=== PATIENT | female | born 1955 | race Caucasian/White ===

== ENCOUNTER 2016-10-18 16:51 | Observation (INO) ==
[2016-10-18] MEDS ORDERED: Aspirin 81 MG TAB.CHEW PO ONE (16:57)
--- NOTE | 2016-10-18 17:06 | Emergency Department Note ---
Disposition Clinical Impression: Chest pain Qualifiers: Chest pain type: unspecified Qualified Code(s): R07.9 - Chest pain, unspecified Disposition: Admitted As Inpatient Condition: Fair Referrals: NO,PCP [Primary Care Provider] - Forms: ED Satisfaction Letter Time of Disposition: 17:50 Chest Pain HPI - General Chief Complaint: ED Chest Pain Stated Complaint: Chest pain Time Seen by Provider: 10/18/16 16:56 Source: patient Mode of arrival: ambulatory Limitations: no limitations Vital Signs Reviewed: Yes Nursing Notes Reviewed: Yes - History of Present Illness HPI Narrative: 61-year-old who presents to emergency department complaining of chest pain she says begun for a couple weeks worse over the last 3 days. Patient has risk factors she is a cigarette smoker otherwise she denies hypertension, diabetes, hyper cholesterolemia. Patient has had no recent evaluation of her heart no stress testing or cardiac catheter. Pt complaint: chest pain Onset (ago): week(s) (2) Duration: constant Onset: during rest Pain Location: substernal, left chest, right chest Severity: moderate Severity scale (1-10): 8 Quality: tightness, aching Pain Radiation: RUE Improves with: nothing Worsens with: nothing - Related Data Allergies Allergy/AdvReac Type Severity Reaction Status Date / Time No Known Allergies Allergy Unverified 10/05/15 14:54 Constitutional: Denies: fever, chills, weakness, weight change Eyes: Denies: eye pain, eye discharge, vision change ENT ED: Denies: ear pain, throat pain, dental pain, hearing loss, epistaxis, congestion, dysphagia Cardiovascular: Reports: chest pain. Denies: palpitations, dyspnea on exertion , edema, syncope Respiratory: Denies: cough, dyspnea, wheezes, hemoptysis, stridor Gastrointestinal: Denies: abdominal pain, nausea, vomiting, diarrhea, constipation, hematemesis, melena, hematochezia Genitourinary: Denies: dysuria, frequency, hematuria, discharge Musculoskeletal: Denies: back pain, neck pain, arthralgia, myalgia Integumentary: Denies: rash, abrasion, lesions Neurological: Denies: headache, weakness, numbness, paresthesias, confusion, abnormal gait, vertigo Psychiatric: Denies: anxiety, depression, suicidal thoughts, homicidal thoughts , auditory hallucinations, visual hallucinations Endocrine: Denies: fatigue Hematological/Lymphatic: Denies: easy bleeding, easy bruising Allergic/Immunologic: Denies: facial swelling, urticaria Chest Pain PMH - Past Medical History Medical history: Reports: GERD Psychiatric history: Reports: anxiety, depression - Social History Smoking Status: Current every day smoker Alcohol use: Reports: none Drug use: Reports: none Physical Exam - General Limitations: no limitations General appearance: alert - Head Head exam: atraumatic, normocephalic, normal inspection - Eye Eye exam: Present: normal appearance, PERRL, EOMI - ENT ENT exam: normal exam, normal oropharynx, mucous membranes moist - Neck Neck exam: Present: normal inspection, full ROM, trachea midline - Chest Chest inspection: Present: normal inspection, symmetric chest wall rise - Respiratory Respiratory exam: Present: normal lung sounds bilaterally - Cardiovascular Cardiovascular exam: Present: regular rate, normal rhythm, normal heart sounds - Abdominal Exam Abdominal exam: Present: soft, Non-Tender. Absent: tenderness, distention, guarding, rebound, rigidity - Extremities Exam Extremities exam: Present: normal inspection, full ROM. Absent: tenderness, pedal edema - Expanded Lower Extremity Exam Neurovascular/Tendon exam: Absent: motor deficit, sensory deficit, tendon deficit Gait: not tested/not observed - Back Exam Back exam: Present: normal inspection, full ROM. Absent: tenderness - Neurological Exam Neurological exam: Present: alert, oriented X3 - Psychiatric Psychiatric exam: Present: normal affect, normal mood - Skin Skin exam: Present: warm Course - Consultations Consultation #1: Discussed with , it. Time: 18:15 Vital Signs Temperature 98.2 F 10/18/16 16:51 Pulse Rate 86 10/18/16 16:51 Respiratory Rate 18 10/18/16 16:51 Blood Pressure 148/96 10/18/16 16:51 O2 Sat by Pulse Oximetry 99 10/18/16 16:51 Temperature 98.2 F 10/18/16 16:51 Pulse Rate 66 10/18/16 17:49 Respiratory Rate 16 10/18/16 17:49 Blood Pressure 123/76 10/18/16 17:49 O2 Sat by Pulse Oximetry 96 10/18/16 17:49 Oxygen Delivery Oxygen Delivery Room Air Chest Pain - Lab Data Lab results reviewed: Yes I reviewed the patient's lab results. Result diagrams: 10/18/16 17:11 10/18/16 17:11 Lab Results 10/18/16 10/18/16 10/18/16 Range/Units 17:11 17:11 17:11 WBC 8.0 (4.3-11.1) K/mcL RBC 5.08 H (3.82-4.97) M/mcL Hgb 15.3 (11.5-15.4) g/dL Hct 45.8 H (35.3-44.9) % MCV 90.2 (83.0-100.0) fL MCH 30.1 (28.0-33.3) pg MCHC 33.4 (31.6-35.5) g/dL RDW 13.0 (11.5-14.5) % Plt Count 188 (140-400) K/mcL MPV 10.3 (9.4-12.4) fL Immature Gran % 0.5 (0-4) % Seg Neutrophils % 57.2 % Lymphocytes % 31.7 % Monocytes % 7.0 % Eosinophils % 3.1 % Basophils % 0.5 % Neutrophils # 4.6 (1.6-8.9) K/mcL Lymphocytes # 2.6 (0.6-4.6) K/mcL Monocytes # 0.6 (0.0-1.3) K/mcL Eosinophils # 0.3 (0.0-0.6) K/mcL Basophils # 0.0 (0.0-0.2) K/mcL PT 11.4 (9.4-12.1) Seconds INR 1.1 APTT 29.1 (26.0-36.0) Seconds Sodium 139 (136-145) mEq/L Potassium 3.7 (3.5-4.5) mEq/L Chloride 107 (98-109) mEq/L Carbon Dioxide 23 (19-29) mEq/L BUN 19 (7-20) mg/dL Creatinine 1.22 H (0.57-1.11) mg/dL Est GFR ( Amer) 55 L (> 60) Est GFR (Non-Af Amer) 45 L (> 60) BUN/Creatinine Ratio 16 (6-26) Glucose 114 H (70-99) mg/dL Calculated Osmolality 291 (280-300) Calcium 9.6 (8.6-10.8) mg/dL Troponin I (0-0.03) ng/mL 10/18/16 Range/Units 17:11 WBC (4.3-11.1) K/mcL RBC (3.82-4.97) M/mcL Hgb (11.5-15.4) g/dL Hct (35.3-44.9) % MCV (83.0-100.0) fL MCH (28.0-33.3) pg MCHC (31.6-35.5) g/dL RDW (11.5-14.5) % Plt Count (140-400) K/mcL MPV (9.4-12.4) fL Immature Gran % (0-4) % Seg Neutrophils % % Lymphocytes % % Monocytes % % Eosinophils % % Basophils % % Neutrophils # (1.6-8.9) K/mcL Lymphocytes # (0.6-4.6) K/mcL Monocytes # (0.0-1.3) K/mcL Eosinophils # (0.0-0.6) K/mcL Basophils # (0.0-0.2) K/mcL PT (9.4-12.1) Seconds INR APTT (26.0-36.0) Seconds Sodium (136-145) mEq/L Potassium (3.5-4.5) mEq/L Chloride (98-109) mEq/L Carbon Dioxide (19-29) mEq/L BUN (7-20) mg/dL Creatinine (0.57-1.11) mg/dL Est GFR ( Amer) (> 60) Est GFR (Non-Af Amer) (> 60) BUN/Creatinine Ratio (6-26) Glucose (70-99) mg/dL Calculated Osmolality (280-300) Calcium (8.6-10.8) mg/dL Troponin I 0.00 (0-0.03) ng/mL - Radiology Data Radiology results reviewed: Yes I reviewed the patient's radiology results. Chest X-Ray 10/18/16 16:57 IMPRESSION: Negative D/ / Adis Antoine MD / Adis Antoine MD Interpreting Provider: Adis Antoine MD - EKG Data EKG attestation: Yes I reviewed and interpreted this EKG. EKG shows normal: sinus rhythm Rate: normal Rhythm: NSR Interpretation: no acute changes Heart Score - Score History: Moderately Suspicious EKG: Normal Age: 45-65 Risk Factors: 1-2 risk factors Troponin: Less than normal limit HEART Score Total: 3
[2016-10-18 17:20] LABS: Basophils % 0.5 %; Eosinophils # 0.3 K/mcL (0.0-0.6); Eosinophils % 3.1 %; Hematocrit 45.8 % (35.3-44.9); Hemoglobin 15.3 g/dL (11.5-15.4); Immature Granulocytes % 0.5 % (0-4); Lymphocytes # 2.6 K/mcL (0.6-4.6); Lymphocytes % 31.7 %; Mean Corpuscular HGB Conc 33.4 g/dL (31.6-35.5); Mean Corpuscular Hemoglobin 30.1 pg (28.0-33.3); Mean Corpuscular Volume 90.2 fL (83.0-100.0); Mean Platelet Volume 10.3 fL (9.4-12.4); Monocytes # 0.6 K/mcL (0.0-1.3); Neutrophils # 4.6 K/mcL (1.6-8.9); Platelet Count 188 K/mcL (140-400); Red Blood Count 5.08 M/mcL (3.82-4.97); Segmented Neutrophils % 57.2 %
[2016-10-18 17:23] LABS: INR 1.1; Prothrombin Time 11.4 Seconds (9.4-12.1)
[2016-10-18 17:26] LABS: Activated Partial Thrombo Time 29.1 Seconds (26.0-36.0)
[2016-10-18 17:30] LABS: Calcium 9.6 mg/dL (8.6-10.8); Potassium 3.7 mEq/L (3.5-4.5)
[2016-10-18] MEDS ORDERED: Acetaminophen 325 MG TABLET PO PRN (19:25)
[2016-10-18] MEDS ORDERED: *HR* HYDROcodone/Acet 5/325 mg TABLET PO PRN (19:25)
[2016-10-18] MEDS ORDERED: Naloxone 0.4 MG/ML INJ IVP PRN (19:25)
[2016-10-18] MEDS ORDERED: Ondansetron 4 MG/2 ML VIAL IVP PRN (19:25)
[2016-10-18] MEDS ORDERED: Nitroglycerin 0.4 MG TAB.SUBL SL PRN (19:31)
[2016-10-18] MEDS ORDERED: traMADol 50 MG TABLET PO PRN (20:19)
--- NOTE | 2016-10-18 20:28 | Internal Med History&Physical ---
Date of Encounter: 10/19/16 Time of Encounter: 19:00 Assessment and Plan (1) Chest pain Current visit: Yes Status: Acute 1 patient has been experiencing chest pain off and on for approximately 2 weeks. Past few days she has been in experiencing increasing weakness as well as nausea/diaphoresis on exertion She does have risk factors including age obesity and smoking. First cardiac troponins are negative will continue to cycle cardiac troponins 2 aspirin, nitroglycerin and morphine for chest pain as needed, patient's heart rate was in the 60s will hold off on beta sujata for now 3 oxygen as needed maintain SPO2 greater than 92% 4 check TSH lipid profile in the a.m. 5 we will make patient nothing by mouth after midnight, pharmacological stress in a.m. 6 cardiac echo 7 consulted/ cardiology-will need to be notified per day team Qualifiers: Chest pain type: unspecified Qualified Code(s): R07.9 - Chest pain, unspecified (2) Tobacco abuse Current visit: Yes Status: Acute 1 currently smokes half a pack a day encouraged patient to stop smoking offered nicotine patch (3) DVT prophylaxis Current visit: Yes Status: Acute 1 encouraged early ambulation Internal Medicine - H&P: HPI Chief complaint: cp Admitted From: Emergency Dept Plans for Post Hospital Care: Home History of present illness: Ms. Witt is a 61 year old female with a past medical hx of GERD and tobacco abuse. According to the patient for approximately 2 weeks she has been experiencing right-sided chest pain she describes as dull achy that radiates to her right shoulder into her shoulder blades and down her right arm. She states the pain is constant and there are no relieving or aggravating factors. She admits to associated symptoms of nausea and dizziness and diaphoresis mostly during exertion the symptoms are relieved with rest. She denies any shortness of breath fevers chills cough. Over the past few days she has been experiencing increasing fatigue and general malaise as well as continued chest pain. She went to her primary care physician who advised her to go to the ER for evaluation. According to the ERpatient first cardiac troponin was negative chest x-ray with no acute process EKG with no ST-T wave abnormalities. Patient was given aspirin, has been admitted for further work up evaluation. The present time the patient denies any chest pain shortness of breath. However she does experience pain to right side of chest and shoulder on palpation. At Present time she appears to be hemodynamically stable I review this case with Dr. Salomon who agrees with plan Past Med Surg Social Fam HX - Past Medical History Medical history: GERD Psychiatric history: anxiety, depression - Social History Smoking Status: Current every day smoker Smokeless Tobacco Status: No Alcohol use: none Drug use: none - Family History Father Living Status: Cause of : IN Hx Family Cardiac Disorders: Yes Mother Living Status: Cause of : unknown Hx Family Neurologic Disorders: Yes Internal Medicine - H&P: Meds ClonazePAM [Klonopin] 0.5 - 1 mg PO HS 10/18/16 [History] Dexlansoprazole [Dexilant] 60 mg PO DAILY 10/18/16 [History] Tramadol HCl [Ultram] 50 - 100 mg PO BID 10/18/16 [History] Zoloft 10/18/16 [History] Allergies No Known Allergies Allergy (Unverified 10/05/15 14:54) All Systems PM: A 10-system review of systems was performed and is negative for pertinent findings except as documented above in the HPI. - Constitutional Constitutional: fatigue, weakness - Cardiovascular Cardiovascular ROS IM: chest pain, diaphoresis, lightheadedness - Respiratory Respiratory: no cough, no dyspnea, no wheezing, no excessive phlegm production - Gastrointestinal Gastrointestinal: nausea - Genitourinary Genitourinary: no change in urinary stream, no dysuria, no flank pain, no hematuria - Musculoskeletal Musculoskeletal ROS IM: as per HPI - Integumentary Integumentary IM: no rash, no unusual bruising - Neurological Neurological ROS: no confusion, no convulsions, no focal weakness, no numbness, no tingling, no tremor(s) - Constitutional Vitals: Temp Pulse Resp BP Pulse Ox 97.8 F 70 16 130/83 97 10/18/16 20:11 10/18/16 20:11 10/18/16 20:11 10/18/16 20:11 10/18/16 20:11 General appearance: Present: A&O X 3, answers questions appropriately - Head Head exam: Present: atraumatic, normocephalic - Eye Eye exam: Present: PERRL, conjuntiva pink, sclera anicteric Pupils: Present: PERRL - Respiratory Respiratory exam: Present: CTAB. Absent: accessory muscle use, rales, rhonchi, wheezes - Cardiovascular Cardiovascular exam: Present: RRR, +S1, +S2. Absent: diastolic murmur, gallop, rubs, systolic murmur - Extremities Exam Extremities exam: Present: warm, radial pulses palpable and symetrical. Absent : calf tenderness, cyanotic, pedal edema - Neurological Exam Neurological exam: Present: CN II-XII intact, oriented X3, no focal deficits. Absent: pronater drift, facial droop, speech deficit - Skin Skin exam: Present: dry, intact Internal Med - H&P Results - Labs CBC & Chem 7: 10/18/16 17:11 10/18/16 17:11 - EKG Data EKG shows normal: sinus rhythm Rate: normal - EKG Data Prior EKG available for review: yes When compared to previous EKG: there is no significant change - Diagnostic Studies Chest x-ray Additional comments: Per radiology read no acute process
[2016-10-18] MEDS: Nicotine 7 MG PATCH.TD24 TD SCH (20:48)
[2016-10-18] MEDS: *HR* Morphine 2 MG/ML SYRINGE IVP PRN (20:48)
[2016-10-18] MEDS ORDERED: clonazePAM 0.5 MG TABLET PO SCH (21:00)
--- NOTE | 2016-10-19 01:23 | Event Note ---
Date of Encounter: 10/19/16 Time of Encounter: 01:20 Patient seen and examined with practitioner. 61 year old female who was a lifelong smoker presents to the hospital with anginal chest pains that Occur with exertion. These pains started 2 weeks ago. No prior history of coronary artery disease. I am concerned about her pain appears to be a new onset angina. I will give the patient a dose of Lovenox 100 mg. Trileptal cartogram does not show any subsequent shifts. serial cardiac markers. cardiology service to see the patient.
[2016-10-19] MEDS ORDERED: *HR* Enoxaparin 100 MG/ML SYRINGE SQ ONE (01:24)
[2016-10-19] MEDS ORDERED: *HR* Enoxaparin 40 MG/0.4 ML SYRINGE SQ SCH ×2 (01:30→04:00)
[2016-10-19 04:43] LABS: Basophils # 0.1 K/mcL (0.0-0.2); Basophils % 0.9 %; Eosinophils # 0.3 K/mcL (0.0-0.6); Eosinophils % 4.1 %; Hematocrit 44.9 % (35.3-44.9); Hemoglobin 14.9 g/dL (11.5-15.4); Immature Granulocytes % 0.4 % (0-4); Lymphocytes # 3.1 K/mcL (0.6-4.6); Lymphocytes % 44.7 %; Mean Corpuscular HGB Conc 33.2 g/dL (31.6-35.5); Mean Corpuscular Hemoglobin 29.7 pg (28.0-33.3); Mean Corpuscular Volume 89.6 fL (83.0-100.0); Mean Platelet Volume 10.7 fL (9.4-12.4); Monocytes # 0.5 K/mcL (0.0-1.3); Monocytes % 7.5 %; Neutrophils # 2.9 K/mcL (1.6-8.9); Platelet Count 184 K/mcL (140-400); Red Blood Count 5.01 M/mcL (3.82-4.97); Red Cell Distribution Width 13.2 % (11.5-14.5); Segmented Neutrophils % 42.4 %
[2016-10-19 05:04] LABS: Calcium 9.4 mg/dL (8.6-10.8); Magnesium 1.7 mg/dL (1.6-2.6)
[2016-10-19] MEDS: *HR* Morphine 2 MG/ML SYRINGE IVP PRN (05:14)
[2016-10-19] MEDS ORDERED: Regadenoson 0.4 MG/5 ML SYRINGE IVP ONE (06:13)
[2016-10-19] MEDS ORDERED: Aspirin 81 MG TAB.CHEW PO SCH (09:00)
[2016-10-19] MEDS: Nicotine 7 MG PATCH.TD24 TD SCH (09:46)
[2016-10-19] MEDS ORDERED: *HR* HYDROcodone/Acet 5/325 mg TABLET PO PRN (09:49)
--- NOTE | 2016-10-19 10:04 | Nuclear Medicine Stress Report ---
Regadenoson Nuclear Stress Name: Georgina Witt Date of Study: 10/19/2016 Date: 1955 Ht: 67.0 in Medical Record#: [id number] Age: 61 Wt: 200.0 lb Gender: Female Order #: [id number] Location: [facility] Room: [place] Supervising Provider: Angelo Lr CNP Reading Physician: Félix Henriquez DO, MYRA PALMA FASNC Ordering Physician: Mitra Mcgee CNP Primary Care Physician: Abdi Levy DO Stress Technologist: Nguyen Benitez, FROILAN Orthotic And Prosthetic Technician: Rael Ness Indications: Chest Pain Impression: Pharmacologic stress ECG is negative for ischemia at level of heart rate achieved. Gated EF = 66%. Small sized, mild intensity, fixed apical septal and apex perfusion defect consistent with artifact. Perfusion imaging was negative for ischemia or infarct. History: History of Smoking Stress Test Summary: Stress Test Type: Pharmacologic Regadenoson 0.4mg/5ml given IV Baseline Information: Initial Heart Rate: 56 Blood Pressure: 138/82 Stress Information: Test Terminated Due to (primary): As per protocol Maximum Blood Pressure: 124/88 Maximum Heart Rate: 94 Percent Maximum Heart Rate Achieved: 59 Double Product: [id number] METS Reached: 1 Symptoms: Nausea Nuclear Summary: SPECT myocardial perfusion imaging using Tc99m Sestamibi given intravenously was performed at rest and following cardiac stress testing. The resting images were obtained following initial dose of 11.2 mCi. Following stress an additional dose of 33.9 mCi was given at peak exercise or 30 seconds post regadenoson infusion. Medication Given: Time Medication Dose Units Route 07:50 Aminophylline 5 ml Intravenous Findings: Stress Note * Resting ECG demonstrated normal sinus rhythm. * No baseline arrhythmias were noted. * Pharmacologic stress ECG is negative for ischemia at level of heart rate achieved. * No arrhythmias were noted during stress. * Patient had no chest pain during stress. * Normal hemodynamic responses to pharmacologic stress. Study Quality * Study quality was fair. Gated EF % * Gated EF = 66%. Left Ventricle * The left ventricle is not dilated. LVEDV = 94 mL. * Normal wall motion. Apical Perfusion Rest * The apex and apical septal segments show a mild reduction in perfusion. Apical Perfusion Stress * The apex and apical septal segments show a mild reduction in perfusion. TID * No evidence of transient ischemic dilatation. TID ratio = 1.07. Lung Uptake * There is no evidence of increase lung uptake. Updated by Félix Henriquez DO, LOUIE, MYRA, YAAKOV on 10/19/2016 9:59:28 AM electronically signed on 10/19/2016 10:00:38 AM with status of Final
[2016-10-19 11:27] VITALS: BP 136/94
--- NOTE | 2016-10-19 11:40 | ECHO - Doppler Report ---
Echocardiogram Name: Georgina Witt Date of Study: 10/19/2016 Date: 1955 Ht: 67.0 in Medical Record#: [id number] Age: 61 Wt: 229.0 lb Gender: Female BSA: 2.14 Order #: [id number] Location: [facility] Room #: [id number] Reading Physician: Félix Henriquez DO, MYRA PALMA FASNC Computer Systems Security Analyst: Shwetha Moreno Ordering Physician: Maricel Foote CNP Primary Physician: Abdi Levy DO Indications: Chest pain Impressions: LVEF 60-65%. Normal LV chamber size, wall thickness and function. Mild left ventricular diastolic dysfunction. Normal right ventricular structure and function. No evidence of pulmonary hypertension. No significant valvular dysfunction. Left Ventricular Wall Motion: Rest Echo Findings All wall segments showed normal motion. Findings: Study Quality * Technically adequate exam. ECG Findings * Normal sinus rhythm. Left Ventricle * LVEF 60-65%. * Normal LV chamber size, wall thickness and function. * Mild left ventricular diastolic dysfunction. Right Ventricle * Normal right ventricular structure and function. Left Atrium * Mildly dilated left atrium. Right Atrium * Mildly dilated right atrium. Interatrial Septum * Interatrial septum not well evaluated. Aortic Valve * Trileaflet aortic valve with normal function. * No aortic regurgitation. * No aortic stenosis. Mitral Valve * Mildly thickened mitral valve leaflets. * No mitral regurgitation. * No mitral stenosis. Tricuspid Valve * Normal tricuspid valve structure and function. * Trace tricuspid regurgitation. * No evidence of pulmonary hypertension. Pulmonic Valve * Normal pulmonic valve structure and function. * No pulmonic regurgitation. Aorta * Normally sized aortic root. Pericardium * The pericardium appears normal. IVC * Normal IVC dimensions and inspiratory collapse. Pulmonary Artery * Normal visualized portions of the main pulmonary artery. History History of Smoking Years 20 Packs 1 Measurements: BP: 120/ 83 2D Normal Values RVIDd: 3.40 cm <2.7 cm IVSd: 1.10 cm 0.6 - 1.0 cm LVIDd: 4.70 cm 3.7 - 5.6 cm LVPWd: 1.20 cm 0.6 - 1.1 cm LVIDs: 3.50 cm 1.5 - 3.6 cm AO: 2.40 cm < 4.0 cm LA: 4.40 cm 2.0 - 4.0cm %FS: 25.50 cm >25 % LA volume: 43 Mitral Valve Peak E:.64 m/sec Peak A:.65 m/sec E/A Ratio:1 Peak E' Lat Enrique:7.51 cm/s Peak E' Med Enrique:3.51 cm/s E/E' Lat Ratio:8.5 E/E' Med Ratio:18.1 Tricuspid Valve TV Regurg Peak Grad: 15.00mmHg TV Regurg Peak Enrique: 1.94m/sec Updated by Félix Henriquez DO, FACDarlene, MYRA, YAAKOV on 10/19/2016 11:34:16 AM electronically signed on 10/19/2016 11:35:09 AM with status of Final Wall Motion [place]: 1=Normal, 2=Hypokinesis, 3=Akinesis, 4=Dyskinesis, 5=Aneurysmal, 6=Hyperkinetic, X=Not Visualized (Blank)=Missing
--- NOTE | 2016-10-19 12:24 | Discharge Summary ---
Date of Encounter: 10/19/16 Time of Encounter: 12:00 - Discharge Diagnosis (1) Chest pain Priority: Primary Status: Ruled-out Comments: Acute coronary syndrome ruled out. Chest x-ray negative. Troponins negative. Echocardiogram and stress test unremarkable. Physical examination consistent with musculoskeletal etiology Qualifiers: Chest pain type: unspecified Qualified Code(s): R07.9 - Chest pain, unspecified (2) Muscle strain of shoulder region Priority: Primary Status: Acute Comments: Physical examination highly consistent with musculoskeletal etiology. Point tenderness noted to supraspinatus, infraspinatus and deltoid muscles with intermittent shooting of pain down her right posterior upper arm. We will symptomatically treat with lidocaine, muscle relaxer, and NSAIDs for pain and inflammation. No known injuries, follow-up outpatient. Arm is neurovascularly intact. (3) [place] (acute kidney injury) Priority: Primary Status: Acute Comments: Acute kidney injury versus chronic kidney disease stage III. No prior results for comparison, recommend follow-up outpatient. Patient denied dysuria (4) DVT prophylaxis Priority: Primary Status: Acute Comments: Subcutaneous Lovenox while admitted (5) Tobacco abuse Priority: Secondary Status: Chronic Comments: declined counseling - Discharge Medications Prescriptions: Ibuprofen 800 mg PO Q8H PRN #21 tablet PRN Reason: Pain Lidocaine Patch [Lidoderm 5% patch] 1 each TP DAILY PRN #7 adh..patch PRN Reason: Pain Tizanidine HCl [Zanaflex] 2 mg PO TID PRN #15 cap PRN Reason: Muscle Spasm Home Medications: ClonazePAM [Klonopin] 0.5 - 1 mg PO HS 10/18/16 [History] Dexlansoprazole [Dexilant] 60 mg PO DAILY 10/18/16 [History] Tramadol HCl [Ultram] 50 - 100 mg PO BID 10/18/16 [History] Zoloft 10/18/16 [History] Ibuprofen 800 mg PO Q8H PRN #21 tablet 10/19/16 [Rx] Lidocaine Patch [Lidoderm 5% patch] 1 each TP DAILY PRN #7 adh..patch 10/19/16 [ Rx] Tizanidine HCl [Zanaflex] 2 mg PO TID PRN #15 cap 10/19/16 [Rx] Allergies/Adverse Reactions: Allergies No Known Allergies Allergy (Unverified 01/27/16 14:54) Procedures/tests Complete & Pending: Procedures Performed prior 72 hours Category Date Time Status NM alfonso perf SPECT multi [NM] Routine Exams 10/18/16 20:15 Taken EV echocardiogram Routine Y 10/19/16 20:15 Completed SP pharm nuclear stress Routine Y 10/18/16 20:14 Completed Date of admission: 10/18/16 18:18 Primary care physician: Cam Liu MD Discharging clinician: Mitra Mcgee Anticipated date of discharge: 10/19/16 - Patient Status Disposition: Home, Self-Care Condition: Fair Functional capacity at discharge: independent ambulation Overall status at discharge: patient is back to baseline - Discharge Instructions Follow Up With: Cam Liu MD [Primary Care Provider] - Additional Instructions: followup with your primary care provider in 1-2 weeks - Diet and Activity Activity: increase activity as tolerated Diet: low salt diet Hospital course: Ms. Witt is a 61 year old female with past medical history of GERD and tobacco abuse. She presented to the emergency department chief complaint 2 week history of right-sided chest pain described as dull and aching and radiates to her right shoulder, and in her shoulder blades, and down her right arm. Patient stated the pain is constant and is not relieved or aggravated by anything. Patient also endorses associated symptoms of nausea, dizziness, and diaphoresis with exertion that are relieved with rest. Patient denies shortness of breath, fever, cough. On the 2-3 days prior to presentation, patient had started to experience increased fatigue and generalized malaise since she went to her primary care provider sent her to the emergency department. Workup in the emergency department unremarkable. Chest x-ray negative. Troponin negative. Patient was admitted to the hospitalist service for further evaluation and management. Patient had an echocardiogram was unremarkable with ejection fraction of 60-65% and mild diastolic dysfunction. Patient euvolemic on examination to this admission. She denied shortness of breath throughout this admission. She also had a nuclear stress test that was negative for ischemia or infarct. Acute coronary syndrome ruled out. On examination, patient's examination is highly consistent with musculoskeletal etiology and strain of her infraspinatus, supraspinatus, or teres major muscles. No known injuries to the area. Patient was discharged home in stable condition with prescriptions for lidocaine patch, NSAID therapy, as well as a 5 day course of muscle relaxer (Tizanidine as the patient stated Flexeril does not work for her). Patient also requested narcotic therapy which she was not given as NSAIDs are a more appropriate treatment for muscle strain. ITS Impressions Chest X-Ray 10/18/16 16:57 IMPRESSION: Negative D/ / Adis Antoine MD / Adis Antoine MD Interpreting Provider: Adis Antoine MD Echocardiogram impressions: LVEF 60-65%. Normal LV chamber size, wall thickness and function. Mild left ventricular diastolic dysfunction. Normal right ventricular structure and function. No evidence of pulmonary hypertension. No significant valvular dysfunction. Nuclear stress test impression: Pharmacologic stress ECG is negative for ischemia at level of heart rate achieved. Gated ejection fraction of 66%. Small sized, mild intensity, fixed apical septal and apex perfusion defect consistent with artifact. Perfusion imaging was negative for ischemia or infarct. - Time Spent with Patient Total time spent providing and/or coordinating discharge services: - Constitutional Vitals: Temp Pulse Resp BP Pulse Ox 98 F 62 16 136/94 94 L 10/19/16 11:23 10/19/16 11:23 10/19/16 11:23 10/19/16 11:23 10/19/16 11:23 General appearance: Present: A&O X 3, pleasant, no acute distress, answers questions appropriately - Head Head exam: Present: atraumatic, normocephalic - Eye Eye exam: Present: PERRL, conjuntiva pink, sclera anicteric Pupils: Present: PERRL - Neck Neck exam general surgery: Present: supple, trachea midline. Absent: lymphadenopathy - Respiratory Respiratory exam: Present: decreased breath sounds. Absent: accessory muscle use, rales, respiratory distress, rhonchi, wheezes - Cardiovascular Cardiovascular exam: Present: RRR, +S1, +S2. Absent: diastolic murmur, gallop, rubs, systolic murmur - GI/Abdominal GI/Abdominal exam: Present: normal bowel sounds, soft, no peritoneal signs. Absent: distended, tenderness - Extremities Exam Extremities exam: Present: warm, radial pulses palpable and symetrical. Absent : calf tenderness, cyanotic, pedal edema - Back Exam Back exam: Present: muscle spasm, tenderness - Neurological Exam Neurological exam: Present: alert, CN II-XII intact, normal gait, oriented X3, no focal deficits, strengths equal and symetr throughout. Absent: pronater drift, facial droop, speech deficit - Skin Skin exam: Present: dry, intact, normal color, warm
--- NOTE | 2016-10-19 16:42 | Electrocardiograph Report ---
[place] [id number] Test Date: 2016-10-18 Pat Name: Georgina Witt Department: 104 Room: 3B22 Gender: F Cae Engineer: : 1955 Requested By: Kenneth Walton Order Number: [id number] Reading MD: Nikkie Bowen Measurements Intervals [place] Rate: 82 P: 60 SC: 150 QRS: 44 QRSD: 92 T: 58 QT: 356 QTc: 395 Interpretive Statements SINUS RHYTHM Electronically Signed On 10-19-2016 16:40:05 EST by Nikkie Bowen
== END 2016-10-19 13:02 | disposition home or self-care (01) ==
LOC: 3BNU 16:51 → EMEROO 16:51 → 3BNU 19:14
PROVIDERS: ADMIT Family Medicine; ATTEND Nurse Practitioner Family

== ENCOUNTER 2016-12-21 08:58 | Observation (INO) ==
[2016-12-21] MEDS ORDERED: Aspirin 81 MG TAB.CHEW PO STA (09:10)
--- NOTE | 2016-12-21 09:15 | Emergency Department Note ---
Disposition Clinical Impression: NSTEMI (non-ST elevated myocardial infarction) Disposition: Admitted As Inpatient Referrals: Abdi Levy DO [Primary Care Provider] - Forms: ED Satisfaction Letter Chest Pain HPI - General Chief Complaint: ED Chest Pain Stated Complaint: Chest Pain Time Seen by Provider: 12/21/16 09:10 Source: patient, family Limitations: no limitations Vital Signs Reviewed: Yes Nursing Notes Reviewed: Yes - History of Present Illness HPI Narrative: Patient presents with complaint of chest pain that started this morning. Patient has a pressure radiation to her neck and both shoulders. Patient denies any neck relieving factors. Patient sclerosis pressure. Patient states she has never had anything like this before. Reviewed her medical chart reveals the patient was seen here in October 2016 for similar symptoms. Patient has fevers chills denies cough. Patient denies dizziness or numbness and tingling. Severity scale (1-10): 9 - Related Data Home Medications Medication Instructions Recorded Confirmed ClonazePAM [Klonopin] 0.5 - 1 mg PO HS 10/18/16 10/18/16 Dexlansoprazole [Dexilant] 60 mg PO DAILY 10/18/16 10/18/16 Tramadol HCl [Ultram] 50 - 100 mg PO BID 10/18/16 10/18/16 Zoloft 10/18/16 Previous Rx's Medication Instructions Recorded Ibuprofen 800 mg PO Q8H PRN #21 tablet 10/19/16 Lidocaine Patch [Lidoderm 5% patch] 1 each TP DAILY PRN #7 adh..patch 10/19/16 Tizanidine HCl [Zanaflex] 2 mg PO TID PRN #15 cap 10/19/16 Allergies Allergy/AdvReac Type Severity Reaction Status Date / Time iodine Allergy Hives Verified 11/09/16 11:47 All systems ED: reviewed and negative except as stated. Chest Pain PMH - Past Medical History Medical history: Reports: GERD Psychiatric history: Reports: anxiety, depression - Social History Smoking Status: Current every day smoker Alcohol use: Reports: none Drug use: Reports: none Physical Exam - General Limitations: no limitations General appearance: alert, in no apparent distress - Head Head exam: atraumatic, normocephalic, normal inspection - Eye Eye exam: Present: normal appearance, PERRL, EOMI - ENT ENT exam: normal exam, normal oropharynx, mucous membranes moist - Neck Neck exam: Present: normal inspection, full ROM, trachea midline - Chest Chest inspection: Present: normal inspection - Respiratory Respiratory exam: Present: normal lung sounds bilaterally - Cardiovascular Cardiovascular exam: Present: regular rate, normal rhythm, normal heart sounds - Abdominal Exam Abdominal exam: Present: soft, Non-Tender. Absent: tenderness, distention, guarding, rebound, rigidity - Extremities Exam Extremities exam: Present: normal inspection, full ROM. Absent: tenderness, pedal edema - Back Exam Back exam: Present: normal inspection, full ROM. Absent: tenderness - Neurological Exam Neurological exam: Present: alert, oriented X3 - Psychiatric Psychiatric exam: Present: normal affect, normal mood - Skin Skin exam: Present: warm, dry, intact, normal color Course Vital Signs Temperature 98.9 F 12/21/16 09:03 Pulse Rate 96 12/21/16 09:03 Respiratory Rate 20 12/21/16 09:03 Blood Pressure 134/103 12/21/16 09:03 O2 Sat by Pulse Oximetry 95 12/21/16 09:03 Temperature 98.9 F 12/21/16 09:03 Pulse Rate 83 12/21/16 10:15 Respiratory Rate 18 12/21/16 10:15 Blood Pressure 124/83 12/21/16 10:15 O2 Sat by Pulse Oximetry 94 12/21/16 10:15 Oxygen Delivery Oxygen Delivery Room Air Chest Pain - Differential Diagnosis Likely: fracture of rib, pneumothorax, st elevation myocardial infraction - Lab Data Lab results reviewed: Yes I reviewed the patient's lab results. Result diagrams: 12/21/16 09:19 12/21/16 09:19 Lab Results 12/21/16 12/21/16 12/21/16 Range/Units 09:19 09:19 09:19 WBC 10.5 (4.3-11.1) K/mcL RBC 4.77 (3.82-4.97) M/mcL Hgb 14.5 (11.5-15.4) g/dL Hct 43.0 (35.3-44.9) % MCV 90.1 (83.0-100.0) fL MCH 30.4 (28.0-33.3) pg MCHC 33.7 (31.6-35.5) g/dL RDW 13.1 (11.5-14.5) % Plt Count 194 (140-400) K/mcL MPV 11.0 (9.4-12.4) fL Immature Gran % 0.6 (0-4) % Seg Neutrophils % 68.8 % Lymphocytes % 19.4 % Monocytes % 8.2 % Eosinophils % 2.6 % Basophils % 0.4 % Neutrophils # 7.2 (1.6-8.9) K/mcL Lymphocytes # 2.0 (0.6-4.6) K/mcL Monocytes # 0.9 (0.0-1.3) K/mcL Eosinophils # 0.3 (0.0-0.6) K/mcL Basophils # 0.0 (0.0-0.2) K/mcL PT 11.9 (9.4-12.1) Seconds INR 1.1 APTT 23.6 L (26.0-36.0) Seconds Sodium 138 (136-145) mEq/L Potassium 3.7 (3.5-4.5) mEq/L Chloride 107 (98-109) mEq/L Carbon Dioxide 20 (19-29) mEq/L BUN 17 (7-20) mg/dL Creatinine 1.38 H (0.57-1.11) mg/dL Est GFR ( Amer) 47 L (> 60) Est GFR (Non-Af Amer) 39 L (> 60) BUN/Creatinine Ratio 12 (6-26) Glucose 97 (70-99) mg/dL Calculated Osmolality 287 (280-300) Calcium 9.4 (8.6-10.8) mg/dL Total Bilirubin 0.9 (0.2-1.2) mg/dL AST 12 (5-34) Units/L ALT 13 (0-55) Units/L Alkaline Phosphatase 72 (38-126) Units/L Troponin I (0-0.03) ng/mL Serum Total Protein 7.3 (6.0-8.3) g/dL Albumin 3.2 L (3.5-5.0) g/dL Globulin 4.1 H (2.4-3.5) g/dL Albumin/Globulin Ratio 0.8 L (1.1-2.2) 12/21/16 Range/Units 09:19 WBC (4.3-11.1) K/mcL RBC (3.82-4.97) M/mcL Hgb (11.5-15.4) g/dL Hct (35.3-44.9) % MCV (83.0-100.0) fL MCH (28.0-33.3) pg MCHC (31.6-35.5) g/dL RDW (11.5-14.5) % Plt Count (140-400) K/mcL MPV (9.4-12.4) fL Immature Gran % (0-4) % Seg Neutrophils % % Lymphocytes % % Monocytes % % Eosinophils % % Basophils % % Neutrophils # (1.6-8.9) K/mcL Lymphocytes # (0.6-4.6) K/mcL Monocytes # (0.0-1.3) K/mcL Eosinophils # (0.0-0.6) K/mcL Basophils # (0.0-0.2) K/mcL PT (9.4-12.1) Seconds INR APTT (26.0-36.0) Seconds Sodium (136-145) mEq/L Potassium (3.5-4.5) mEq/L Chloride (98-109) mEq/L Carbon Dioxide (19-29) mEq/L BUN (7-20) mg/dL Creatinine (0.57-1.11) mg/dL Est GFR ( Amer) (> 60) Est GFR (Non-Af Amer) (> 60) BUN/Creatinine Ratio (6-26) Glucose (70-99) mg/dL Calculated Osmolality (280-300) Calcium (8.6-10.8) mg/dL Total Bilirubin (0.2-1.2) mg/dL AST (5-34) Units/L ALT (0-55) Units/L Alkaline Phosphatase (38-126) Units/L Troponin I 0.17 H* (0-0.03) ng/mL Serum Total Protein (6.0-8.3) g/dL Albumin (3.5-5.0) g/dL Globulin (2.4-3.5) g/dL Albumin/Globulin Ratio (1.1-2.2) - Radiology Data Radiology results reviewed: Yes I reviewed the patient's radiology results. Chest X-Ray 12/21/16 09:10 IMPRESSION: Stable portable study. D/ / Cassandra Rahman Cha, MD / Cassandra Rahman Cha, MD Interpreting Provider: Cassandra Rahman Cha, MD - EKG Data EKG attestation: Yes I reviewed and interpreted this EKG. EKG shows normal: sinus rhythm Rate: normal Rhythm: NSR Critical Care Time Total Critical Care Time: 30 Attestation: Critical care performed: Time is exclusive of separately billable procedures. Time includes: direct patient care, patient reassessment, coordination of patient care, interpretation of data (laboratory data, radiology data, and respiratory data), review of patient's medical records, medical consultation and documentation of patient care. Procedures included in critical care time: Procedures excluded from critical care time:
[2016-12-21] MEDS: Nitroglycerin 0.4 MG TAB.SUBL SL PRN ×2 (09:30→09:43)
[2016-12-21 09:35] LABS: INR 1.1; Prothrombin Time 11.9 Seconds (9.4-12.1)
[2016-12-21 09:38] LABS: Activated Partial Thrombo Time 23.6 Seconds (26.0-36.0)
[2016-12-21 09:39] LABS: Basophils % 0.4 %; Eosinophils # 0.3 K/mcL (0.0-0.6); Eosinophils % 2.6 %; Hemoglobin 14.5 g/dL (11.5-15.4); Immature Granulocytes % 0.6 % (0-4); Lymphocytes % 19.4 %; Mean Corpuscular HGB Conc 33.7 g/dL (31.6-35.5); Mean Corpuscular Hemoglobin 30.4 pg (28.0-33.3); Mean Corpuscular Volume 90.1 fL (83.0-100.0); Monocytes # 0.9 K/mcL (0.0-1.3); Monocytes % 8.2 %; Neutrophils # 7.2 K/mcL (1.6-8.9); Platelet Count 194 K/mcL (140-400); Red Blood Count 4.77 M/mcL (3.82-4.97); Red Cell Distribution Width 13.1 % (11.5-14.5); Segmented Neutrophils % 68.8 %
[2016-12-21 09:40] LABS: Albumin 3.2 g/dL (3.5-5.0); Albumin/Globulin Ratio 0.8 (1.1-2.2); Bilirubin,Total 0.9 mg/dL (0.2-1.2); Calcium 9.4 mg/dL (8.6-10.8); Globulin 4.1 g/dL (2.4-3.5); Potassium 3.7 mEq/L (3.5-4.5); Total Protein 7.3 g/dL (6.0-8.3)
[2016-12-21] MEDS ORDERED: *HR* Morphine 2 MG/ML SYRINGE IV ONE (09:58)
[2016-12-21] MEDS ORDERED: Ondansetron 4 MG/2 ML VIAL IV ONE (10:08)
[2016-12-21] MEDS ORDERED: Naloxone 0.4 MG/ML INJ IVP PRN (12:47)
[2016-12-21] MEDS ORDERED: tiZANidine 4 MG TABLET PO PRN (12:48)
--- NOTE | 2016-12-21 12:54 | Internal Med History&Physical ---
Date of Encounter: 12/21/16 Time of Encounter: 12:50 Assessment and Plan (1) Chest pain Current visit: No Status: Ruled-out first trop is 0.1, will trend trop. reports that chest pain is better now, no ischemic EKG changes recently was admitted for same and had ECHO with normal LVEF and mild DD, stress test was negative for ischemia, however trop was negative last time. if trop is peristently elevated, will consult cardio. continuous cardiac monitoring. ntg prn for chest pain, morphine prn Qualifiers: Chest pain type: unspecified Qualified Code(s): R07.9 - Chest pain, unspecified (2) DVT prophylaxis Current visit: No Status: Acute (3) Tobacco abuse Current visit: No Status: Chronic Internal Medicine - H&P: HPI Chief complaint: chest pain Admitted From: Home Plans for Post Hospital Care: Home History of present illness: Ms. Witt is a 61 year old female with PMH of GERD and smoker presents with complaint of chest pain that started this morning. she says the chest pain woke her up and it was a pressure like sensation in her mid sternum radiation to her neck and both shoulders. Patient denies any pain relieving factors. she was recently admitted on oct 2016 for chest pain and had ECHO and stress test that was negative. Patient states she has never had anything like this before. Patient has fevers chills denies cough. Patient denies dizziness or numbness and tingling. No sob. At ED,she was given nitroglycerin x2 which she says did not help. she was then given morphine which she said made her nauseated but eased her pain. she has no vomiting or palpitations. Past Med Surg Social Fam HX - Past Medical History Medical history: GERD Psychiatric history: anxiety, depression - Social History Smoking Status: Current every day smoker Smokeless Tobacco Status: No Alcohol use: none Drug use: none - Family History Father Living Status: Hx Family Cardiac Disorders: Yes Mother Living Status: Hx Family Neurologic Disorders: Yes Internal Medicine - H&P: Meds ClonazePAM [Klonopin] 0.5 - 1 mg PO HS 10/18/16 [History] Dexlansoprazole [Dexilant] 60 mg PO DAILY 10/18/16 [History] Tramadol HCl [Ultram] 50 - 100 mg PO BID 10/18/16 [History] Ibuprofen 800 mg PO Q8H PRN #21 tablet 10/19/16 [Rx] Lidocaine Patch [Lidoderm 5% patch] 1 each TP DAILY PRN #7 adh..patch 10/19/16 [ Rx] Tizanidine HCl [Zanaflex] 2 mg PO TID PRN #15 cap 10/19/16 [Rx] Albuterol Sulfate [Proair Hfa] 2 puff IH Q4H PRN 12/21/16 [History] Allergies iodine Allergy (Verified 11/09/16 11:47) Hives All Systems PM: A 10-system review of systems was performed and is negative for pertinent findings except as documented above in the HPI. - Constitutional Vitals: Temp Pulse Resp BP Pulse Ox 98.3 F 81 16 110/70 94 12/21/16 11:04 12/21/16 11:04 12/21/16 11:04 12/21/16 11:04 12/21/16 11:04 General appearance: Present: A&O X 3, no acute distress Exam: neck- supple chest- b/l clear, no added sounds CVS- s1 and s2, no m/r/g abd- soft, non tender, bs are present ext- no edema neuro- no focal defecit skin- dry Internal Med - H&P Results - Labs CBC & Chem 7: 12/21/16 09:19 12/21/16 09:19
[2016-12-21] MEDS ORDERED: *HR* Morphine 2 MG/ML SYRINGE IVP ONE (13:45)
[2016-12-21] MEDS ORDERED: Ondansetron 4 MG/2 ML VIAL IVP PRN (13:46)
[2016-12-21] MEDS ORDERED: *HR* Enoxaparin 40 MG/0.4 ML SYRINGE SQ SCH (14:55)
[2016-12-21] MEDS ORDERED: *HR* Heparin 5,000 UNIT/ML VIAL IVP PRN ×2 (15:29)
[2016-12-21] MEDS ORDERED: *HR* Heparin 5,000 UNIT/ML VIAL IVP ONE (15:29)
[2016-12-21] MEDS ORDERED: Heparin 25,000 UNIT/500 ML D5W 25,000 UNIT/500 ML MLS IVC SCH (15:30)
[2016-12-21] MEDS ORDERED: *HR* Ticagrelor 90 MG TABLET PO ONE (16:04)
--- NOTE | 2016-12-21 16:05 | Pre-Sedation Evaluation ---
Pre-sedation evaluation - Pre-sedation checklist Date of procedure: 12/21/16 Procedure: [facility] Recent Vitals: Last Vital Signs Temp 97.5 F L 12/21/16 15:25 Pulse 72 12/21/16 15:25 Resp 16 12/21/16 15:25 BP 97/63 12/21/16 15:25 Pulse Ox 93 12/21/16 15:25 H&P (including ROS) documented in medical record: Yes Previous reaction to sedatives/anesthetics: No Dietary Status: NPO after Midnight Airway Assessment: Patient can open mouth completely, TMJ function normal Dentition: No loose teeth or bridges ASA Classification *see protocol: CLASS II-Mild systemic disease Plan of Care: Pt appropriate candidate for procedure/moderate/conscious sedation , Risks/benefits of procedure/sedation discussed w/ patient/family
--- NOTE | 2016-12-21 16:19 | Cardiology Consult Note ---
Date of Encounter: 12/21/16 Time of Encounter: 16:00 Assessment and Plan (1) NSTEMI (non-ST elevated myocardial infarction) Current Visit: Yes Status: Acute Troponin 0.17, 1.63. No acute ischemic ECG changes noted upon presentation. Patient reports sudden onset of chest tightness/heaviness with radiation to neck /jaw and down bilateral arms this morning at 4:20 AM. Symptoms improved with NTG and resolved with IV morphine. Reports 2-3/10 chest discomfort upon exam. Brilinta 180 mg given. ASA 324mg given in ED. Started on IV heparin gtt. Will start asa, statin, and betablocker. Recommend proceeding with LHC with possible PCI, alternatives, risks, and benefits discussed; she is agreeable to proceed. Echocardiogram ordered. Cardiac rehab consulted. Further recommendations to follow. (2) Tobacco abuse Current Visit: Yes Status: Chronic 0.5 ppd x25+ years. Smoking cessation counseling provided. (3) Renal insufficiency Current Visit: Yes Status: Acute Recommend IV hydration. Continue to monitor kidney function closely after LHC. Discussion w patient/family: The assessment and plan as outlined above was discussed with the patient and/or family members who expressed understanding and agreement. All questions were answered. Thank you for involving us in the care of your patient. Please call with any questions. The patient was discussed and reviewed with Dr. Downs. History of Present Illness Consult date: 12/21/16 Requesting physician: Teja Garrido Consult reason: NSTEMI Chief complaint: Chest pain History of present illness: Ms. Witt is a 61 year old female with PMH significant for tobacco abuse, GERD, and RLS who presented to ED with acute onset of chest pain at 4:20 AM. Discomfort described as heaviness, tightness that radiated across chest, down bilateral arms, to neck and jaw. Pain was improved with SL NTG in the ED and resolved after IV morphine. She reports right shoulder pain for the past several months that is nearly constant, attributes to cervical neck pain. Reports fatigue and activity intolerance for the past 6 months. Prior CV testing includes: TTE 10/19/16: EF 60-65%, mild LVDD, normal RV structure and function, no significant valvular dysfunction, normal wall motion Regadenoson nuclear 10/19/16: perfusion imaging was negative for ischemia or infarct, gated EF=66% Past Med Surg Social Fam HX - Past Medical History Attestation: Yes The following information was validated with the patient. Source: patient Medical history: GERD, other (RLS) Psychiatric history: anxiety, depression - Past Surgical History Surgical History: orthopedic, other (partial knee replacement) - Social History Smoking Status: Current every day smoker Smokeless Tobacco Status: No Alcohol use: none Drug use: none - Family History Father Living Status: Cause of : CVA Hx Family Cardiac Disorders: Yes Mother Living Status: Hx Family Neurologic Disorders: Yes Sister Living Status: Still Living Hx Family Cancer: Yes (breast) Medications and Allergies ClonazePAM [Klonopin] 0.5 - 1 mg PO HS 10/18/16 [History] Dexlansoprazole [Dexilant] 60 mg PO DAILY 10/18/16 [History] Tramadol HCl [Ultram] 50 - 100 mg PO BID 10/18/16 [History] Ibuprofen 800 mg PO Q8H PRN #21 tablet 10/19/16 [Rx] Lidocaine Patch [Lidoderm 5% patch] 1 each TP DAILY PRN #7 adh..patch 10/19/16 [ Rx] Tizanidine HCl [Zanaflex] 2 mg PO TID PRN #15 cap 10/19/16 [Rx] Albuterol Sulfate [Proair Hfa] 2 puff IH Q4H PRN 12/21/16 [History] Allergies iodine Allergy (Verified 11/09/16 11:47) Hives All Systems Review: A 10-system review of systems was performed and is negative for pertinent findings except as documented above in the HPI. - Cardiovascular Cardiovascular: as per HPI Physical Examination Vital Signs, Last 4 Hours Temp Pulse Resp BP Pulse Ox 12/21/16 15:25 97.5 F L 72 16 97/63 93 General: Conversant, Other (pale) Cardiac: Reg Rate and Rhythm, Normal S1 and S2 Lungs: Normal Breath Sounds Neuro: Alert and responsive Abdomen: Soft Skin: No rashes noted on visualized skin Musculoskeletal: No Chest Wall Tenderness Extremities: No Edema, Normal Pulses Results 12/21/16 09:19 12/21/16 09:19 Lab Results 12/21/16 14:53 Troponin I 1.63 H* - Imaging and Cardiology Stress Test: report reviewed Echo: report reviewed - EKG Interpretation EKG results cardiology: personally reviewed Consult Discharge Plan - Plan Referrals: Abdi Levy DO [Primary Care Provider] -
[2016-12-21] MEDS ORDERED: *HR* Heparin 10,000 UNIT/10 ML VIAL ONE (17:04)
[2016-12-21] MEDS ORDERED: Heparin 1,000 UNITS/500 mL NS 500 ML ONE (17:04)
[2016-12-21] MEDS ORDERED: Verapamil 5 MG/2 ML VIAL ONE (17:04)
[2016-12-21] MEDS ORDERED: 0.9 % Sodium Chloride 1,000 ML ONE ×2 (17:04→17:30)
[2016-12-21] MEDS ORDERED: Nitroglycerin 1,000 MCG/10 ML VIAL IV ONE (17:05)
[2016-12-21] MEDS ORDERED: methylPREDNISolone 125 MG/2 ML VIAL ONE (17:30)
[2016-12-21] MEDS ORDERED: *HR* FentaNYL (PF) 100 MCG/2 ML VIAL ONE (17:30)
[2016-12-21] MEDS ORDERED: *HR* Midazolam HCl 2 MG/2 ML VIAL ONE (17:30)
--- NOTE | 2016-12-21 17:41 | Electrocardiograph Report ---
[place] [id number] Test Date: 2016-12-21 Pat Name: Georgina Witt Department: 103 Room: 3B22 Gender: F Run Lead: TB : 1955 Requested By: James Sainz Order Number: [id number] Reading MD: Andi Downs MD Measurements Intervals [place] Rate: 93 P: 46 MN: 125 QRS: 24 QRSD: 97 T: 61 QT: 337 QTc: 387 Interpretive Statements SINUS RHYTHM WITH OCCASIONAL VENTRICULAR PREMATURE COMPLEXES LEFT ATRIAL ENLARGEMENT Electronically Signed On 12-21-2016 17:39:26 EDT by Andi Downs MD
[2016-12-21] MEDS ORDERED: Tirofiban 5 MG/100ML 5 MG/100 ML BAG IV ONE (17:56)
[2016-12-21] MEDS ORDERED: Tirofiban 12.5 MG/250ML 12.5 MG/250 ML BAG IVC SCH (18:15)
--- NOTE | 2016-12-21 18:28 | Invasive Diagnostic Lab Proc ---
Name: Georgina Witt Date of Study: 12/21/2016 Date: 1955 Ht: 66.9in Medical Record#: [id number] Age: 61 Wt: 202.83lb Gender: Female BSA: 2.03 Order #: [id number] BMI: 31.83 Physicians Procedure Physician: Andi Downs MD, [facility] Referring MD: Referring MD: Staff Name Position Time In Bhakti Alejandra RT (R) Scrub 05:34 PM Gena Rodriguez RN Manager Water 05:34 PM Shakira Stewart RT Monitor 05:34 PM Indications Indication Non-Stemi Procedures Performed Procedure L HRT ARTERY/VENTRICLE ANGIO PRQ CARD REVASC IL 1 VSL Pre-Procedure Checklist Informed consent is complete signed and on chart. H\\T\\P is on chart. ID band is on and ID verified with patient. Patient NPO for procedure The procedure was described for the patient and questions were answered. ECG is on chart. Plan of Care Patient will tolerate the procedure without complications. Adequate level of comfort will be maintained. Hemodynamics will remain stable Patient will recover from procedure without complications. Respiratory function will be maintained. Cardiac rhythm will remain stable. Patient temperature will be maintained. Patient and/or family have verbalized understanding of the procedure. Patient Education Chief Complaint/Reason for Test: Cardiac Cath Developmental Category: Geriatric (65+ years) Developmentally Appropriate for Age: Yes Learning Barriers: None Education Needs: Procedure Education Method: Verbal Information Taught: Cardiac Cath Educational Evaluation: Able to repeat information Intravenous Access Time IV Size Location DC'd Fluid/Drip Rate Units RN 05:32 PM 20g 1 1/4" Peripheral-Lock On Arrival Rt Antecubital Allergies No Known Allergies iodine Vital Signs Time BP (mmHg) HR (bpm) O2 Sat. RR (bpm) LOC 05:41 PM / % 4 = Oriented but drowsy 05:43 PM / % 4 = Oriented but drowsy 05:43 PM / % 4 = Oriented but drowsy 05:39 PM 122 / 80 79 100 % 21 05:44 PM 126 / 81 71 100 % 32 05:49 PM 113 / 71 76 99 % 34 05:54 PM 109 / 72 69 96 % 25 05:59 PM 105 / 67 68 96 % 9 06:04 PM 111 / 73 67 96 % 18 06:09 PM 119 / 75 69 99 % 24 Procedural Medications Time Medication Dose Units Method Given By 05:35 PM Solu-medrol 125 mg Intravenous Gena Rodriguez RN 05:38 PM Benadryl 50 mg Intravenous Bhakti Alejandra RT (R) 05:40 PM Oxygen 2 L/min nasal cannula Gena Rodriguez RN 05:46 PM Versed 1 mg Intravenous Gena Rodriguez RN 05:46 PM Fentanyl 25 mcg Intravenous Gena Rodriguez RN 05:46 PM Lidocaine 2% 0.5 ml Subcutaneous Andi Downs MD, FACC 05:47 PM Heparin 2000 units Nitroglycerin 200 mcg Verapamil 2.5 mg Intraarterial Andi Downs MD, FACC 05:50 PM Versed 1 mg Intravenous Gena Rodriguez RN 05:50 PM Fentanyl 25 mcg Intravenous Gena Rodriguez RN 05:58 PM Heparin 1000 units Intravenous Gena Rodriguez RN 05:59 PM Aggrastat Bolus: 46 ml Intravenous Gena Rodriguez RN 06:03 PM Angiomax 0.75mg/kg bolus: 13.6 ml Intravenous Gena Rodriguez RN Dorita Score Preprocedure Postprocedure Activity 2- Moves 4 extremities sustained head lift Activity 2- Moves 4 extremities sustained head lift Circulation 2- SBP +/= 20 points of pre-anesthetic level Circulation 2- SBP +/= 20 points of pre-anesthetic level Consciousness 2- Awake and alert oriented x 3 Consciousness 2- Awake and alert oriented x 3 O2 Saturation 2- Able to maintain O2 satruation of 92% on room air O2 Saturation 2- Able to maintain O2 satruation of 92% on room air Respiratory 2- Able to deep breathe and cough well Respiratory 2- Able to deep breathe and cough well Total Score 10 Total Score 10 Contrast Agent: Isovue Diagnostic Contrast: 96 ml Total Contrast: 96 ml Fluoro Dose: 319 mGy Procedure Log Time Note Enter By 05:33 PM CathStat 05:33 PM Pt arrived to parking lot laborer 2 at 17:33 :34 PM Patient charges- Angio tray pack, Navilyst 3mm J, Pulse Oximetry and ACIST tubing and transducer :34 PM Physician arrived 17:34 05:34 PM Meet and greet completed :34 PM Sign in performed according to hospital policy. :34 PM Procedure start 17:34 [email or web address] 05:34 PM Bhakti Alejandra RT (R) Position: Scrub Time in: 17:34 [email or web address] 05:34 PM Gena Rodriguez RN Position: Manager Water Time in: 17:34 05:34 PM Shakira Stewart RT Position: Monitor Time in: 17:34 dsp 05:35 PM Time: 17:35 Solu-medrol 125 mg Intravenous Given by Gena Rodriguez RN 05:35 PM Case Delayed No [email or web address] 05:38 PM Time: 17:38 Benadryl 50 mg Intravenous Given by Bhakti Alejandra RT (R) 05:38 PM Vitals capture started with the following parameters, Patient=Adult, Interval=5 min, Initial Fuhthmgg=700 mmHg, Deflation Rate=5 mmHg, Cuff placed on Left Arm 05:39 PM Hair removed from procedure site in procedure lab using clippers. Bilateral groin prepped with Chloraprep by Abebe Bardales RN, safety strap applied then patient was draped. Skin intact. 05:39 PM HR=79 bpm, VKAE=583/80 mmhg, SfW1=430.0 %, Resp=21 B/min, Comment=NSR 05:40 PM Time: 17:40 Oxygen on at 2 L/min per nasal cannula by Gena Rodriguez RN desmond 05:40 PM Time: 17:40 Patient comfortable and pain free: Yes 05:41 PM Time: 17:41LOC: 4 = Oriented but drowsy dsp 05:41 PM Clinical Presentation: Non-STEMI 05:43 PM Pressure channel 1 zeroed. 05:43 PM Time: 17:43 Patient comfortable and pain free: Yes 05:43 PM Time: 17:43LOC: 4 = Oriented but drowsy 05:44 PM HR=71 bpm, JYNE=151/81 mmhg, FpE1=688.0 %, Resp=32 B/min, Comment=NSR 05:46 PM Time: 17:46 Versed 1 mg Intravenous Given by Gena Rodriguez RN 05:46 PM Time: 17:46 Fentanyl 25 mcg Intravenous Given by Gena Rodriguez RN 05:46 PM Time out performed according to hospital policy [email or web address] antonio 05:47 PM Time: 17:46 .5 ml Lidocaine 2% to right radial Subcutaneous Given by Andi Downs MD, [facility] [email or web address] 05:47 PM Access obtained by percutaneous puncture. 6Fr 10cm Terumo Glidesheath sheath placed in right Radial artery. [id number] kkall 05:47 PM Time: 17:47 Patient given 2000 units Heparin, 200 mcg Nitroglycerin, and 2.5 mg Verapamil Intraarterial by Andi Downs MD, [facility] [email or web address] 05:48 PM 5Fr FR 4 catheter inserted over the wire DN [email or web address] 05:49 PM RCA angiography performed in multiple views. [email or web address] 05:49 PM HR=76 bpm, GKIC=119/71 mmhg, SpO2=99.0 %, Resp=34 B/min 05:49 PM Catheter removed kkallner 05:49 PM 5Fr FL 4 catheter inserted over the wire DN [email or web address] 05:50 PM Time: 17:50 Versed 1 mg Intravenous Given by Gena Rodriguez RN kkner 05:50 PM Time: 17:50 Fentanyl 25 mcg Intravenous Given by Gena Rodriguez RN kkallner 05:50 PM wire removed' [email or web address] 05:50 PM LCA angiography performed in multiple views. [email or web address] 05:51 PM Recorded Pressure: Ao, HR=73, Condition=Condition 1 (Aorta) Ao 89/67/77 05:52 PM Catheter removed kkallner 05:53 PM 6Fr JR 4 Runway guide catheter was used to cannulate the PCI vessel successfully. reused? No kkallner 05:53 PM Lesion found in Mid LAD. Pre Stenosis: 60 Pre EAMON Flow: [email or web address] 05:53 PM Lesion found in Mid Circumflex. Pre Stenosis: 50 Pre EAMON Flow: [email or web address] 05:54 PM Lesion found in Mid RCA. Pre Stenosis: 90 Pre EAMON Flow: kkallner 05:54 PM wire removed kkallner 05:54 PM Left Main Coronary Artery with 0% stenosis kkallner 05:54 PM Mid/Distal Left Anterior Descending Coronary Artery and diagonal branches with 60% stenosis. If graft is supplying this area, 0 % stenosis kkallner 05:54 PM Circumflex, Obtuse Marginal, Left Posterior Descending, and Left Posterolateral Coronary Arteries with 50 % stenosis. If graft is supplying this area, 0 % stenosis kkallner 05:54 PM Right Coronary, Right Posterior Descending Arteries with Right Posterolateral and Acute Marginal branches with 90 % stenosis. If graft is supplying this area, 0 % stenosis kkallner 05:54 PM Ramus with 0% stenosis. If graft is supplying this area, 0 % stenosis kkallner 05:54 PM HR=69 bpm, LIVP=650/72 mmhg, SpO2=96.0 %, Resp=25 B/min 05:54 PM Coronary Dominance: right kkallner 05:56 PM .014 PT Graphix 182cm guide wire across target lesion- successful. reused? No kk 05:56 PM Inflation device was opened. kk 05:56 PM 2.0 mm x 8 mm Emerge Monorail balloon across target lesion- successful. reused? No 05:57 PM Balloon inflated @ 8 alexis for 9 seconds kk 05:58 PM Time: 17:58 Heparin 1000 units Intravenous Given by Gena Rodriguez RN 05:59 PM 3.0mm x 16mm Synergy drug-eluting stent across target lesion- successful Lot #[id number] kk 05:59 PM Time: 17:43LOC: 4 = Oriented but drowsy kk 05:59 PM Time: 17:43 Patient comfortable and pain free: Yes kkall 05:59 PM HR=68 bpm, KGZY=583/67 mmhg, SpO2=96.0 %, Resp=9 B/min 05:59 PM Time: 17:59 Aggrastat Bolus: 46 ml Intravenous Given by Gena Rodriguez RN Hurtado pump kk 06:00 PM Stent deployed @ 20 alexis for 25 seconds kk 06:01 PM Stent delivery system removed intact. kk 06:03 PM Balloon inflated @ 16 alexis for 16 seconds kk 06:03 PM 3.5 mm x 15mm NC Emerge balloon across target lesion- successful. reused? No 06:03 PM Time: 18:03 Angiomax 0.75mg/kg bolus: 13.6 ml Intravenous Given by Gena Rodriguez RN Hurtado pump kkner 06:04 PM Balloon inflated @ 20 alexis for 11 seconds kkallner 06:04 PM HR=67 bpm, POHL=403/73 mmhg, SpO2=96.0 %, Resp=18 B/min 06:04 PM wire and ballom removed kk 06:05 PM Catheter removed : PM 5Fr Pigtail catheter inserted over the wire [facility] : PM Catheter selectively placed in left ventricle kk: PM Bolus angiogram of left Ventricle complete: 10 ml/sec for a total of 20 mls : PM Pressure channel 1 zeroed. 06:06 PM Recorded Pressure: LV, HR=79, Condition=Condition 1 (Left Ventricle) LV 112/36/42 06:07 PM Recorded Pressure: LV, Ao, HR=75, Condition=Condition 1 (Left Ventricle) LV 120/49/52, (Aorta) Ao 133/77/104 06:07 PM wire and catheter removed 06:08 PM Proximal Left Anterior Descending Coronary Artery with 0% stenosis. If graft is supplying this territory, 0 % stenosis. kk 06:09 PM Procedure completed at 18:09 kk 06:09 PM HR=69 bpm, TLXA=684/75 mmhg, SpO2=99 %, Resp=24 B/min 06:10 PM Sign out completed: Radiation Dose 319.11 mGy Fluoro Time: 4.1 Isovue 370 - 200ml contrast 96 ml given by Andi Downs MD, [facility]. Complications: NoneCardiac Rehab Consult needed: YesConfirmed administered medications: Yes 06:10 PM Isovue 370 - 200ml,1 Bottle(s) used. kkall 06:10 PM 11 ml air in Vasc Band. kkall 06:10 PM Post ECG NSR kkall 06:10 PM Post Blood Pressure 119/75 kkallner 06:10 PM 18:10 Post Pulses Rt Radial 2+ 06:10 PM Information taught Cardiac Cath and Vasc Band kk 06:10 PM Education needs Procedure, Plan of Care, and Responsibilities of Patient in Care kkall 06:10 PM Learning barriers :None [email or web address] 06:10 PM Education Methods Verbal kkall 06:11 PM Education evaluation Able to repeat information kkall 06:11 PM Site status No bleeding/hematoma - Rt Wrist as reported by Bhakti Alejandra RT (R) at 18:11 [email or web address] 06:11 PM Plavix, Effient or Brilinta given No kkallner 06:11 PM Delay to floor No [email or web address] 06:11 PM Patient out of room: 18:11 kkallner 06:11 PM Family placed in consult room. [email or web address] 06:11 PM Complications: None kkallner 06:12 PM Fluoro Time: 4.1 kkallner 06:12 PM Isovue 370 - 200ml contrast 96 ml given by Andi Downs MD, FACC. [email or web address] 06:12 PM Radiation Dose 319.11 mGy kkallner 06:20 PM Report given to 3B RN Pt taken to 3B Room #22. 18:20 [email or web address] Complications Complication None None Hemodynamics Pressures Site Systolic/A Wave Diastolic/V Wave Mean AO 89 67 77 LV 112 36 42 LV 120 49 52 AO 133 77 104 Post Procedure Information Blood Pressure: 119/75 mmHg Rhythm: NSR Post procedural instructions were given Closure Device Time Device Success/Fail 12/21/2016 6:12:00 PM Mechanical Compression Successful Site Checks Time Location Status Staff Sheath In? Note 06:11 PM Rt Wrist No bleeding/hematoma Bhakti Alejandra RT (R) Pulses Time Site Pre-Procedure Post-Procedure Note 12/21/2016 5:41:00 PM Bilateral radial 2+ 12/21/2016 5:41:00 PM Bilateral DP \\T\\ PT 1+ 6:10:00 PM Rt Radial 2+ Updated by Shakira Stewart, RT (R) on 12/21/2016 6:23:14 PM electronically signed on 12/21/2016 6:24:07 PM with status of Final
--- NOTE | 2016-12-21 18:36 | Invasive Diagnostic Lab ---
Name: Georgina Witt Date of Study: 12/21/2016 Date: 1955 Ht: 170.0 cm /66.9 in Medical Record#: [id number] Age: 61 Wt: 92. kg / 202.83 lb Account/Order#: [id number] Gender: Female BSA: 2.03 Order #: [id number] Fluoro Dose: 319 mGy BMI: 31.83 Procedure Physician: Andi Downs MD, FACC Referring MD: Referring MD: Procedures Performed: LEFT HEART CATH PCI of Acute AR Stent Single Major vessel - TABITHA Indications: Non-Stemi with ongoing chest pain despite medical therapy, morphine and NTG with rising troponin brought down emergently Saturday night Impressions: There is severe one vessel coronary artery disease. The left ventricle is normal and has normal contractility EF 60% Recommendations: Optimal medical therapy of patient's disease. Aggressive risk factor modification. History/Risk Factors: Non Stemi Current/Recent Smoker Procedure Access obtained in the right Radial artery by percutaneous puncture Complications: None, None Contrast: Isovue 96ml Closure Device: Mechanical Compression Hemodynamics: Pressures Site Systolic/ A Wave Diastolic/ V Wave End Diastolic/ Mean HR AO 89 67 77 73 LV 112 36 42 79 LV 120 49 52 76 AO 133 77 104 74 LV Ventriculography Ejection Method: LV Gram Ejection Fraction: 60% Wall Motion: MATTHEWS Anterobasal Normal Anterolateral Normal Apical: Normal Inferoapical Normal Inferobasal Normal Coronary Dominance: right Lesion Findings/Interventions * Left Main Coronary Artery The LMCA is angiographically free of disease. * Left Anterior Descending There is a 60% stenosis in the Mid LAD. Proximal LAD 40% stenosis. * Circumflex There is a 50% stenosis in the Mid Circumflex. * Right Coronary Artery There is a 16 mm long, subtotal occluded 90% stenosis in the Mid RCA. An intervention was performed on the Mid RCA with a final stenosis of 0%. There were no lesion complications. Moderate disease in the distal RCA/PDA/PLB bifurcation. Interventional Device(s) Vessel Segment Type Name Diameter (mm) Length (mm) Mid LAD Balloon Emerge Monorail 2 8 Mid LAD Drug Eluting Stent Synergy 3 16 Mid LAD Balloon NC Emerge 3.5 15 Updated by RT Maxine (R) on 12/21/2016 6:21:50 PM Andi Downs MD, FACC electronically signed on 12/21/2016 6:30:37 PM with status of Final
[2016-12-21] MEDS ORDERED: traMADol 50 MG TABLET PO PRN (21:43)
[2016-12-21] MEDS ORDERED: clonazePAM 1 MG TABLET PO SCH (21:45)
[2016-12-21] MEDS: *HR* Ticagrelor 90 MG TABLET PO SCH (22:23)
[2016-12-22 03:57] LABS: Basophils % 0.3 %; Hematocrit 40.6 % (35.3-44.9); Hemoglobin 13.2 g/dL (11.5-15.4); Immature Granulocytes % 0.6 % (0-4); Lymphocytes # 0.5 K/mcL (0.6-4.6); Mean Corpuscular HGB Conc 32.5 g/dL (31.6-35.5); Mean Corpuscular Hemoglobin 29.7 pg (28.0-33.3); Mean Corpuscular Volume 91.4 fL (83.0-100.0); Monocytes # 0.1 K/mcL (0.0-1.3); Monocytes % 1.3 %; Neutrophils # 6.4 K/mcL (1.6-8.9); Platelet Count 189 K/mcL (140-400); Red Blood Count 4.44 M/mcL (3.82-4.97); Segmented Neutrophils % 90.8 %
[2016-12-22 04:10] LABS: Calcium 9.3 mg/dL (8.6-10.8); Potassium 4.2 mEq/L (3.5-4.5)
[2016-12-22] MEDS ORDERED: *HR* Enoxaparin 40 MG/0.4 ML SYRINGE SQ SCH (06:00)
[2016-12-22] MEDS: *HR* Ticagrelor 90 MG TABLET PO SCH (07:37)
--- NOTE | 2016-12-22 07:53 | ECHO - Doppler Report ---
Limited Echocardiogram Name: Georgina Witt Date of Study: 12/21/2016 Date: 1955 Ht: 67.0 in Medical Record#: [id number] Age: 61 Wt: 204.0 lb Gender: Female BSA: 2.04 Order #: [id number] Location: [facility] Room #: 3B22 Reading Physician: Alessandro Lake MD, [facility] Business Partner: Grace Rodriguez RDCS Ordering Physician: Rikki Garrido MD Primary Physician: Abdi Levy DO Indications: NSTEMI Impressions: Normal LV systolic function, LVEF 55%. Normal right ventricular size and function. Mildly dilated left atrium. Mildly dilated right atrium. Valvular function was not assessed on this limited study. Left Ventricular Wall Motion: Rest Echo Findings All wall segments showed normal motion. Findings: Study Quality * Technically adequate exam. ECG Findings * Normal sinus rhythm. Left Ventricle * Normal LV systolic function, LVEF 55%. * Normal LV chamber size and wall thickness. Right Ventricle * Normal right ventricular size and function. Left Atrium * Mildly dilated left atrium. Right Atrium * Mildly dilated right atrium. Aorta * Normally sized aortic root. Pericardium * There is no pericardial effusion present. IVC * Mildly dilated with normal inspiratory collapse. History History of Smoking Years 20 Packs 1 Family History of CAD 10/19/2016 a Previous Echo was performed. Measurements: BP: 97/ 63 2D Normal Values RVIDd: 3.40 cm IVSd: .90 cm 0.6 - 1.0 cm LVIDd: 5.40 cm 3.7 - 5.6 cm LVPWd: .90 cm 0.6 - 1.1 cm LVIDs: 3.60 cm 1.5 - 3.6 cm AO: 3.00 cm < 4.0 cm LA volume: 73 Updated by Alessandro Lake MD, [facility] on 12/22/2016 7:47:12 AM electronically signed on 12/22/2016 7:47:42 AM with status of Final Wall Motion [place]: 1=Normal, 2=Hypokinesis, 3=Akinesis, 4=Dyskinesis, 5=Aneurysmal, 6=Hyperkinetic, X=Not Visualized (Blank)=Missing
[2016-12-22] MEDS ORDERED: Aspirin Enteric Coated 81 MG Tablet PO SCH (09:00)
[2016-12-22 11:15] VITALS: BP 111/71
--- NOTE | 2016-12-22 11:31 | Cardiology Progress Note ---
Date of Encounter: 12/22/16 Time of Encounter: 11:29 Assessment and Plan (1) NSTEMI (non-ST elevated myocardial infarction) Current Visit: Yes Status: Acute Troponin 0.17, 1.63. No acute ischemic ECG changes noted upon presentation. S/P LHC yesterday with PCI to RCA. 50-60% stenosis in mid LAD and mid LCx. EF 60 % on LHC, 55% on echo. Right radial access site healing well. Mild ecchymosis, no bleeding or hematoma. DAPT (ASA and Brilinta) uninterrupted x 1 year. Pt verbalizes understanding. Continue BB and Statin. No recurrent chest pain. Lifestyle modification discussed. Cardiology signing off. Reconsult PRN. Will coordinate outpt follow-up within 1 week. (2) Tobacco abuse Current Visit: Yes Status: Chronic 0.5 ppd x25+ years. Smoking cessation counseling provided. Plan per primary team is for Chantix. (3) Renal insufficiency Current Visit: Yes Status: Acute Stable s/p LHC. Discussion w patient/family: The assessment and plan as outlined above was discussed with the patient and/or family members who expressed understanding and agreement. All questions were answered. Thank you for involving us in the care of your patient. Please call with any questions. I will discuss all the above with Dr. Lake and make changes as necessary. Subjective Principal diagnosis: NSTEMI Interval history: S/P LHC yesterday--Severe 1 vessel CAD. Successful TABITHA to RCA. 50-60% stenosis in mid LAD and mid LCx. EF 60% on LHC. Echo resulted--EF 55%. Pt denies any acute complaints this AM, denies chest pain or dyspnea. Objective Vital Signs, Last 4 Hours Temp Pulse Resp BP Pulse Ox 12/22/16 11:14 97.5 F L 68 16 111/71 95 12/22/16 07:46 92 Vital Signs Temp Pulse Resp BP Pulse Ox 12/22/16 11:14 97.5 F L 68 16 111/71 95 12/22/16 07:46 92 12/22/16 07:24 98.0 F 66 16 108/72 92 12/22/16 03:24 97.4 F L 63 12 120/80 95 12/21/16 23:27 98.0 F 70 16 106/70 93 12/21/16 20:21 98 F 73 16 110/72 96 12/21/16 19:50 97.9 F 73 18 115/85 96 12/21/16 19:35 98 F 68 16 118/77 98 12/21/16 19:20 98 F 69 16 108/68 97 12/21/16 19:05 98.1 F 67 16 108/75 97 12/21/16 18:50 98 F 69 16 109/73 97 12/21/16 15:25 97.5 F L 72 16 97/63 93 Intake and Output 12/21/16 12/22/16 12/22/16 23:59 07:59 15:59 Intake Total 240 / 240 Balance 240 / 240 Intake: Oral 240 / 240 Other: Meal Breakfast Percent of Meal Consumed 100% # Voids 3 Weight 100.97 kg Patient Weight 12/22/16 23:59 Weight 100.97 kg General: Conversant, No Apparent Distress HEENT: Atraumatic, Normocephaly, Mucus Membranes Moist Neck: No JVD, Normal carotid pulses Cardiac: Reg Rate and Rhythm, Normal S1 and S2, No Murmur Lungs: Normal Breath Sounds, No Wheeze, Rales, Rhonchi Neuro: Alert and responsive, No focal deficits noted Abdomen: Soft, Non-Tender Skin: Other (right radial access site healing well. Minimal amount of ecchymosis. No bleeding or hematoma.) Musculoskeletal: No Chest Wall Tenderness Extremities: No Clubbing, No Cyanosis, No Edema, Normal Pulses Results 12/22/16 03:03 12/22/16 03:03 Lab Results 12/21/16 12/21/16 12/21/16 14:53 22:04 22:04 WBC Hgb Hct Plt Count APTT 36.5 H D Sodium Potassium Chloride Carbon Dioxide BUN Creatinine Glucose Calcium Troponin I 1.63 H* 4.22 H* 12/22/16 12/22/16 03:03 03:03 WBC 7.0 Hgb 13.2 Hct 40.6 Plt Count 189 APTT Sodium 141 Potassium 4.2 Chloride 114 H Carbon Dioxide 20 BUN 21 H Creatinine 1.37 H Glucose 199 H Calcium 9.3 Troponin I Short CBC 12/22/16 Range/Units 03:03 WBC 7.0 (4.3-11.1) K/mcL Hgb 13.2 (11.5-15.4) g/dL Hct 40.6 (35.3-44.9) % Plt Count 189 (140-400) K/mcL Neutrophils # 6.4 (1.6-8.9) K/mcL BMP 12/22/16 Range/Units 03:03 Sodium 141 (136-145) mEq/L Potassium 4.2 (3.5-4.5) mEq/L Chloride 114 H (98-109) mEq/L Carbon Dioxide 20 (19-29) mEq/L BUN 21 H (7-20) mg/dL Creatinine 1.37 H (0.57-1.11) mg/dL Glucose 199 H (70-99) mg/dL Calcium 9.3 (8.6-10.8) mg/dL Cardiac Enzymes 12/21/16 12/21/16 Range/Units 22:04 14:53 Troponin I 4.22 H* 1.63 H* (0-0.03) ng/mL Active Medications Aspirin (Aspirin Ec) 81 mg PO DAILY BRETT Stop: 06/23/17 09:01 Last Admin: 12/22/16 07:38 Dose: 81 mg Atorvastatin Calcium (Lipitor) 40 mg PO HS BRETT Stop: 06/22/17 21:01 Last Admin: 12/21/16 22:23 Dose: 40 mg Clonazepam (Klonopin) 1 mg PO HS [facility] Stop: 06/22/17 21:46 Last Admin: 12/21/16 22:23 Dose: 1 mg Heparin Sodium (Porcine) (Heparin) 6,500 unit 70 unit/kg (6500 unit) IVP Q6HR PRN PRN Reason: SEE COMMENTS Stop: 06/22/17 15:30 Heparin Sodium (Porcine) (Heparin) 3,200 unit 35 unit/kg (3200 unit) IVP Q6H PRN PRN Reason: SEE COMMENTS Stop: 06/22/17 15:30 Metoprolol Tartrate (Lopressor) 25 mg PO BID [facility] Stop: 06/22/17 21:01 Last Admin: 12/22/16 07:37 Dose: 25 mg Naloxone HCl (Narcan) 0.4 mg IVP Q2MIN PRN PRN Reason: Opioid Reversal Stop: 06/22/17 12:48 Nitroglycerin (Nitroglycerin) 0.4 mg SL Q5MIN PRN PRN Reason: Chest Pain Stop: 06/22/17 09:11 Last Admin: 12/21/16 09:43 Dose: 0.4 mg Omeprazole (Prilosec) 40 mg PO DAILY@0630 BRETT PRN Reason: Protocol Stop: 06/22/17 14:56 Last Admin: 12/22/16 06:02 Dose: 40 mg Ondansetron HCl (Zofran) 4 mg IVP Q6HR PRN; Protocol PRN Reason: Nausea Stop: 06/22/17 13:47 Last Admin: 12/21/16 14:59 Dose: 4 mg Ticagrelor (Brilinta) 90 mg PO BID BRETT Stop: 06/22/17 21:01 Last Admin: 12/22/16 07:37 Dose: 90 mg Tizanidine HCl (Zanaflex) 2 mg PO TID PRN PRN Reason: Muscle Spasm Tramadol HCl (Ultram) 100 mg PO BID PRN PRN Reason: Pain Stop: 06/22/17 21:44 Last Admin: 12/21/16 22:23 Dose: 100 mg - Imaging and Cardiology Echo: report reviewed Cardiac cath: report reviewed - EKG Interpretation EKG results cardiology: other (24 hour tele AVG HR 69, SR.) Consult Discharge Plan - Plan Additional Instructions: RISK FACTORS: STOP SMOKING: If you smoke, STOP. Smoking or tobacco use significantly increases your risk of heart disease because nicotine causes the arteries to narrow or constrict. It also causes fats to stick to the artery. Your chances of having a heart attack are greatly increased if you continue to smoke. For more information, call the education line for smoking cessation 6-748-[id number] EAT A LOW FAT/CHOLESTEROL/SODIUM DIET: This diet may help reduce your chances of having a heart attack. LIFTING: With affected extremity: Avoid bending, pushing off and lifting more than 2 pounds for 24 hours The following 48 hours, avoid lifting anything more than 5 pounds Avoid strenuous activity or repetitive motions ACTIVITY: You may walk or climb stairs as tolerated You can resume sexual activity as tolerated In general, you are encouraged to engage in a minimum of 30 minutes or more of moderate intensity physical activity, such as brisk walking, daily or at least 3 -4 times weekly BATHING Do not submerge the site into water (bath tub, hot tub, swimming pool, dishes) for 1 week. This can be a source for infection into the blood stream. You may shower after 24 hours SITE CARE: After 24 hours, you may remove the dressing and leave the site open to air. Keep the site clean and dry. Clean gently and pat dry. You can expect bruising and tenderness that gradually resolve within a week or two. Return to work as instructed per your physician Resume driving as instructed per physician Keep all scheduled follow up appointments Resume medications as instructed IMPORTANT: If prescribed a Platelet Aggregation Inhibitor such as, Plavix, Brilinta or Effient: Duration of therapy is minimum one year These medications are often used in combination with Aspirin in prevention of future heart attacks Never discontinue unless consult with your [facility] STROKE (CVA) Risk factors for a stroke are: Age, cigarette smoking, diabetes, excessive alcohol consumption, family history, high blood pressure, overweight, physical inactivity, prior stroke, heart attack, diagnosis of carotid artery stenosis or other artery disease. Warning signs: Sudden numbness or weakness of the face, arm or leg; especially on one side of the body, sudden confusion, trouble speaking or understanding, sudden trouble seeing in one or both eyes, sudden trouble walking, dizziness, loss of balance or coordination, sudden severe headache with no cause. Call 911 or go to the Emergency Room. CONGESTIVE HEART FAILURE: If you have been diagnosed with Congestive Heart Failure (CHF) and your symptoms return, make an appointment with your physician Weigh yourself daily. Notify your physician if you have a weight gain of two or more pounds in one day or five or more pounds in one week. If you experience any difficulty breathing, please call 911 BLEEDING: Although the risk of bleeding is minimal, it can happen. If you have any bleeding from the site, apply firm pressure above the puncture site for 10-15 minutes. If the bleeding does not stop, continue manual pressure and call 911 Contact [facility] ( ) if: You develop a fever greater than 101 degrees Fahrenheit Your site becomes reddened or has any drainage You have an increase in pain or burning at the site or if a large knot forms at the site. If you experience chest pain, shortness of breath, dizziness, or extreme tiredness, stop the activity and rest. Please notify [facility] office if you experience any of these symptoms and they are not relieved by rest please call 911! Referrals: Abdi Levy, [Primary Care Provider] -
--- NOTE | 2016-12-22 11:44 | Discharge Summary ---
Date of Encounter: 12/22/16 Time of Encounter: 09:00 - Discharge Diagnosis (1) NSTEMI (non-ST elevated myocardial infarction) Priority: Primary Status: Acute Comments: Patient presented to the emergency department yesterday morning about 9 AM after chest pain awakened her from sleep. Onset about 4:20 AM. She described neck heaviness and pressure, upper chest pressure, midsternal pressure with radiation into her axilla and down both arms. She said it was constant and was not getting any better. She reports diaphoresis, and she still diaphoretic now. She denies any nausea or shortness of breath. She was seen at her primary care doctor on Saturday and treated for bronchitis. She is a smoker she smokes 1/2-1 pack per day. Patient's troponin elevated from 0.17 to 1.63. Patient had an echocardiogram yesterday that shows normal systolic function with an LVEF 55%. Normal right ventricular size and function, mildly dilated left and right atria. She was taken to the [facility] and it showed left main is free of disease, LAD 60% stenosis in mid LAD 40% and proximal. There is a 50% stenosis in the midcircumflex, a 16 mm long subtotal occluded 90% stenosis and mid RCA drug-eluting stent was placed in the mid RCA and final stenosis 0%. There is moderate disease in the distal RCA, PDA, PLB bifurcation. Patient has no pulmonary edema, S1-S2, regular rate and rhythm, +2 peripheral pulses in upper and lower extremities. Patient was seen by cardiology this morning and cleared for discharge. She will go home on Brillinta, aspirin, statin, and beta sujata. She is pain-free at this time and says that she feels better than she has in a very long time. She is to follow-up with cardiology outpatient. (2) Chest pain Priority: Secondary Status: Resolved Comments: Pt is pain free this a.m after LHC and TABITHA placement. Qualifiers: Chest pain type: chest pain due to myocardial ischemia Ischemic chest pain type: unspecified angina pectoris type Qualified Code(s): I20.9 - Angina pectoris, unspecified (3) [place] (acute kidney injury) Priority: Secondary Status: Acute Comments: Serum creatinine is elevated today at 1.37. His only mildly elevated from level at admission yesterday, 1.31. Patient has had an elevated serum creatinine since October of this year. Increase is most likely due to cardiac catheter yesterday and contrast used. Patient has discussed hydration for the next few days. She will need to follow-up with her primary care physician. (4) Tobacco abuse Priority: Secondary Status: Chronic Comments: Patient is a 1-1 pack per day smoker for greater than 25 years. We discussed smoking cessation and other lifestyle changes. She has agreed to a Chantix prescription. We discussed proper use. (5) DVT prophylaxis Priority: Secondary Status: Acute Comments: Patient was placed on a heparin drip, she is also given Brillinta, and aspirin prior to going to [facility]. She will continue Proventil at home. - Discharge Medications Prescriptions: Nitroglycerin 0.4 mg SL Q5MIN PRN #5 tab.subl PRN Reason: Chest Pain Aspirin Enteric Coated [Aspirin EC] 81 mg PO DAILY #30 tablet. Atorvastatin [Lipitor] 40 mg PO HS #30 tablet Metoprolol [Lopressor] 25 mg PO BID #60 tablet Ticagrelor [Brilinta] 90 mg PO BID #60 tablet Varenicline Tartrate [Chantix] 1 each PO DAILY #1 tab.ds.pk Home Medications: ClonazePAM [Klonopin] 0.5 - 1 mg PO HS 10/18/16 [History] Dexlansoprazole [Dexilant] 60 mg PO DAILY 10/18/16 [History] Tramadol HCl [Ultram] 50 - 100 mg PO BID 10/18/16 [History] Ibuprofen 800 mg PO Q8H PRN #21 tablet 10/19/16 [Rx] Lidocaine Patch [Lidoderm 5% patch] 1 each TP DAILY PRN #7 adh..patch 10/19/16 [ Rx] Tizanidine HCl [Zanaflex] 2 mg PO TID PRN #15 cap 10/19/16 [Rx] Albuterol Sulfate [Proair Hfa] 2 puff IH Q4H PRN 12/21/16 [History] Aspirin Enteric Coated [Aspirin EC] 81 mg PO DAILY #30 tablet. 12/22/16 [Rx] Atorvastatin [Lipitor] 40 mg PO HS #30 tablet 12/22/16 [Rx] Metoprolol [Lopressor] 25 mg PO BID #60 tablet 12/22/16 [Rx] Nitroglycerin 0.4 mg SL Q5MIN PRN #5 tab.subl 12/22/16 [Rx] Ticagrelor [Brilinta] 90 mg PO BID #60 tablet 12/22/16 [Rx] Varenicline Tartrate [Chantix] 1 each PO DAILY #1 tab.ds.pk 12/22/16 [Rx] Allergies/Adverse Reactions: Allergies iodine Allergy (Verified 11/09/16 11:47) Hives Procedures/tests Complete & Pending: Procedures Performed prior 72 hours Category Date Time Status CL Cardiac Catheterization [CL] Routine [facility] 12/21/16 16:17 Completed ECG 12 lead ECG [ECG] Routine Y 12/21/16 18:19 Ordered EV limited echocardiogram Routine Y 12/21/16 15:31 Completed Date of admission: 12/21/16 10:25 Primary care physician: Abdi Levy DO Consults: 12/21/16 15:42 Consult to Cardiology [CONS] Routine Comment: Consulting Provider: Cardiology Eve Reason for Consult: please evaluate for chest pain and uptrending trop in this patient. thank you Call Completed: Yes 12/21/16 16:21 Consult to Cardiac Rehabilitation-Phase1 [CONS] Routine Comment: Reason for Consult: NSTEMI Call Completed: No Discharging clinician: Radha Sandoval Anticipated date of discharge: 12/22/16 - Patient Status Disposition: Home, Self-Care Condition: Good Functional capacity at discharge: independent ambulation Overall status at discharge: patient is progressing back to baseline - Discharge Instructions Follow Up With: Abdi Levy DO [Primary Care Provider] - Additional Instructions: Take your medications as directed. Start your new prescriptions today. Follow up with cardiology in the office as scheduled. Stop smoking on Day 7 of Chantix. Return to the ED as needed for any other problems or concerns or if your pain returns. - Diet and Activity Activity: as per the cardiac rehab, increase activity as tolerated Diet: low fat, low cholesterol, low salt diet Hospital course: Ms. Witt is a 61 year old female who has a past medical history of GERD and she is a smoker. She presented to the emergency room yesterday morning at about 9:00 reporting diffuse neck pain, upper chest pain, midsternal chest pain that radiated down both arms and into bilateral axilla. She describes it as a heaviness or pressure. She knew that she needed to come to the emergency room so she took a shower and states that she was so fatigued after her shower that she did not think she was given by mouth to finish getting dressed. She says the pressure was constant and it caused her to be diaphoretic. She denies any nausea. She says she is still diaphoretic today. She also states that she feels considerably better than she has a long time. Echocardiogram yesterday showed normal systolic function with an LVEF of 55%. Normal right ventricular size and function, mildly dilated left and right atria. Troponins were 0.17 and then 1.63. Left main is free of disease. She has 60% stenosis and mid LAD and 40 in proximal LAD. 50% stenosis in mid circumflex. In her RCA was a 16 mm long subtotal occluded 90% stenosis of the mid RCA. A TABITHA was inserted in the mid RCA with a final stenosis 0%. Patient has been seen by cardiology today, as well. She is going to follow-up outpatient in the office. I sent home prescriptions for Brillinta, aspirin, statin, and her beta sujata. We had a lengthy discussion lasting about 5 minutes regarding smoking cessation and lifestyle changes. She has agreed to a Chantix prescription and we discussed after she is cleared to increasing her physical activity slightly to include walking daily and discussed diet modifications as well. Patient is stable for discharge. - Time Spent with Patient Total time spent providing and/or coordinating discharge services: - Constitutional Vitals: Temp Pulse Resp BP Pulse Ox 97.5 F L 68 16 111/71 95 12/22/16 11:14 12/22/16 11:14 12/22/16 11:14 12/22/16 11:14 12/22/16 11:14 General appearance: Present: cooperative, A&O X 3, pleasant, no acute distress, answers questions appropriately - Head Head exam: Present: normal inspection - Eye Eye exam: Present: normal appearance, conjuntiva pink - ENT ENT exam: Present: mucous membranes moist, normal exam, normal external ear exam - Neck Neck exam general surgery: Present: normal inspection. Absent: lymphadenopathy , tenderness - Respiratory Respiratory exam: Absent: chest wall tenderness, respiratory distress, rhonchi, stridor, wheezes - Cardiovascular Cardiovascular exam: Present: RRR, +S1, +S2. Absent: diastolic murmur, systolic murmur - GI/Abdominal GI/Abdominal exam: Present: normal bowel sounds, soft. Absent: hepatomegaly, tenderness - Extremities Exam Extremities exam: Present: normal inspection, warm, radial pulses palpable and symetrical. Absent: mottling, pedal edema, tenderness - Neurological Exam Neurological exam: Present: alert, oriented X3, no focal deficits. Absent: pronater drift, facial droop
== END 2016-12-22 13:37 | disposition home or self-care (01) ==
LOC: 3BNU 08:58 → EMEROO 08:58 → 3BNU 10:40
PROVIDERS: ADMIT Internal Medicine; ATTEND Registered Nurse

== ENCOUNTER 2017-07-25 07:39 | Observation (INO) ==
[2017-07-25] MEDS ORDERED: Aspirin 81 MG TAB.CHEW PO ONE (07:46)
--- NOTE | 2017-07-25 07:49 | Emergency Department Note ---
Disposition Clinical Impression: Chest pain Qualifiers: Chest pain type: unspecified Qualified Code(s): R07.9 - Chest pain, unspecified Disposition: Admitted As Inpatient Condition: Fair Referrals: NONE,PCP [Non-Partnered Physician] - Forms: ED Satisfaction Letter Time of Disposition: 09:09 Chest Pain HPI - General Chief Complaint: ED Chest Pain Stated Complaint: chest pain, back pain, SOB Time Seen by Provider: 07/25/17 07:44 Source: patient Mode of arrival: ambulatory Limitations: no limitations Vital Signs Reviewed: Yes Nursing Notes Reviewed: Yes - History of Present Illness HPI Narrative: 62-year-old who is status post stent placement couple months ago who comes in complaining of chest pain and started earlier today. Says the pain is similar in character severity onset previous chest pain that required stenting. Pt complaint: chest pain Onset (ago): Just [employer] Duration: constant Onset: during rest Pain Location: substernal, left chest Severity: moderate, severe Quality: tightness, aching, heaviness Pain Radiation: none Improves with: nothing Worsens with: nothing Associated symptoms: Denies: nausea, vomiting Treatments prior to arrival chest pain: none - Related Data Home Medications Medication Instructions Recorded Confirmed Dexlansoprazole [Dexilant] 60 mg PO DAILY 10/18/16 12/21/16 Tramadol HCl [Ultram] 50 - 100 mg PO BID 10/18/16 12/21/16 clonazePAM [Klonopin] 0.5 - 1 mg PO HS 10/18/16 12/21/16 Albuterol Sulfate [Proair Hfa] 2 puff IH Q4H PRN 12/21/16 12/21/16 Previous Rx's Medication Instructions Recorded Ibuprofen 800 mg PO Q8H PRN #21 tablet 10/19/16 Lidocaine Patch [Lidoderm 5% patch] 1 each TP DAILY PRN #7 adh..patch 10/19/16 Tizanidine HCl [Zanaflex] 2 mg PO TID PRN #15 cap 10/19/16 Aspirin Enteric Coated [Aspirin EC] 81 mg PO DAILY #30 tablet.dr 12/22/16 Atorvastatin [Lipitor] 40 mg PO HS #30 tablet 12/22/16 Metoprolol [Lopressor] 25 mg PO BID #60 tablet 12/22/16 Nitroglycerin 0.4 mg SL Q5MIN PRN #5 tab.subl 12/22/16 Ticagrelor [Brilinta] 90 mg PO BID #60 tablet 12/22/16 Varenicline Tartrate [Chantix] 1 each PO DAILY #1 tab.ds.pk 12/22/16 Allergies Allergy/AdvReac Type Severity Reaction Status Date / Time iodine Allergy Hives Verified 11/09/16 11:47 All systems ED: reviewed and negative except as stated. Constitutional: Denies: fever, chills, weakness, weight change Eyes: Denies: eye pain, eye discharge, vision change ENT ED: Denies: ear pain, throat pain, dental pain, hearing loss, epistaxis, congestion, dysphagia Cardiovascular: Denies: chest pain, palpitations, dyspnea on exertion, edema, syncope Respiratory: Denies: cough, dyspnea, wheezes, hemoptysis, stridor Gastrointestinal: Denies: abdominal pain, nausea, vomiting, diarrhea, constipation, hematemesis, melena, hematochezia Genitourinary: Denies: dysuria, frequency, hematuria, discharge Musculoskeletal: Denies: back pain, neck pain, arthralgia, myalgia Integumentary: Denies: rash, abrasion, lesions Neurological: Denies: headache, weakness, numbness, paresthesias, confusion, abnormal gait, vertigo Psychiatric: Denies: anxiety, depression, suicidal thoughts, homicidal thoughts , auditory hallucinations, visual hallucinations Endocrine: Denies: fatigue Hematological/Lymphatic: Denies: easy bleeding, easy bruising Allergic/Immunologic: Denies: facial swelling, urticaria Chest Pain PMH - Past Medical History Medical history: Reports: GERD, other (RLS) Surgical history: Reports: orthopedic, other (partial knee replacement) Psychiatric history: Reports: anxiety, depression - Social History Smoking Status: Current every day smoker Alcohol use: Reports: none Drug use: Reports: none Physical Exam - General Limitations: no limitations General appearance: alert, in no apparent distress - Head Head exam: atraumatic, normocephalic, normal inspection - Eye Eye exam: Present: normal appearance, PERRL, EOMI - ENT ENT exam: normal exam, normal oropharynx, mucous membranes moist - Neck Neck exam: Present: normal inspection - Chest Chest inspection: Present: normal inspection, symmetric chest wall rise - Respiratory Respiratory exam: Present: normal lung sounds bilaterally - Cardiovascular Cardiovascular exam: Present: regular rate, normal rhythm, normal heart sounds - Abdominal Exam Abdominal exam: Present: soft, Non-Tender. Absent: tenderness, distention, guarding, rebound, rigidity - Extremities Exam Extremities exam: Present: normal inspection, full ROM. Absent: tenderness, pedal edema - Expanded Lower Extremity Exam Neurovascular/Tendon exam: Absent: motor deficit, sensory deficit, tendon deficit Gait: not tested/not observed - Back Exam Back exam: Present: normal inspection - Neurological Exam Neurological exam: Present: alert, oriented X3 - Psychiatric Psychiatric exam: Present: normal affect, normal mood - Skin Skin exam: Present: warm, dry, intact, normal color Course - Reevaluation(s) Reevaluation #1: 2-year-old multiple risk factors previous stents who comes in with intermittent chest pain. Patient will be admitted for further evaluation and treatment. Workup here in the ER was negative. Time: 09:08 - Consultations Consultation #1: Discussed with Efren Curtis, admit Time: 09:09 Vital Signs O2 Sat by Pulse Oximetry 100 07/25/17 07:53 Temperature 98.1 F 07/25/17 07:56 Pulse Rate 68 07/25/17 08:37 Respiratory Rate 15 07/25/17 08:37 Blood Pressure 133/89 07/25/17 08:37 O2 Sat by Pulse Oximetry 99 07/25/17 08:37 Oxygen Delivery Oxygen Delivery Room Air Chest Pain - Lab Data Lab results reviewed: Yes I reviewed the patient's lab results. Result diagrams: 07/25/17 07:53 07/25/17 07:53 Lab Results 07/25/17 07/25/17 07/25/17 Range/Units 07:53 07:53 07:53 WBC 8.1 (4.3-11.1) K/mcL RBC 4.56 (3.82-4.97) M/mcL Hgb 14.2 (11.5-15.4) g/dL Hct 43.0 (35.3-44.9) % MCV 94.3 (83.0-100.0) fL MCH 31.1 (28.0-33.3) pg MCHC 33.0 (31.6-35.5) g/dL RDW 12.6 (11.5-14.5) % Plt Count 193 (140-400) K/mcL MPV 10.2 (9.4-12.4) fL Immature Gran % 0.4 (0-4) % Seg Neutrophils % 50.2 % Lymphocytes % 38.4 % Monocytes % 6.3 % Eosinophils % 3.8 % Basophils % 0.9 % Neutrophils # 4.1 (1.6-8.9) K/mcL Lymphocytes # 3.1 (0.6-4.6) K/mcL Monocytes # 0.5 (0.0-1.3) K/mcL Eosinophils # 0.3 (0.0-0.6) K/mcL Basophils # 0.1 (0.0-0.2) K/mcL Immature Plt Fraction 4.9 (1.1-6.1) % PT (9.4-12.1) Seconds INR APTT (26.0-36.0) Seconds Sodium 141 (136-145) mEq/L Potassium 4.0 (3.5-4.5) mEq/L Chloride 110 H (98-109) mEq/L Carbon Dioxide 24 (19-29) mEq/L BUN 20 (7-20) mg/dL Creatinine 1.32 H (0.57-1.11) mg/dL Est GFR ( Amer) 50 L (> 60) Est GFR (Non-Af Amer) 41 L (> 60) BUN/Creatinine Ratio 15 (6-26) Glucose 106 H (70-99) mg/dL Calculated Osmolality 295 (280-300) Calcium 9.2 (8.6-10.8) mg/dL Troponin I (0-0.03) ng/mL B-Natriuretic Peptide 25 (0-100) pg/mL Specimen Rejected 07/25/17 07/25/17 07/25/17 Range/Units 07:53 07:53 08:14 WBC (4.3-11.1) K/mcL RBC (3.82-4.97) M/mcL Hgb (11.5-15.4) g/dL Hct (35.3-44.9) % MCV (83.0-100.0) fL MCH (28.0-33.3) pg MCHC (31.6-35.5) g/dL RDW (11.5-14.5) % Plt Count (140-400) K/mcL MPV (9.4-12.4) fL Immature Gran % (0-4) % Seg Neutrophils % % Lymphocytes % % Monocytes % % Eosinophils % % Basophils % % Neutrophils # (1.6-8.9) K/mcL Lymphocytes # (0.6-4.6) K/mcL Monocytes # (0.0-1.3) K/mcL Eosinophils # (0.0-0.6) K/mcL Basophils # (0.0-0.2) K/mcL Immature Plt Fraction (1.1-6.1) % PT 11.5 (9.4-12.1) Seconds INR 1.1 APTT 26.0 (26.0-36.0) Seconds Sodium (136-145) mEq/L Potassium (3.5-4.5) mEq/L Chloride (98-109) mEq/L Carbon Dioxide (19-29) mEq/L BUN (7-20) mg/dL Creatinine (0.57-1.11) mg/dL Est GFR ( Amer) (> 60) Est GFR (Non-Af Amer) (> 60) BUN/Creatinine Ratio (6-26) Glucose (70-99) mg/dL Calculated Osmolality (280-300) Calcium (8.6-10.8) mg/dL Troponin I 0.00 (0-0.03) ng/mL B-Natriuretic Peptide (0-100) pg/mL Specimen Rejected Volume - Radiology Data Radiology results reviewed: Yes I reviewed the patient's radiology results. Chest X-Ray 07/25/17 07:46 IMPRESSION: No acute cardiopulmonary process. D/ / 07/25/2017 08:30:25 Wilson Dang MD / bcarter Interpreting Provider: Wilson Dang MD - EKG Data EKG attestation: Yes I reviewed and interpreted this EKG. EKG shows normal: sinus rhythm Rate: normal Rhythm: NSR When compared to previous EKG there are: no significant changes (12/21/2016) Interpretation: no acute changes Heart Score - Score History: Moderately Suspicious EKG: Normal Age: 45-65 Risk Factors: Equal/Greater than 3 risk factor or history of atherosclerotic disease Troponin: Less than normal limit HEART Score Total: 4
[2017-07-25 08:00] LABS: Eosinophils % 3.8 %; Hemoglobin 14.2 g/dL (11.5-15.4); Immature Granulocytes % 0.4 % (0-4); Immature Platelets 4.9 % (1.1-6.1); Lymphocytes % 38.4 %; Mean Corpuscular Hemoglobin 31.1 pg (28.0-33.3); Mean Corpuscular Volume 94.3 fL (83.0-100.0); Mean Platelet Volume 10.2 fL (9.4-12.4); Monocytes % 6.3 %; Platelet Count 193 K/mcL (140-400); Red Blood Count 4.56 M/mcL (3.82-4.97); Red Cell Distribution Width 12.6 % (11.5-14.5); Segmented Neutrophils % 50.2 %
[2017-07-25 08:01] LABS: Basophils # 0.1 K/mcL (0.0-0.2); Basophils % 0.9 %; Eosinophils # 0.3 K/mcL (0.0-0.6); Lymphocytes # 3.1 K/mcL (0.6-4.6); Monocytes # 0.5 K/mcL (0.0-1.3); Neutrophils # 4.1 K/mcL (1.6-8.9)
[2017-07-25 08:16] LABS: Calcium 9.2 mg/dL (8.6-10.8)
[2017-07-25 08:25] LABS: INR 1.1; Prothrombin Time 11.5 Seconds (9.4-12.1)
[2017-07-25] MEDS ORDERED: Ondansetron 4 MG/2 ML VIAL IVP PRN (10:13)
[2017-07-25] MEDS ORDERED: *HR* HYDROcodone/Acet 5/325 mg TABLET PO PRN (10:13)
[2017-07-25] MEDS ORDERED: Naloxone 0.4 MG/ML INJ IVP PRN (10:13)
[2017-07-25] MEDS ORDERED: tiZANidine 4 MG TABLET PO PRN (10:17)
[2017-07-25] MEDS ORDERED: traMADol 50 MG TABLET PO PRN (10:19)
[2017-07-25] MEDS ORDERED: Nitroglycerin 0.4 MG TAB.SUBL SL ONE (10:23)
[2017-07-25] MEDS: Nitroglycerin 0.4 MG TAB.SUBL SL PRN ×2 (10:24→12:47)
--- NOTE | 2017-07-25 10:41 | Internal Med History&Physical ---
<Nikos Marino - Last Filed: 07/25/17 14:00> Date of Encounter: 07/25/17 Time of Encounter: 09:00 Assessment and Plan (1) Chest pain Current visit: Yes Status: Acute Acute on chronic chest pain that pt. reports a centralized pressure in her chest with radiation to bilateral axillary areas and to central back. Patient' s previous stress test and echo was in October 2016 followed by echocardiogram & heart catheterization in December 2016 with stent placement 1. States she has nitroglycerin at home but does not use it. SOB w/exertion. Pt. reports she is scheduled to have a heart catheterization August 05 and is followed by Dr. Downs. Echocardiogram ordered. Initial troponin 0.00. Trend x2. Continuous cardiac telemetry. Pt. at high risk for cardiac event based on current sx, hx of previous NV 8 months ago w/stent placement, and risk factors of obesity and previous tobacco abuse. Observation. Qualifiers: Chest pain type: other chest pain Qualified Code(s): R07.89 - Other chest pain; R07.8 - Other chest pain (2) Weakness Current visit: Yes Status: Acute Acute weakness that pt. reports has been going on since December when she had heart catheterization and stent placement. Also reports SOB w/exertion on occasion. SpO2 99% on RA. Falls/safety precautions. (3) [place] (acute kidney injury) Current visit: Yes Status: Acute Acute kidney injury with creatinine of 1.32 and GFR of 41. Pt. denies any previous hx of CKD. Will use IV fluids judiciously and avoid nephrotoxins. Monitor I&O and daily weight. (4) GERD (gastroesophageal reflux disease) Current visit: Yes Status: Chronic Hx of chronic GERD. IVP Zofran Q6 PRN for nausea. Continue patient's Dexilant. Qualifiers: Esophagitis presence: esophagitis presence not specified Qualified Code(s) : K21.9 - Gastro-esophageal reflux disease without esophagitis (5) RLS (restless legs syndrome) Current visit: Yes Status: Chronic Hx of chronic RLS. Continue pts. Ultram and add stair-step pain medication for pain management. (6) DVT prophylaxis Current visit: Yes Status: Acute Continue pts. Brilinta for DVT prophylaxis. Monitor pt. for signs of bleeding. Internal Medicine - H&P: HPI Chief complaint: Chest pain Admitted From: Emergency Dept Plans for Post Hospital Care: Home History of present illness: Ms. Witt is a 62 year old female with history of GERD, restless leg syndrome, and previous heart attack in December 2016 the resulted in heart catheterization and stent placement 1 presents from the ED with chief complaint of chest pain that began this morning and she describes as central pressure in her chest moving to her bilateral axillary areas and to her back. She states this pain is similar to the previous chest pain she suffered during her heart attack. She reports no alleviating or aggravating factors. She states that she has been generally weak and not feeling herself since having the stent placement in December. She reports SOB, weakness, and chest pressure but denies recent illness, fever, chills, nausea, vomiting, diarrhea, constipation, abdominal pain, palpitations, changes in vision, unusual bleeding, numbness, tingling, headache , dizziness, lightheadedness, pre-syncope, or syncope. Past Med Surg Social Fam HX - Past Medical History Source: patient, old records reviewed, obtained from family Medical history: GERD, myocardial infarction (w/stent x1 in December 2016), other ( RLS) Psychiatric history: anxiety, depression - Past Surgical History Surgical History: orthopedic, other (Partial knee replacement in left knee) - Social History Smoking Status: Former smoker Packs per day: 1 PPD - Reports quitting in December 2016 Smokeless Tobacco Status: No Alcohol use: none Drug use: none Current living situation: Home, With Family Activity Level: Independent ambulation Recent Out of Country Travel Within the Last 8 Weeks: No Exposure or Possible Exposure to Illness During Travel: No - Family History Father Race: Family Member Ethnicity: Non- Living Status: Age at : 65 Cause of : CAD Hx Family Cardiac Disorders: Yes (CAD, Stroke, Brain aneurysm) Mother Race: Family Member Ethnicity: Non- Living Status: Age at : 83 Cause of : Massive stroke Hx Family Cardiac Disorders: Yes (CVA) Sister Race: Family Member Ethnicity: Non- Living Status: Still Living Hx Family Cancer: Yes (Breast) Brother Race: Family Member Ethnicity: Non- Living Status: Still Living Hx Family Musculoskeletal Disorders: Yes (Arthritis) Internal Medicine - H&P: Meds Dexlansoprazole [Dexilant] 60 mg PO DAILY 10/18/16 [History] Tramadol HCl [Ultram] 50 - 100 mg PO BID 10/18/16 [History] Ibuprofen 800 mg PO Q8H PRN #21 tablet 10/19/16 [Rx] Tizanidine HCl [Zanaflex] 2 mg PO TID PRN #15 cap 10/19/16 [Rx] Albuterol Sulfate [Proair Hfa] 2 puff IH Q4H PRN 12/21/16 [History] Aspirin Enteric Coated [Aspirin EC] 81 mg PO DAILY #30 tablet.dr 12/22/16 [Rx] Nitroglycerin 0.4 mg SL Q5MIN PRN #5 tab.subl 12/22/16 [Rx] Ticagrelor [Brilinta] 90 mg PO BID #60 tablet 12/22/16 [Rx] 3 Allergy/AdvReac Type Severity Reaction Status Date / Time iodine Allergy Hives Verified 11/09/16 11:47 All Systems PM: A 10-system review of systems was performed and is negative for pertinent findings except as documented above in the HPI. - Constitutional Constitutional: as per HPI, weakness, no chills, no fever(s), no night sweats - EENT Eyes: no change in vision, no discharge, no pain, no photophobia Ears: no ear discharge, no ear pain, no tinnitus Nose, mouth and throat: no dysphagia, no nasal discharge, no neck pain, no sore throat - Breasts Breasts: as per HPI - Cardiovascular Cardiovascular ROS IM: as per HPI, chest pain (Centralized pressure w/radiation to bilateral axillary areas and central back), dyspnea, dyspnea on exertion - Respiratory Respiratory: as per HPI, dyspnea, dyspnea on exertion - Gastrointestinal Gastrointestinal: no abdominal pain, no diarrhea, no hematemesis, no hematochezia, no melena, no nausea, no vomiting - Genitourinary Genitourinary: no change in urinary stream, no dysuria, no flank pain, no hematuria Menstruation: as per HPI - Musculoskeletal Musculoskeletal ROS IM: no numbness, no tingling - Integumentary Integumentary IM: no rash, no unusual bruising - Neurological Neurological ROS: no confusion, no convulsions, no focal weakness, no numbness, no tingling, no tremor(s) - Psychiatric Psychiatric: as per HPI - Endocrine Endocrine IM: as per HPI - Hematologic/Lymphatic Hematologic/Lymphatic: no easy bruising - Allergic/Immunologic Allergic/Immunologic: as per HPI - Constitutional Vitals: Temp Pulse Resp BP Pulse Ox 98.1 F 70 12 127/84 98 07/25/17 07:56 07/25/17 10:26 07/25/17 09:12 07/25/17 10:26 07/25/17 09:12 General appearance: Present: cooperative, mild distress, A&O X 3, pleasant, obese, answers questions appropriately - Head Head exam: Present: atraumatic, normal inspection, normocephalic - Eye Eye exam: Present: PERRL, conjuntiva pink, sclera anicteric Pupils: Present: PERRL - ENT ENT exam: Present: normal exam, normal external ear exam - Neck Neck exam general surgery: Present: normal inspection, supple, trachea midline. Absent: lymphadenopathy - Respiratory Respiratory exam: Present: CTAB. Absent: accessory muscle use, rales, rhonchi, wheezes - Cardiovascular Cardiovascular exam: Present: RRR, +S1, +S2. Absent: diastolic murmur, gallop, rubs, systolic murmur - GI/Abdominal GI/Abdominal exam: Present: normal bowel sounds, soft, no peritoneal signs. Absent: distended, tenderness - Rectal Rectal exam: Present: deferred - Additional comments: exam deferred. - Extremities Exam Extremities exam: Present: pedal edema, warm, radial pulses palpable and symmetrical. Absent: calf tenderness, cyanotic - Back Exam Back exam: Present: normal inspection - Neurological Exam Neurological exam: Present: CN II-XII intact, oriented X3, no focal deficits. Absent: pronater drift, facial droop, speech deficit - Psychiatric Psychiatric exam: Present: normal affect, normal mood - Skin Skin exam: Present: dry, intact Internal Med - H&P Results - Labs CBC & Chem 7: 07/25/17 07:53 07/25/17 07:53 - EKG Data EKG shows normal: sinus rhythm - EKG Data Prior EKG available for review: yes EKG comments: 07/25/17 10:46 EKG dated 12/21/16 shows sinus rhythm with occasional ventricular premature complexes and left atrial enlargement. EKG dated 07/25/17 shows sinus rhythm with possible left atrial enlargement. - Diagnostic Studies Chest x-ray Additional comments: Impressions Chest X-Ray 07/25/17 07:46 IMPRESSION: No acute cardiopulmonary process. D/ / 07/25/2017 08:30:25 Wilson Dang MD / [email or web address] Interpreting Provider: Wilson Dang MD <EverEfren A - Last Filed: 07/25/17 18:49> Date of Encounter: 07/25/17 Internal Medicine - H&P: HPI History of present illness: Ms. Witt is a 62 year old female All Systems PM: A 10-system review of systems was performed and is negative for pertinent findings except as documented above in the HPI. - Constitutional Vitals: Temp Pulse Resp BP Pulse Ox 97.9 F 77 16 117/76 96 07/25/17 14:26 07/25/17 14:26 07/25/17 14:26 07/25/17 14:26 07/25/17 14:26 Internal Med - H&P Results - Labs CBC & Chem 7: 07/25/17 07:53 07/25/17 07:53 Labs: Cardiac Enzymes 07/25/17 Range/Units 13:43 Troponin I 0.00 (0-0.03) ng/mL - Attending Attestation I have personally performed a face to face evaluation on this patient. I have reviewed and agree with the care plan. History and Exam by me shows: 62 y/o female here with chest pain. Exam Alert Comfortable Heart reg Agree with assessment and plan as above.
[2017-07-25] MEDS: traMADol 50 MG TABLET PO PRN (14:59)
[2017-07-25] MEDS: Acetaminophen 325 MG TABLET PO PRN (17:47)
[2017-07-25] MEDS: *HR* Ticagrelor 90 MG TABLET PO SCH (20:53)
[2017-07-26] MEDS: traMADol 50 MG TABLET PO PRN (00:10)
[2017-07-26 04:00] LABS: Basophils # 0.1 K/mcL (0.0-0.2); Basophils % 1.1 %; Eosinophils # 0.3 K/mcL (0.0-0.6); Eosinophils % 4.8 %; Hematocrit 39.5 % (35.3-44.9); Hemoglobin 12.9 g/dL (11.5-15.4); Immature Granulocytes % 0.6 % (0-4); Lymphocytes # 2.8 K/mcL (0.6-4.6); Lymphocytes % 43.6 %; Mean Corpuscular HGB Conc 32.7 g/dL (31.6-35.5); Mean Corpuscular Hemoglobin 30.7 pg (28.0-33.3); Mean Platelet Volume 10.9 fL (9.4-12.4); Monocytes # 0.5 K/mcL (0.0-1.3); Monocytes % 7.3 %; Neutrophils # 2.8 K/mcL (1.6-8.9); Platelet Count 176 K/mcL (140-400); Red Cell Distribution Width 12.4 % (11.5-14.5); Segmented Neutrophils % 42.6 %
[2017-07-26 04:14] LABS: Hemoglobin A1C 5.4 %
[2017-07-26 04:16] LABS: Albumin/Globulin Ratio 0.9 (1.1-2.2); Bilirubin,Total 0.6 mg/dL (0.2-1.2); Chol/HDL Ratio 4.2 (0-4.9); Globulin 3.4 g/dL (2.4-3.5); Magnesium 1.8 mg/dL (1.6-2.6); Total Protein 6.4 g/dL (6.0-8.3)
--- NOTE | 2017-07-26 06:19 | Electrocardiograph Report ---
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
--- NOTE | 2017-07-26 08:27 | Cardiology Consult Note ---
<Lizy Cervantes - Last Filed: 07/26/17 09:56> Date of Encounter: 07/26/17 Time of Encounter: 09:00 Assessment and Plan (1) Chest pain Current Visit: Yes Status: Acute CC: typical chest pain x 1 day. pmh of CAD with stent RCA december 2016, patient taking ASA and Brilanta. Vitals have been within normal limits. Troponin negative x3. Creatinine = 1.23 (elevated to similar range since at least Oct 2016). CXR showed no acute cardiopulmonary process. Echo this hospital visit showed EF 60%, normal LV, RV structive and function. No vaular dysfunction. Normal segmental motion. Patient is Dr. Downs's outpatient and already had scheduled a LHC for 08/05/17. Dr. Downs talked to the patient this morning and discussed moving the LHC to tomorrow morning. Will make patient NPO after midnight. Due to patient's allergy to iodine will give steroids prior to LHC. Concerning optimizing medical therapy. Patient has not been taking Atorvastatin for the last week and a half 2/2 the medication making her feel nauseated and weak. She was taking 40mg then 20mg then she completely discontinued. Will discuss with patient about other statin options. Plan: - LHC tomorrow - Will give IV fluids 75ml/hr for 1L hydration prior to cath - continue ASA, Brilinta, nitro - continue telemetry - cardiac diet, NPO after midnight Qualifiers: Chest pain type: other chest pain Qualified Code(s): R07.89 - Other chest pain; R07.8 - Other chest pain Discussion w patient/family: The assessment and plan as outlined above was discussed with the patient and/or family members who expressed understanding and agreement. All questions were answered. Thank you for involving us in the care of your patient. Please call with any questions. History of Present Illness Consult date: 07/26/17 Requesting physician: Efren Curtis Consult reason: CP Chief complaint: chest pain History of present illness: Ms. Witt is a 62 year old female with a pmh of NSTEMI with stent in RCA in December 2016 presented to the ED with typical chest pain. Patient states that while at rest at 2am 07/25/17 she began having substernal chest pain radiating to her arms bilaterally and jaw. She states that the pain is the same as her last MN. Patient denies nausea or sweating at the time. Patient did not take nitro or aspirin but went to the ED where they gave her nitro and her CP was relieved. Patient is currently not having chest pain. She does admit to nausea and a BARBER. Patient denies a fhx of heart disease. She is a former smoker and quit in December 2016. Patient has previously been taking aspirin every other due to bruising but Dr. Downs on 07/23/17 told her to begin taking it everyday again. In December 2016 patient's Echo, stress, and EKG showed no signs of ischemia /infarction prior to her MN. cardiac testing: [facility] 12/2016: Ef 60%, stent in RCA, mid LAD 60% stenosis, mid circumflex 50% stenosis. Echo just prior to [facility] 12/2016 showed LVEF 55% and no wall segment abnormalities. Nuc stress 10/2016: EF= 66%, negative for ischemia or infarction. Past Med Surg Social Fam HX - Past Medical History Medical history: GERD, myocardial infarction (w/stent x1 in December 2016), other ( RLS) Psychiatric history: anxiety, depression - Past Surgical History Surgical History: orthopedic, other (Partial knee replacement in left knee) - Social History Smoking Status: Former smoker Packs per day: 1 PPD - Reports quitting in December 2016 Smokeless Tobacco Status: No Alcohol use: none Drug use: none - Family History Father Race: Family Member Ethnicity: Non- Living Status: Age at : 65 Cause of : CAD Hx Family Cardiac Disorders: Yes (CAD, Stroke, Brain aneurysm) Hx Family Respiratory Disorders: No Hx Family Cancer: No Hx Family GI Disorders: No Hx Family Genitourinary Disorders: No Hx Family Endocrine Disorder: No Hx Family Musculoskeletal Disorders: No (hernia) Hx Family Neuromuscular Disorders: No Hx Family Neurologic Disorders: No Hx Family HEENT Disorders: No Hx Family Autoimmune Disorders: No Hx Family Reproductive Disorders: No Hx Family Psychosocial Disorders: No Hx Family Medical Disorders: No Mother Race: Family Member Ethnicity: Non- Living Status: Age at : 83 Cause of : Massive stroke Hx Family Cardiac Disorders: Yes (CVA) Hx Family Respiratory Disorders: No Hx Family Cancer: Yes (colon cancer) Hx Family GI Disorders: No Hx Family Genitourinary Disorders: No Hx Family Endocrine Disorder: No Hx Family Musculoskeletal Disorders: Yes (Arthritis) Hx Family Neuromuscular Disorders: No Hx Family Neurologic Disorders: No Hx Family HEENT Disorders: No Hx Family Autoimmune Disorders: No Hx Family Reproductive Disorders: No Hx Family Psychosocial Disorders: No Hx Family Medical Disorders: No Sister Race: Family Member Ethnicity: Non- Living Status: Still Living Hx Family Cancer: Yes (Breast) Brother Race: Family Member Ethnicity: Non- Living Status: Still Living Hx Family Musculoskeletal Disorders: Yes (Arthritis) Medications and Allergies Dexlansoprazole [Dexilant] 60 mg PO DAILY 10/18/16 [History] Tramadol HCl [Ultram] 50 - 100 mg PO BID 10/18/16 [History] Ibuprofen 800 mg PO Q8H PRN #21 tablet 10/19/16 [Rx] Tizanidine HCl [Zanaflex] 2 mg PO TID PRN #15 cap 10/19/16 [Rx] Albuterol Sulfate [Proair Hfa] 2 puff IH Q4H PRN 12/21/16 [History] Aspirin Enteric Coated [Aspirin EC] 81 mg PO DAILY #30 tablet.dr 12/22/16 [Rx] Nitroglycerin 0.4 mg SL Q5MIN PRN #5 tab.subl 12/22/16 [Rx] Ticagrelor [Brilinta] 90 mg PO BID #60 tablet 12/22/16 [Rx] 3 Allergy/AdvReac Type Severity Reaction Status Date / Time iodine Allergy Hives Verified 11/09/16 11:47 All Systems Review: A 10-system review of systems was performed and is negative for pertinent findings except as documented above in the HPI. Physical Examination Vital Signs, Last 4 Hours Temp Pulse Resp BP Pulse Ox 07/26/17 07:43 98.4 F 66 20 134/86 96 General: Conversant, No Apparent Distress HEENT: Normocephaly, Mucus Membranes Moist Neck: No JVD, Normal carotid pulses Cardiac: Reg Rate and Rhythm, Normal S1 and S2, No Murmur Lungs: Normal Breath Sounds, No Wheeze, Rales, Rhonchi Neuro: Alert and responsive, No focal deficits noted Abdomen: Soft Skin: No rashes noted on visualized skin Extremities: No Clubbing, No Cyanosis, No Edema, Normal Pulses Results 07/26/17 03:19 07/26/17 03:19 Lab Results 1107/25/17 07/26/17 13:43 21:04 03:19 WBC 6.5 Hgb 12.9 Hct 39.5 Plt Count 176 Sodium Potassium Chloride Carbon Dioxide BUN Creatinine Glucose Calcium Magnesium Total Bilirubin AST ALT Alkaline Phosphatase Troponin I 0.00 0.00 07/26/17 03:19 WBC Hgb Hct Plt Count Sodium 142 Potassium 4.0 Chloride 113 H Carbon Dioxide 22 BUN 20 Creatinine 1.23 H Glucose 114 H Calcium 9.0 Magnesium 1.8 Total Bilirubin 0.6 AST 12 ALT 9 Alkaline Phosphatase 89 Troponin I - EKG Interpretation EKG results cardiology: personally reviewed (Sinus rhythm), sinus rhythm, no diagnostic ischemia Consult Discharge Plan - Plan Referrals: Constanza Keller, [facility] [Primary Care Provider] - <Cathryn Lin - Last Filed: 07/26/17 11:31> Date of Encounter: 07/26/17 - Attending Attestation I examined this patient and my medical decision-making was reviewed with the Resident Physician. I agree with the documented findings, disposition and treatment plan. Ms. Witt presents with atypical chest pain, negative troponins x 3 and no new ECG changes. Presentation is not consistent with ACS. However, patient has known CAD having undergone LHC with PCI to RCA in December of this year. She's been having worsening dyspnea and had planned LHC with her primary in home tutor , Dr. Downs. He is aware of her admission and plans to proceed with LHC tomorrow after premedication for IVP allergy and after fluid hydration for CKD. The R/B/A of the procedure had previously been discussed with the patient in the office with her primary in home tutor. Patient accepts the risks and wants to proceed. Assessment and Plan Discussion w patient/family: The assessment and plan as outlined above was discussed with the patient and/or family members who expressed understanding and agreement. All questions were answered. Thank you for involving us in the care of your patient. Please call with any questions. History of Present Illness History of present illness: Ms. Witt is a 62 year old female All Systems Review: A 10-system review of systems was performed and is negative for pertinent findings except as documented above in the HPI. Physical Examination Vital Signs, Last 4 Hours Temp Pulse Resp BP Pulse Ox 07/26/17 07:43 98.4 F 66 20 134/86 96 Results 07/26/17 03:19 07/26/17 03:19 Lab Results 07/25/17 07/25/17 07/26/17 13:43 21:04 03:19 WBC 6.5 Hgb 12.9 Hct 39.5 Plt Count 176 Sodium Potassium Chloride Carbon Dioxide BUN Creatinine Glucose Calcium Magnesium Total Bilirubin AST ALT Alkaline Phosphatase Troponin I 0.00 0.00 07/26/17 03:19 WBC Hgb Hct Plt Count Sodium 142 Potassium 4.0 Chloride 113 H Carbon Dioxide 22 BUN 20 Creatinine 1.23 H Glucose 114 H Calcium 9.0 Magnesium 1.8 Total Bilirubin 0.6 AST 12 ALT 9 Alkaline Phosphatase 89 Troponin I
[2017-07-26] MEDS: *HR* Ticagrelor 90 MG TABLET PO SCH ×2 (09:23→20:13)
[2017-07-26] MEDS: Aspirin Enteric Coated 81 MG Tablet PO SCH (09:23)
[2017-07-26] MEDS: Acetaminophen 325 MG TABLET PO PRN (09:24)
[2017-07-26] MEDS ORDERED: traMADol 50 MG TABLET PO ONE (10:21)
--- NOTE | 2017-07-26 10:24 | Internal Med Progress Note ---
Date of Encounter: 07/26/17 Time of Encounter: 10:24 - Assessment and plan (1) Unstable angina Current Visit: Yes Status: Suspected Assessment and plan: Pt with recurrent chest pain episode as outpatient. Plan is for cath tomorrow after prep for kidneys and allergy. Continue medical management at this tie. (2) GERD (gastroesophageal reflux disease) Current Visit: Yes Status: Chronic Assessment and plan: Continue home medication. Qualifiers: Esophagitis presence: esophagitis presence not specified Qualified Code(s) : K21.9 - Gastro-esophageal reflux disease without esophagitis (3) RLS (restless legs syndrome) Current Visit: Yes Status: Chronic Assessment and plan: Tramadol dosing adjusted to daily. (4) CKD (chronic kidney disease) stage 3, GFR 30-59 ml/min Current Visit: Yes Status: Chronic Assessment and plan: Monitor renal function and avoid nephrotoxins. (5) Obesity (BMI 35.0-39.9 without comorbidity) Current Visit: Yes Status: Chronic - Subjective Interval history: Ms Witt is currently in observation for chest pain. She remains moderate to high risk due to potential for worsening cardiac status. Ms Witt has no pain at this time. She is having issues with her restless legs and is frustrated about the tramadol scheduling. She usually takes 150mg once daily at home. No fever or chills. No dyspnea noted at this time. No GI issues. Planning for cardiac cath tomorrow. To get prep today due to allergy. - Constitutional Vitals: Temp Pulse Resp BP Pulse Ox 98.4 F 66 20 134/86 96 07/26/17 07:43 07/26/17 07:43 07/26/17 07:43 07/26/17 07:43 07/26/17 07:43 General appearance: Present: cooperative, A&O X 3, pleasant, obese, answers questions appropriately - Head Head exam: Present: atraumatic, normocephalic - Eye Eye exam: Present: EOMI, PERRL, conjuntiva pink - ENT ENT exam: Present: mucous membranes moist - Neck Neck exam general surgery: Present: supple. Absent: lymphadenopathy, thyromegaly - Respiratory Respiratory exam: Present: CTAB. Absent: rales, rhonchi, wheezes - Cardiovascular Cardiovascular exam: Present: RRR. Absent: systolic murmur, tachycardia - GI/Abdominal GI/Abdominal exam: Present: soft. Absent: mass, tenderness - Extremities Exam Extremities exam: Present: warm. Absent: tenderness - Neurological Exam Neurological exam: Present: alert, oriented X3, no focal deficits - Skin Skin exam: Present: dry, warm. Absent: rash Internal Medicine: Result - Labs CBC & Chem 7: 07/26/17 03:19 07/26/17 03:19 Labs: Short CBC 07/26/17 Range/Units 03:19 WBC 6.5 (4.3-11.1) K/mcL Hgb 12.9 (11.5-15.4) g/dL Hct 39.5 (35.3-44.9) % Plt Count 176 (140-400) K/mcL Neutrophils # 2.8 (1.6-8.9) K/mcL BMP 07/26/17 03:19 Sodium 142 Potassium 4.0 Chloride 113 H Carbon Dioxide 22 BUN 20 Creatinine 1.23 H Glucose 114 H Calcium 9.0 Cardiac Enzymes 07/25/17 07/25/17 Range/Units 13:43 21:04 Troponin I 0.00 0.00 (0-0.03) ng/mL Liver Function 07/26/17 Range/Units 03:19 Total Bilirubin 0.6 (0.2-1.2) mg/dL AST 12 (5-34) Units/L ALT 9 (0-55) Units/L Alkaline Phosphatase 89 (38-126) Units/L Albumin 3.0 L (3.5-5.0) g/dL - ABG Interpretation ABG results: PT/INR, D-dimer PT 11.5 Seconds (9.4-12.1) 07/25/17 08:14 - Impressions Impressions Echocardiogram 07/25/17 10:26 Impressions: LVEF 60%. Normal LV chamber size, wall thickness and function. Mild left ventricular diastolic dysfunction. Normal right ventricular structure and function. Borderline mild pulmonary hypertension. Estimated RVSP is 35 mmHg. No significant valvular dysfunction. Left Ventricular Wall Motion: Rest Echo Findings All wall segments showed normal motion. Findings: Study Quality * Technically adequate exam. ECG Findings * Normal sinus rhythm. Left Ventricle * LVEF 60%. * Normal LV chamber size, wall thickness and function. * Mild left ventricular diastolic dysfunction. Right Ventricle * Normal right ventricular structure and function. Left Atrium * Mildly dilated left atrium. Right Atrium * Mildly dilated right atrium. Interatrial Septum * Interatrial septum not well evaluated. Aortic Valve * Aortic valve not well visualized. * No aortic regurgitation. * No aortic stenosis. Mitral Valve * Normal mitral valve structure and function. * No mitral regurgitation. * No mitral stenosis. Tricuspid Valve * Normal tricuspid valve structure and function. * Trace tricuspid regurgitation. * Borderline mild pulmonary hypertension. * Estimated RVSP is 35 mmHg. Pulmonic Valve * Pulmonic valve not well visualized. Aorta * Normally sized aortic root. Pericardium * The pericardium appears normal. IVC * Normal IVC dimensions and inspiratory collapse. Pulmonary Artery * Normal visualized portions of the main pulmonary artery. Consult Discharge Plan - Plan Referrals: Constanza Keller, [facility] [Primary Care Provider] -
[2017-07-26] MEDS ORDERED: 0.9 % Sodium Chloride 1,000 ML ONE ×2 (16:00→16:29)
[2017-07-26] MEDS ORDERED: Heparin 1,000 UNITS/500 mL NS 500 ML ONE (16:00)
[2017-07-26] MEDS ORDERED: *HR* Heparin 10,000 UNIT/10 ML VIAL ONE (16:00)
[2017-07-26] MEDS ORDERED: Nitroglycerin 1,000 MCG/10 ML VIAL IV ONE (16:00)
[2017-07-26] MEDS ORDERED: *HR* Midazolam HCl 2 MG/2 ML VIAL ONE ×2 (16:29→17:06)
[2017-07-26] MEDS ORDERED: methylPREDNISolone 125 MG/2 ML VIAL ONE (16:33)
--- NOTE | 2017-07-26 16:33 | Event Note ---
Date of Encounter: 07/26/17 Time of Encounter: 16:32 - Cardiology Event Note Spoke with patient - gave her the option of proceeding with [facility] today. She can be premedicated prior to the procedure and have gentle hydration after cath for CKD. She expressed understanding and verbalized agreement to proceed.
--- NOTE | 2017-07-26 16:35 | Pre-Sedation Evaluation ---
Pre-sedation evaluation - Pre-sedation checklist Date of procedure: 07/26/17 Procedure: heart cath Recent Vitals: Last Vital Signs Temp 97.7 F 07/26/17 15:28 Pulse 64 07/26/17 15:28 Resp 20 07/26/17 15:28 BP 114/71 07/26/17 15:28 Pulse Ox 95 07/26/17 15:28 H&P (including ROS) documented in medical record: Yes Previous reaction to sedatives/anesthetics: No Dietary Status: No solid food in preceding 4 hrs and no liquid in preceding 2 hrs Airway Assessment: Patient can open mouth completely, TMJ function normal Dentition: No loose teeth or bridges Possible difficult airway: No ASA Classification *see protocol: CLASS IV-Severe systemic disease/constant threat to pt's life Plan of Care: Pt appropriate candidate for procedure/moderate/conscious sedation , Risks/benefits of procedure/sedation discussed w/ patient/family, If not NPO; Risk of intake outweiged by necessity to perform procedure (PT reports chest pain twice this afternoon, same as before, chest pain on way to lab.)
--- NOTE | 2017-07-26 17:37 | Event Note ---
Date of Encounter: 07/26/17 Time of Encounter: 17:36 - Cardiology Event Note LHC revealed patent stents, otherwise nonobstructive CAD with no intervention warranted. Continue ASA and Brilinta. Started low dose BB, Statin and Imdur. Cardiology signing off. Reconsult PRN. Follow-up as outpt. Will coordinate.
--- NOTE | 2017-07-26 17:42 | Invasive Diagnostic Lab Proc ---
Name: Georgina Witt Date of Study: 07/26/2017 Date: 1955 Ht: 66.9in Medical Record#: [id number] Age: 62 Wt: 227.08lb Gender: Female BSA: 2.13 Order #: [id number] BMI: 35.64 Physicians Procedure Physician: Sharan Wong DO Referring MD: Referring MD: Indications Indication Unstable Angina Procedures Performed Procedure L HRT ARTERY/VENTRICLE ANGIO Pre-Procedure Checklist Informed consent is complete signed and on chart. H&P is on chart. ID band is on and ID verified with patient. Patient NPO for procedure The procedure was described for the patient and questions were answered. Blood Pressure: 152/99 ECG is on chart. Rhythm: NSR Plan of Care Patient will tolerate the procedure without complications. Adequate level of comfort will be maintained. Hemodynamics will remain stable Patient will recover from procedure without complications. Respiratory function will be maintained. Cardiac rhythm will remain stable. Patient temperature will be maintained. Patient and/or family have verbalized understanding of the procedure. Patient Education Chief Complaint/Reason for Test: Cardiac Cath Developmental Category: Adult (18-64 years) Developmentally Appropriate for Age: Yes Learning Barriers: None Education Needs: Procedure Education Method: Verbal Information Taught: Cardiac Cath Educational Evaluation: Able to repeat information Intravenous Access Time IV Size Location DC'd Fluid/Drip Rate Units RN 04:38 PM 20g 1 1/4" Patent On Arrival Lt Antecubital Yes 04:45 PM Started with 20g 1 1/4" Rt Arm Yes 0.9NaCl 25 ml/hr Marie Yip RN 05:03 PM Started with 20g 1 1/4" Lt Hand 0.9NaCl 25 ml/hr Marie Yip RN Allergies iodine Vital Signs Time BP (mmHg) HR (bpm) O2 Sat. RR (bpm) LOC 04:38 PM 0 / % 04:39 PM 150 / 91 66 97 % 18 04:48 PM 152 / 99 77 98 % 14 04:52 PM 152 / 99 83 100 % 22 04:58 PM 165 / 100 76 100 % 6 05:02 PM 157 / 105 78 100 % 18 05:07 PM 149 / 100 74 100 % 21 05:13 PM 129 / 73 77 100 % 21 Procedural Medications Time Medication Dose Units Method Given By 04:35 PM Oxygen 2 L/min nasal cannula Marie Yip RN 04:47 PM Benadryl 50 mg Intravenous Marie Yip RN 04:47 PM Solu-medrol 125 mg Intravenous Marie Yip RN 04:47 PM Versed 2 mg Intravenous Marie Yip RN 04:55 PM Lidocaine 2% 10 ml Subcutaneous Sharan Marvin, DO 05:00 PM Lidocaine 2% 8 ml Subcutaneous Sharan Wong, DO 05:06 PM Versed 1 mg Intravenous Marie Yip RN 05:16 PM Versed 1 mg Intravenous Marie Yip RN ASA Classification: CLASS IV- Severe systemic that is constant threat to patient's life Dorita Score Preprocedure Postprocedure Activity 2- Moves 4 extremities sustained head lift Activity Circulation 2- SBP +/= 20 points of pre-anesthetic level Circulation Consciousness 2- Awake and alert oriented x 3 Consciousness O2 Saturation 2- Able to maintain O2 satruation of 92% on room air O2 Saturation Respiratory 2- Able to deep breathe and cough well Respiratory Total Score 10 Total Score Contrast Agent: Isovue Diagnostic Contrast: 85 ml Total Contrast: 85 ml Fluoro Dose: 321 mGy Procedure Log Time Note Enter By 04:35 PM 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 [facility] 04:35 PM Procedure start 16:35 tsmmers 04:35 PM Time: 16:35 Oxygen on at 2 L/min per [facility] PM Time: 16:35 Patient comfortable and pain free: Yes [facility] PM Time: 16:35 Patient comfortable and pain free: Yes tsoummers 04:36 PM Patient charges- Angio tray pack, Navilyst 3mm J, Pulse Oximetry and ACIST tubing and transducer tsoummers 04:36 PM Case Delayed No, inpatient tsoummers 04:36 PM Pt stated that she had chest pain earlier this afternoon. She is currently pain free tsoummers 04:37 PM IV Supplies used: J loop Angio Cath. tsoummers 04:37 PM CathStat 04:37 PM Vitals capture started with the following parameters, Patient=Adult, Interval=5 min, Initial Shnzddwm=328 mmHg, Deflation Rate=5 mmHg, Cuff placed on Right Arm 04:39 PM Iv from the floor is infiltrated. New IV will be started [facility] 04:39 PM HR=66 bpm, BLAB=187/91 mmhg, SpO2=97.0 %, Resp=18 B/min, Comment=sr 04:39 PM Hair removed from procedure site in procedure lab using clippers. Bilateral groin prepped with Chloraprep by Andreea Fortune RN, safety strap applied then patient was draped. Skin intact. [facility] 04:44 PM Vitals capture stopped. 04:46 PM Vitals capture started with the following parameters, Patient=Adult, Interval=5 min, Initial Wkllirqb=828 mmHg, Deflation Rate=5 mmHg, Cuff placed on Right Arm 04:47 PM Time: 16:47 Benadryl 50 mg Intravenous Given by Marie Yip RN 04:47 PM Clinical Presentation: [facility] 04[facility] PM Time: 16:47 Solu-medrol 125 mg Intravenous Given by Marie Yip RN 04:47 PM Time: 16:47 Versed 2 mg Intravenous Given by Marie Yip RN 04:48 PM HR=77 bpm, RQNM=186/99 mmhg, SpO2=98.0 %, Resp=14 B/min, Comment=nsr 04:50 PM Time: 16:35 Patient comfortable and pain free: Yes lamar 04:52 PM HR=83 bpm, WDGC=308/99 mmhg, NkF5=071.0 %, Resp=22 B/min, Comment=nsr 04:53 PM Pressure channel 2 zeroed. 04:55 PM Time out performed according to hospital policy [facility] 04[facility] PM Time: 16:55 10 ml Lidocaine 2% to right groin Subcutaneous Given by DO lea Zuñiga 04:56 PM Pressure channel 2 zeroed. 04:58 PM HR=76 bpm, XTYF=258/100 mmhg, EhO1=564.0 %, Resp=6 B/min, Comment=nsr 05:00 PM Time: 17:00 8 ml Lidocaine 2% to right groin Subcutaneous Given by DO lea Zuñiga 05:02 PM HR=78 bpm, OBCR=390/105 mmhg, IjA3=461.0 %, Resp=18 B/min, Comment=nsr 05:03 PM IV line got pulled out. New IV being started 05:06 PM Time: 16:50 Patient comfortable and pain free: Yes [facility] 05:06 PM Time: 17:06 Versed 1 mg Intravenous Given by Marie Yip RN [facility] 05:06 PM IV Supplies used: J loop Angio Cath. 05:07 PM HR=74 bpm, YILD=066/100 mmhg, PhR6=861.0 %, Resp=21 B/min, Comment=nsr 05:11 PM Micro-Introducer Kit utilized for sheath placement 05:11 PM 5Fr FR 4 catheter inserted over the wire DNC 05:12 PM Access obtained by percutaneous puncture. 6Fr 10cm Terumo [place] sheath placed in right Femoral artery. [id number] [facility] 05:12 PM Catheter selectively placed in left ventricle [facility] 05:12 PM Recorded Pressure: LV, HR=77, Condition=Condition 1 (Left Ventricle) LV 156/3/12 05:13 PM Recorded Pressure: LV, Ao, HR=79, Condition=Condition 1 (Left Ventricle) LV 150/0/7, (Aorta) Ao 157/92/120 05:13 PM HR=77 bpm, WQWV=518/73 mmhg, ArU8=328.0 %, Resp=21 B/min, Comment=nsr 05:13 PM Bolus angiogram of left Ventricle complete: 10mls hand injected [facility] 05:14 PM RCA angiography performed in multiple views. 05:14 PM Catheter removed [facility] 05:15 PM 6Fr JL4 Runway guide catheter was used to cannulate the PCI vessel successfully. reused? No [facility] 05:15 PM Coronary Dominance: right 05:15 PM LCA angiography performed in multiple views. [facility] 05:15 PM Recorded Pressure: Ao, HR=75, Condition=Condition 1 (Aorta) Ao 143/81/107 05:16 PM Time: 17:16 Versed 1 mg Intravenous Given by Marie Yip RN [facility] 05:19 PM Guide catheter removed intact. tsoummers 05:20 PM Procedure completed at 17:20 tsoummers 05:20 PM Sign out completed: Radiation Dose 321 mGy Fluoro Time: 2.1 Isovue 370 - 200ml contrast 85 ml given by Sharan Wong DO. Complications: NoneCardiac Rehab Consult needed: NoConfirmed administered medications: Yes tsoummers 05:20 PM Isovue 370 - 200ml,1 Bottle(s) used. tsoummers 05:21 PM Estimated Blood Loss: minimal tsoummers 05:21 PM Time: 17:06 Patient comfortable and pain free: Yes tsoummers 05:21 PM Post ECG NSR tsoummers 05:21 PM Post Blood Pressure 143/81 tsoummers 05:22 PM Arterial sheath pulled, Angio-seal closure device used and was Successful [id number] S/N. oumm 05:22 PM 17:22 Post Pulses Bilateral DP 2+ tsoummers 05:24 PM Information taught Cardiac Cath and Angioseal tsoummers 05:24 PM Education needs Plan of Care, Procedure, and Responsibilities of Patient in Care tsoummers 05:24 PM Learning barriers :None tsoummers 05:24 PM Education Methods Verbal oumm 05:24 PM Education evaluation Able to repeat information mm 05:25 PM Opsite applied tsoummers 05:25 PM Plavix, Effient or Brilinta given No tsoummers 05:25 PM Delay to floor No tsoummers 05:25 PM Family placed in consult room. tsoummers 05:25 PM Complications: None tsoummers 05:27 PM Report given to tarun VERAS Pt taken to 3B Room #22. 17:25 tsoummers 05:30 PM Patient out of room: 17:29 tsoummers 05:30 PM Site status No bleeding/hematoma - Rt Groin as reported by Shakira Stewart RT at 17:30 [facility] Complications Complication None None Hemodynamics Pressures Site Systolic/A Wave Diastolic/V Wave Mean LV 156 3 12 LV 150 0 7 AO 157 92 120 AO 143 81 107 Post Procedure Information Blood Pressure: 143/81 mmHg Rhythm: NSR Post procedural instructions were given Closure Device Time Device Success/Fail 07/26/2017 5:30:00 PM Angio-Seal VIP Successful Site Checks Time Location Status Staff Sheath In? Note 05:30 PM Rt Groin No bleeding/hematoma Shakira Stewart RT Pulses Time Site Pre-Procedure Post-Procedure Note 07/26/2017 4:38:00 PM Bilateral DP 2+ 07/26/2017 4:42:00 PM Bilateral PT 1+ 5:22:00 PM Bilateral DP 2+ Updated by Marie Yip RN on 07/26/2017 5:33:51 PM electronically signed on 07/26/2017 5:34:46 PM with status of Final
[2017-07-26] MEDS ORDERED: 0.9 % Sodium Chloride 1,000 ML IVC SCH (17:45)
[2017-07-26] MEDS ORDERED: predniSONE 20 MG TABLET PO ONE (21:00)
[2017-07-27 04:44] LABS: Basophils % 0.1 %; Hematocrit 39.9 % (35.3-44.9); Hemoglobin 13.3 g/dL (11.5-15.4); Immature Granulocytes % 0.5 % (0-4); Lymphocytes # 0.6 K/mcL (0.6-4.6); Lymphocytes % 7.3 %; Mean Corpuscular HGB Conc 33.3 g/dL (31.6-35.5); Mean Corpuscular Hemoglobin 30.9 pg (28.0-33.3); Mean Corpuscular Volume 92.8 fL (83.0-100.0); Monocytes # 0.1 K/mcL (0.0-1.3); Monocytes % 0.8 %; Neutrophils # 6.9 K/mcL (1.6-8.9); Platelet Count 185 K/mcL (140-400); Red Cell Distribution Width 12.2 % (11.5-14.5); Segmented Neutrophils % 91.3 %
[2017-07-27 05:00] LABS: Albumin/Globulin Ratio 0.8 (1.1-2.2); Bilirubin,Total 0.4 mg/dL (0.2-1.2); Globulin 3.8 g/dL (2.4-3.5); Total Protein 6.8 g/dL (6.0-8.3)
[2017-07-27 05:02] LABS: Potassium 4.1 mEq/L (3.5-4.5)
[2017-07-27] MEDS ORDERED: predniSONE 20 MG TABLET PO ONE (07:00)
[2017-07-27] MEDS: Aspirin Enteric Coated 81 MG Tablet PO SCH (08:36)
[2017-07-27] MEDS: *HR* Ticagrelor 90 MG TABLET PO SCH (08:36)
[2017-07-27] MEDS ORDERED: Isosorbide MONOnitrate (24 HR) 30 MG TAB.ER.24H PO SCH (09:00)
[2017-07-27 11:55] VITALS: BP 115/70
--- NOTE | 2017-07-27 12:08 | Discharge Summary ---
Date of Encounter: 07/27/17 Time of Encounter: 12:03 - Discharge Diagnosis (1) Unstable angina Priority: Primary Status: Suspected (2) GERD (gastroesophageal reflux disease) Priority: Secondary Status: Chronic Qualifiers: Esophagitis presence: esophagitis presence not specified Qualified Code(s) : K21.9 - Gastro-esophageal reflux disease without esophagitis (3) RLS (restless legs syndrome) Priority: Secondary Status: Chronic (4) CKD (chronic kidney disease) stage 3, GFR 30-59 ml/min Priority: Secondary Status: Chronic (5) Obesity (BMI 35.0-39.9 without comorbidity) Priority: Secondary Status: Chronic (6) Anxiety Priority: Secondary Status: Acute - Discharge Medications Prescriptions: Atorvastatin [Lipitor] 10 mg PO HS #30 tablet Isosorbide MONOnitrate (24 HR) [Imdur] 30 mg PO DAILY #30 tab.er.24h Metoprolol [Lopressor] 12.5 mg PO BID #30 tablet Tramadol HCl [Ultram] 150 mg PO DAILY #90 tab Home Medications: Dexlansoprazole [Dexilant] 60 mg PO DAILY 10/18/16 [History] Tizanidine HCl [Zanaflex] 2 mg PO TID PRN #15 cap 10/19/16 [Rx] Albuterol Sulfate [Proair Hfa] 2 puff IH Q4H PRN 12/21/16 [History] Aspirin Enteric Coated [Aspirin EC] 81 mg PO DAILY #30 tablet.dr 12/22/16 [Rx] Nitroglycerin 0.4 mg SL Q5MIN PRN #5 tab.subl 12/22/16 [Rx] Ticagrelor [Brilinta] 90 mg PO BID #60 tablet 12/22/16 [Rx] Atorvastatin [Lipitor] 10 mg PO HS #30 tablet 07/27/17 [Rx] Isosorbide MONOnitrate (24 HR) [Imdur] 30 mg PO DAILY #30 tab.er.24h 07/27/17 [ Rx] Metoprolol [Lopressor] 12.5 mg PO BID #30 tablet 07/27/17 [Rx] Tramadol HCl [Ultram] 150 mg PO DAILY #90 tab 07/27/17 [Rx] Allergies/Adverse Reactions: 3 Allergy/AdvReac Type Severity Reaction Status Date / Time iodine Allergy Hives Verified 11/09/16 11:47 Procedures/tests Complete & Pending: Procedures Performed prior 72 hours Category Date Time Status CL Cardiac Catheterization [CL] Routine Housing Liaison 07/26/17 16:20 Ordered EV echocardiogram Routine Y 07/25/17 10:26 Completed - Notes to Outpatient Provider Pt has significant anxiety and depression. Low dose Paxil prescribed. Date of admission: 07/25/17 09:13 Primary care physician: Constanza Keller CNP Consults: 07/26/17 10:21 Consult to Cardiology [CONS] Routine Comment: per hospitalist Consulting Provider: Cardiology Eve Reason for Consult: chest pain Time Notified: 08:00 Call Completed: Yes Discharging clinician: Efren Curtis Anticipated date of discharge: 07/27/17 - Patient Status Disposition: Home, Self-Care Condition: Good Functional capacity at discharge: independent ambulation Overall status at discharge: patient is progressing back to baseline - Discharge Instructions Instructions: Chest Pain (DC) Follow Up With: Constanza Keller CNP [Primary Care Provider] - - Diet and Activity Activity: resume usual activities as tolerated Diet: advance to your usual diet Hospital course: Ms. Witt is a 62 year old female with hx of CAD s/p stent and restless leg syndrome presented to ED with chest pain. She had been seen Dr. Downs as outpatient and started on meds with plans for cardiac cath. She developed chest pain the morning of admission and came to ED. She was placed in observation for further evaluation. Ms Witt was placed in observation. She was continued on usual medications and seen by cardiology. On 07/26 she underwent cardiac cath and no intervention was needed. Meds were adjusted and she was monitored overnight. On 07/27 she was feeling at baseline. She was afebrile with stable vitals and was felt ready for discharge home. She relayed that she felt a lot of her symptoms are stress related and anxiety. She will be started on low dose Paxil with PCP follow up. - Time Spent with Patient Total time spent providing and/or coordinating discharge services: - Constitutional Vitals: Temp Pulse Resp BP Pulse Ox 98.2 F 84 16 115/70 94 07/27/17 11:54 07/27/17 11:54 07/27/17 11:54 07/27/17 11:54 07/27/17 11:54 General appearance: Present: cooperative, A&O X 3, pleasant, obese, answers questions appropriately - Head Head exam: Present: normocephalic - Eye Eye exam: Present: EOMI, conjuntiva pink - ENT ENT exam: Present: mucous membranes dry - Respiratory Respiratory exam: Present: decreased breath sounds, CTAB. Absent: wheezes - Cardiovascular Cardiovascular exam: Present: RRR. Absent: tachycardia - GI/Abdominal GI/Abdominal exam: Present: soft. Absent: tenderness - Extremities Exam Extremities exam: Present: warm. Absent: tenderness - Neurological Exam Neurological exam: Present: alert, oriented X3, no focal deficits - Skin Skin exam: Present: dry, warm. Absent: rash
[2017-07-27] MEDS ORDERED: traMADol 50 MG TABLET PO SCH (13:30)
== END 2017-07-27 13:53 | disposition home or self-care (01) ==
LOC: EMEROO 07:39 → 3BNU 07:39 → SUATTDRO 09:13 → 3BNU 10:28
PROVIDERS: ADMIT Internal Medicine; ATTEND Internal Medicine

== ENCOUNTER 2019-05-09 19:16 | Inpatient (IN) ==
[2019-05-09] MEDS ORDERED: Isovue-370 500 ML BOTTLE IVP ONE (20:52)
[2019-05-09] MEDS ORDERED: methylPREDNISolone 125 MG/2 ML VIAL IVP ONE (20:53)
[2019-05-09 21:06] LABS: Basophils # 0.1 K/mcL (0.0-0.2); Basophils % 0.9 %; Eosinophils # 0.3 K/mcL (0.0-0.6); Eosinophils % 3.3 %; Hematocrit 40.6 % (35.3-44.9); Hemoglobin 13.5 g/dL (11.5-15.4); Immature Granulocytes % 0.7 % (0-4); Lymphocytes # 1.8 K/mcL (0.6-4.6); Lymphocytes % 23.9 %; Mean Corpuscular HGB Conc 33.3 g/dL (31.6-35.5); Mean Corpuscular Hemoglobin 31.3 pg (28.0-33.3); Mean Corpuscular Volume 94.2 fL (83.0-100.0); Monocytes # 0.5 K/mcL (0.0-1.3); Monocytes % 6.2 %; Platelet Count 170 K/mcL (140-400); Red Blood Count 4.31 M/mcL (3.82-4.97); Red Cell Distribution Width 13.2 % (11.5-14.5); White Blood Count 7.6 K/mcL (4.3-11.1)
--- NOTE | 2019-05-09 21:12 | Emergency Department Note ---
Disposition Clinical Impression: Chest pain Qualifiers: Chest pain type: unspecified Qualified Code(s): R07.9 - Chest pain, unspecified Disposition: Still a Patient Referrals: NONE,PCP [Non-Partnered Physician] - Forms: ED Satisfaction Letter Time of Disposition: 22:20 Chest Pain HPI - General Chief Complaint: ED Chest Pain Stated Complaint: Chest Pain SoB Time Seen by Provider: 05/09/19 19:25 Source: patient Mode of arrival: private vehicle Limitations: no limitations Vital Signs Reviewed: Yes Nursing Notes Reviewed: Yes - History of Present Illness HPI Narrative: 64-year-old female with a past medical history of coronary artery disease with previous [place] 2 years ago that states that she has had chest pain today that just was not seizing. She says that normally it only lasts for a little while and then it stops but today it has been going on all day and is associated with nausea, lightheadedness, shortness of breath, weakness. Severity scale (1-10): 0 - Related Data Home Medications Medication Instructions Recorded Confirmed Dexlansoprazole [Dexilant] 60 mg PO DAILY 10/18/16 07/25/17 Albuterol Sulfate [Proair Hfa] 2 puff IH Q4H PRN 12/21/16 07/25/17 Previous Rx's Medication Instructions Recorded Tizanidine HCl [Zanaflex] 2 mg PO TID PRN #15 cap 10/19/16 Aspirin Enteric Coated [Aspirin EC] 81 mg PO DAILY #30 tablet. 12/22/16 Nitroglycerin 0.4 mg SL Q5MIN PRN #5 tab.subl 12/22/16 Ticagrelor [Brilinta] 90 mg PO BID #60 tablet 12/22/16 Atorvastatin [Lipitor] 10 mg PO HS #30 tablet 07/27/17 Isosorbide MONOnitrate (24 HR) 30 mg PO DAILY #30 tab.er.24h 07/27/17 [Imdur] Metoprolol [Lopressor] 12.5 mg PO BID #30 tablet 07/27/17 Tramadol HCl [Ultram] 150 mg PO DAILY #90 tab 07/27/17 Paroxetine HCl [Paxil] 10 mg PO DAILY #30 tablet 07/29/17 Allergies Allergy/AdvReac Type Severity Reaction Status Date / Time Iodinated Contrast Media Allergy Rash Verified 05/09/19 19:35 Review of Systems: In addition to that documented in the HPI above, the additional ROS was obtained: Constitutional: Reports both subjective fevers and chills Eyes: Denies vision changes ENMT: Denies sore throat CV: Reports chest pain Resp: Reports SOB, cough, increased sputum production GI: Denies vomiting or diarrhea Reports nausea : Denies painful urination MSK: Denies recent trauma Skin: Denies new rashes Neuro: Denies new numbness or tingling or weakness Reports lightheadedness Chest Pain PMH - Past Medical History Medical history: Reports: asthma, GERD, myocardial infarction, other Surgical history: Reports: orthopedic, other (Partial knee replacement in left knee) Psychiatric history: Reports: anxiety, depression - Social History Smoking Status: Former smoker Alcohol use: Reports: none Drug use: Reports: none Physical Exam General: A&O x 3. No acute distress. Well developed, well nourished. Head: atraumatic, normocephalic. ENT: No conjunctival injection, no scleral icterus. PERRLA. EOMI. Oropharynx non- erythematous. mucous membranes tacky. Neuro: No focal deficits, no speech deficit, no facial droop, mentating well. Pulm: Lungs have expiratory wheezes that clear with coughing. No focal consolidation, rales, ronchi. Cardio: Irregular heart rate with occasional early beats. Not consistently irregular. Chest not tender to palpation. Abd: Soft, non-distended. Normoactive bowel sounds. Non-tender to palpation. No guarding. Non rigid. Extremities: Radial pulses 2+ nasrin, dorsalis pedis/posterior tibialis 2+ nasrin. Mild, non-pitting LE edema. No cyanosis, clubbing. Skin: warm, dry, intact. No rashes. Psych: Appropriate mood and affect. Answers questions appropriately. Cooperative with exam. - General Limitations: no limitations General appearance: alert Course Vital Signs Temperature 98.4 F 05/09/19 19:35 Pulse Rate 85 05/09/19 19:35 Respiratory Rate 20 05/09/19 19:35 Blood Pressure 177/101 05/09/19 19:35 O2 Sat by Pulse Oximetry 91 05/09/19 19:35 Temperature 98.4 F 05/09/19 19:35 Pulse Rate 85 05/09/19 19:35 Respiratory Rate 20 05/09/19 19:35 Blood Pressure 177/101 05/09/19 19:35 O2 Sat by Pulse Oximetry 93 05/09/19 22:09 Chest Pain - MDM Narrative Medical decision making narrative: 64F with Pmhx of prior [place] 2 years ago that is still smoking a little every day, that complaints of chest pain, shortness of breath, weakness that has been going on today. Pt was signed out to Dr. Angel Rashid and Dr. Clayton Hutton. Please see their notes for results of the workup and disposition. - Medical Records Medical records reviewed: Yes I reviewed the patient's medical records. - Lab Data Lab results reviewed: Yes I reviewed the patient's lab results. Result diagrams: 05/09/19 20:53 05/09/19 20:53 Lab Results 05/09/19 05/09/19 05/09/19 Range/Units 20:53 20:53 20:53 WBC 7.6 (4.3-11.1) K/mcL RBC 4.31 (3.82-4.97) M/mcL Hgb 13.5 (11.5-15.4) g/dL Hct 40.6 (35.3-44.9) % MCV 94.2 (83.0-100.0) fL MCH 31.3 (28.0-33.3) pg MCHC 33.3 (31.6-35.5) g/dL RDW 13.2 (11.5-14.5) % Plt Count 170 (140-400) K/mcL MPV 11.0 (9.4-12.4) fL Immature Gran % 0.7 (0-4) % Seg Neutrophils % 65.0 % Lymphocytes % 23.9 % Monocytes % 6.2 % Eosinophils % 3.3 % Basophils % 0.9 % Neutrophils # 5.0 (1.6-8.9) K/mcL Lymphocytes # 1.8 (0.6-4.6) K/mcL Monocytes # 0.5 (0.0-1.3) K/mcL Eosinophils # 0.3 (0.0-0.6) K/mcL Basophils # 0.1 (0.0-0.2) K/mcL PT 12.5 H (9.4-12.1) Seconds INR 1.1 APTT 21.8 L (26.0-36.0) Seconds Sodium 141 (136-145) mEq/L Potassium 3.3 L (3.5-5.1) mEq/L Chloride 109 H (98-107) mEq/L Carbon Dioxide 22 L (23-29) mEq/L BUN 15 (8-23) mg/dL Creatinine 1.00 (0.60-1.20) mg/dL Est GFR ( Amer) > 60 (> 60) Est GFR (Non-Af Amer) 56 L (> 60) BUN/Creatinine Ratio 15 (6-26) Glucose 109 H (70-105) mg/dL Calculated Osmolality 293 (280-300) Calcium 9.1 (8.6-10.3) mg/dL Troponin I 0.03 (< 0.04) ng/mL Heart Score - Score History: Moderately Suspicious EKG: Non Specific repolarisation Disturbance Age: 45-65 Risk Factors: Equal/Greater than 3 risk factor or history of atherosclerotic disease Troponin: Less than normal limit HEART Score Total: 5 Attestation Statement - Attestation Attestation: I, Abdi Dennis, examined this patient and my medical decision-making was reviewed with the MANAGER DIABETES/PA/Advanced Practice Nurse/Resident Physician. I agree with the documented findings, disposition and treatment plan as described except to the extent set forth below. 64-year-old female presents emergency Department with concerns of chest pain. Patient states the pain radiates to her back. She describes it as a pressure that feels similar to her previous [place]. She has a history of a stent being placed [address] Downs. She is not currently taking Plavix or aspirin. Patient denies fever, chills, nausea, vomiting. Initial laboratory evaluation was negative for elevated troponin other acute abnormality. EKG did not show evidence of STEMI or other dysrhythmia.I reviewed the EKG with the resident and agree with the interpretation. Patient care was transferred to Dr. Sarah Dennis pending CTA of the chest to rule out dissection, reevaluation and disposition.
[2019-05-09 21:14] LABS: INR 1.1; Prothrombin Time 12.5 Seconds (9.4-12.1)
[2019-05-09 21:16] LABS: Activated Partial Thrombo Time 21.8 Seconds (26.0-36.0)
[2019-05-09 21:25] LABS: BUN/Creatinine Ratio 15 (6-26); Blood Urea Nitrogen 15 mg/dL (8-23); Calcium 9.1 mg/dL (8.6-10.3); Carbon Dioxide 22 mEq/L (23-29); Chloride 109 mEq/L (98-107); Glucose 109 mg/dL (70-105); Osmolality,Calculated 293 (280-300); Potassium 3.3 mEq/L (3.5-5.1); Sodium 141 mEq/L (136-145); eGFR For African Americans > 60 (> 60); eGFR For Non-African Americans 56 (> 60)
[2019-05-09 21:26] LABS: Troponin I 0.03 ng/mL (< 0.04)
--- NOTE | 2019-05-09 22:27 | Emergency Department Note ---
Disposition Clinical Impression: Atherosclerotic plaque Chest pain Qualifiers: Chest pain type: unspecified Qualified Code(s): R07.9 - Chest pain, unspecified Abdominal aortic aneurysm Qualifiers: Presence of rupture: without rupture Qualified Code(s): I71.4 - Abdominal aortic aneurysm, without rupture Disposition: Admitted As Inpatient Condition: Good Time of Disposition: 23:35 General Adult HPI - General Chief complaint: ED Chest Pain Stated complaint: Chest Pain SoB Time Seen by Provider: 05/09/19 19:25 Source: patient Mode of arrival: private vehicle Limitations: no limitations - History of Present Illness Pain Scale: 0 - Related Data Home Medications Medication Instructions Recorded Confirmed Dexlansoprazole [Dexilant] 60 mg PO DAILY 10/18/16 07/25/17 Albuterol Sulfate [Proair Hfa] 2 puff IH Q4H PRN 12/21/16 07/25/17 Previous Rx's Medication Instructions Recorded Tizanidine HCl [Zanaflex] 2 mg PO TID PRN #15 cap 10/19/16 Aspirin Enteric Coated [Aspirin EC] 81 mg PO DAILY #30 tablet.dr 12/22/16 Nitroglycerin 0.4 mg SL Q5MIN PRN #5 tab.subl 12/22/16 Ticagrelor [Brilinta] 90 mg PO BID #60 tablet 12/22/16 Atorvastatin [Lipitor] 10 mg PO HS #30 tablet 07/27/17 Isosorbide MONOnitrate (24 HR) 30 mg PO DAILY #30 tab.er.24h 07/27/17 [Imdur] Metoprolol [Lopressor] 12.5 mg PO BID #30 tablet 07/27/17 Tramadol HCl [Ultram] 150 mg PO DAILY #90 tab 07/27/17 Paroxetine HCl [Paxil] 10 mg PO DAILY #30 tablet 07/29/17 Allergies Allergy/AdvReac Type Severity Reaction Status Date / Time Iodinated Contrast Media Allergy Rash Verified 05/09/19 19:35 Past Medical History - Past Medical History Medical history: Reports: asthma, GERD, myocardial infarction, other Surgical history: Reports: orthopedic, other (Partial knee replacement in left knee) Psychiatric history: Reports: anxiety, depression - Social History Smoking Status: Former smoker Smokeless Tobacco Status: No Alcohol use: Reports: none Drug use: Reports: none Physical Exam - General Limitations: no limitations General appearance: alert Course - Reevaluation(s) Reevaluation #1: accepted sign out from Dr. Abdi Dennis. plan is to followup on CTA dissection and is negative to admit to [facility] for CP r/o ACS, and is positive to involve appropaite specialities and possibly transfer Time: 22:27 - Consultations Consultation #1: discussed case with Dr. Alfonso and he accepts patinet for admission. Time: 23:34 Vital Signs Temperature 98.4 F 05/09/19 19:35 Pulse Rate 85 05/09/19 19:35 Respiratory Rate 20 05/09/19 19:35 Blood Pressure 177/101 05/09/19 19:35 O2 Sat by Pulse Oximetry 91 05/09/19 19:35 Temperature 98.4 F 05/09/19 19:35 Pulse Rate 71 05/09/19 23:49 Respiratory Rate 20 05/09/19 23:49 Blood Pressure 164/102 05/09/19 23:49 O2 Sat by Pulse Oximetry 94 05/09/19 23:49 Oxygen Delivery Oxygen Delivery Nasal Cannula Medical Decision Making - Lab Data Result diagrams: 05/09/19 20:53 05/09/19 20:53 Lab Results 05/09/19 05/09/19 05/09/19 Range/Units 20:53 20:53 20:53 WBC 7.6 (4.3-11.1) K/mcL RBC 4.31 (3.82-4.97) M/mcL Hgb 13.5 (11.5-15.4) g/dL Hct 40.6 (35.3-44.9) % MCV 94.2 (83.0-100.0) fL MCH 31.3 (28.0-33.3) pg MCHC 33.3 (31.6-35.5) g/dL RDW 13.2 (11.5-14.5) % Plt Count 170 (140-400) K/mcL MPV 11.0 (9.4-12.4) fL Immature Gran % 0.7 (0-4) % Seg Neutrophils % 65.0 % Lymphocytes % 23.9 % Monocytes % 6.2 % Eosinophils % 3.3 % Basophils % 0.9 % Neutrophils # 5.0 (1.6-8.9) K/mcL Lymphocytes # 1.8 (0.6-4.6) K/mcL Monocytes # 0.5 (0.0-1.3) K/mcL Eosinophils # 0.3 (0.0-0.6) K/mcL Basophils # 0.1 (0.0-0.2) K/mcL PT 12.5 H (9.4-12.1) Seconds INR 1.1 APTT 21.8 L (26.0-36.0) Seconds Sodium 141 (136-145) mEq/L Potassium 3.3 L (3.5-5.1) mEq/L Chloride 109 H (98-107) mEq/L Carbon Dioxide 22 L (23-29) mEq/L BUN 15 (8-23) mg/dL Creatinine 1.00 (0.60-1.20) mg/dL Est GFR ( Amer) > 60 (> 60) Est GFR (Non-Af Amer) 56 L (> 60) BUN/Creatinine Ratio 15 (6-26) Glucose 109 H (70-105) mg/dL Calculated Osmolality 293 (280-300) Calcium 9.1 (8.6-10.3) mg/dL Troponin I 0.03 (< 0.04) ng/mL
[2019-05-09] MEDS ORDERED: *HR* Labetalol 20 MG/4 ML SYRINGE IVP ONE (23:32)
[2019-05-09] MEDS ORDERED: Aspirin 325 MG TABLET PO ONE (23:32)
[2019-05-10] MEDS ORDERED: Nitroglycerin 0.4 MG TAB.SUBL SL PRN (00:22)
[2019-05-10] MEDS ORDERED: traMADol 50 MG TABLET PO PRN (00:27)
[2019-05-10] MEDS ORDERED: *HR* OxyCODONE Immed Rel 5 MG TABLET PO PRN (00:27)
--- NOTE | 2019-05-10 00:47 | Internal Med History&Physical ---
Date of Encounter: 05/10/19 Time of Encounter: 00:46 Internal Medicine - H&P: HPI Chief complaint: chest pain Admitted From: Home Plans for Post Hospital Care: Home History of present illness: Georgina Witt is a 64 year old obese woman active smoker with obstructive lung disease, obstructive sleep apnea and coronary artery disease who had one stent placed to her RCA in December 2016 and underwent a repeat LHC in July 2017 due to ongoing chest pain and deemed to have only mild 2 vessel disease presenting to the emergency room complaining of increasing chest discomfort that has been present for the past week but notably worsened today. He describes it as a hurt and pressure that is midsternal in location and radiates to her back accompanied by dyspnea. She has nitroglycerin at home but she has never taken it. Her EKG showed normal sinus rhythm. A dissection protocol CT was done given her description of the pain associated with her hypertensive state and this was revealing of an irregular atherosclerotic plaque at the aortic arch with mild ulceration that seems to have increased in size when compared to previous exam, a mild aneurysmal dilatation of the abdominal aorta 2.9 cm and emphysematous lung changes. She was given a loading dose of aspirin and is admitted for further evaluation. Vitals: Reviewed General: Obese white woman lying in bed in NAD Skin: Warm and dry. HEENT: Moist mucous membranes. No conjunctivae pallor. Neck: No lymphadenopathy. No JVD. No carotid bruits. No palpable thyroid. Chest: Diminished thoracic expansion. Reduced breath sounds but no wheezing, r ales or rhonchi. Heart: Normal S1 & S2; rhythmic. No rubs or murmurs. Abdomen: Non-distended, soft and non-tender to palpation. No peritoneal reaction. Extremities: No clubbing, cyanosis or edema. Normal distal pulses. Neurological: Awake, alert and oriented to person, place and time. No focal d eficits. Psych: Affect appropriate. Assessment/Plan 1. Chest pain: PE/dissection ruled out on CT. Given her underlying cardic history and not being on any antiplatelet therapy seemingly despite this, one remains concerned for a coronary etiology. Will monitor overnight on telemetry, trend troponins and schedule her for a stress test this morning. Start ASA 81mg daily. 2. COPD: The patient has a new oxygen requirement and seems winded with mild exertion. She continues to smell of cigarette smoke and is advised on the detriment of this habit. She was given IV steroids in the ER. Will order neb ulizer therapy to be given overnight. Review of prior records demonstrate PFT suggestion of COPD and the CT scan shows emphysematous changes. She is already on LABA/ICS. 3. Hypertension: Poorly controlled. She apparently is not on any medications for this. She was given a dose of labetalol for temporary control. She will need to be started on oral therapy either during admission or by her PCP to ensure adequate follow up and monitoring. 4. MARCO: Recommended previously to have CPAP titration but it does not appear she followed up with this. Weight loss advised in the interim. 5. Tobacco use: 5 minutes were spent counseling and educating the patient on this habit. registered nurse surgical services and resources were made available. 6. Aortic atherosclerotic disease: Seen to ulcerated plaques, thankfully not p enetrating, in addition to an aneurysmal formation. She was educated on what these entities are and her risk factors that need to be controlled such as hypertension and smoking to prevent catastrophic consequences down the line. Past Med Surg Social Fam HX - Past Medical History Medical history: asthma, GERD, myocardial infarction, other Psychiatric history: anxiety, depression - Past Surgical History Surgical History: orthopedic, other (Partial knee replacement in left knee) Additional surgical history: partial left knee replacement. - Social History Smoking Status: Former smoker Smokeless Tobacco Status: No Alcohol use: none Drug use: none - Family History Father Family Member Ethnicity: Non- Living Status: Hx Family Cardiac Disorders: Yes (CAD, Stroke, Brain aneurysm) Hx Family Respiratory Disorders: No Hx Family Cancer: No Hx Family GI Disorders: No Hx Family Endocrine Disorder: No Hx Family Neuromuscular Disorders: No Hx Family Neurologic Disorders: No Hx Family HEENT Disorders: No Hx Family Autoimmune Disorders: No Mother Family Member Ethnicity: Non- Living Status: Hx Family Cardiac Disorders: Yes (CVA) Hx Family Respiratory Disorders: No Hx Family Cancer: Yes (colon cancer) Hx Family GI Disorders: No Hx Family Endocrine Disorder: No Hx Family Neuromuscular Disorders: No Hx Family Neurologic Disorders: No Hx Family HEENT Disorders: No Hx Family Autoimmune Disorders: No Sister Family Member Ethnicity: Non- Living Status: Still Living Hx Family Cancer: Yes (Breast) Brother Family Member Ethnicity: Non- Living Status: Still Living Internal Medicine - H&P: Meds Dexlansoprazole [Dexilant] 60 mg PO DAILY 10/18/16 [History] Aspirin Enteric Coated [Aspirin EC] 81 mg PO DAILY #30 tablet.dr 12/22/16 [Rx] Nitroglycerin 0.4 mg SL Q5MIN PRN #5 tab.subl 12/22/16 [Rx] Acetaminophen w/Cod 300-30 mg [Tylenol w/Codeine #3] 1 each PO BID 05/10/19 [History] Fluticasone/Salmeterol [Advair 100-50 Diskus] 1 each IH BID 05/10/19 [History] hydrOXYzine HCl [Hydroxyzine HCl] 25 mg PO BID 05/10/19 [History] Allergy/AdvReac Type Severity Reaction Status Date / Time Iodinated Contrast Media Allergy Rash Verified 05/09/19 19:35 All Systems PM: A 10-system review of systems was performed and is negative for pertinent findings except as documented above in the HPI. - Constitutional Vitals: Temp Pulse Resp BP Pulse Ox 97.9 F 76 16 162/86 90 05/10/19 00:35 05/10/19 00:35 05/10/19 00:35 05/10/19 00:35 05/10/19 00:35 Exam: . Internal Med - H&P Results - Labs CBC & Chem 7: 05/09/19 20:53 05/09/19 20:53 Labs: Short CBC 05/09/19 Range/Units 20:53 WBC 7.6 (4.3-11.1) K/mcL Hgb 13.5 (11.5-15.4) g/dL Hct 40.6 (35.3-44.9) % Plt Count 170 (140-400) K/mcL Neutrophils # 5.0 (1.6-8.9) K/mcL BMP 05/09/19 20:53 Sodium 141 Potassium 3.3 L Chloride 109 H Carbon Dioxide 22 L BUN 15 Creatinine 1.00 Glucose 109 H Calcium 9.1 Cardiac Enzymes 05/09/19 Range/Units 20:53 Troponin I 0.03 (< 0.04) ng/mL - Impressions ITS Impressions Chest X-Ray 05/09/19 19:39 IMPRESSION: Low lung volumes. No acute cardiopulmonary disease. D/ / Faraz Lozano MD / Faraz Lozano MD Interpreting Provider: Faraz Lozano MD Dissection 05/09/19 20:52 IMPRESSION: No evidence of thoracic or abdominal aortic dissection. There is irregular atherosclerotic plaque seen at the aortic arch, with mild ulceration along the anterior and lateral margin. That ulceration may have mildly increased in size when compared to the previous exam, but there is no evidence of leakage or dissection. Mild bulging along the undersurface of the aortic arch is also unchanged when compared to the previous exam. Again, no evidence of leakage. There is mild aneurysmal dilation of the abdominal aorta at 2.9 cm. Recommendations are below. There are mildly enlarged mediastinal lymph nodes which have increased in size when compared to the previous exam. These may be reactive, but a follow-up chest CT in approximately 3-6 months is recommended to ensure stability or resolution. Emphysema noted. Punctate peripheral nodules are seen within both lungs, similar when compared to the previous exam. These suggest small airways disease, possibly respiratory bronchiolitis if the patient has a history of smoking. Subtle interlobular septal thickening within the lungs bilaterally. Correlate with any clinical evidence of interstitial edema. Small hiatal hernia with mild mural thickening of the lower esophagus. Correlate with clinical evidence of esophagitis. Mild diverticulosis of the large bowel without CT evidence of diverticulitis. RECOMMENDATIONS: 2.9 cm abdominal aortic aneurysm. Recommend follow-up every 5 years. Reference: J Am Taj Radiol 2013;10:789-794. D/ / Troy Espinoza MD / Troy Espinoza MD Interpreting Provider: Troy Espinoza MD - Time Spent With Patient Total time spent is greater than 50% in coordination of care (as documented) at patient's floor/unit and/or counseling patient:
[2019-05-10] MEDS: Ipratropium/Albuterol Neb 3 ML IH SCH ×5 (04:05→22:05)
[2019-05-10] MEDS: Acetaminophen 325 MG TABLET PO PRN ×2 (06:03→16:30)
[2019-05-10] MEDS: *HR* Heparin 5,000 UNIT/ML VIAL SQ SCH ×2 (06:04→18:10)
[2019-05-10] MEDS ORDERED: Regadenoson 0.4 MG/5 ML SYRINGE IVP ONE (06:55)
[2019-05-10] MEDS: Budesonide/Formoterol 80/4.5 1 PUFF INH IH SCH ×2 (07:40→22:05)
--- NOTE | 2019-05-10 10:17 | Event Note ---
Date of Encounter: 05/10/19 Time of Encounter: 10:09 Patient will undergo 2 day stress- Due to the holiday the 2 half of the 2 day stress will not be completed until Saturday .
[2019-05-10] MEDS: Aspirin Enteric Coated 81 MG Tablet PO SCH (11:59)
[2019-05-10] MEDS ORDERED: Albuterol 2.5 MG/3 ML NEBULIZER IH PRN (18:19)
[2019-05-10] MEDS: hydrOXYzine pamoate 25 MG CAPSULE PO SCH (21:36)
[2019-05-11] MEDS: Ipratropium/Albuterol Neb 3 ML IH SCH ×4 (04:15→22:55)
[2019-05-11] MEDS: *HR* Heparin 5,000 UNIT/ML VIAL SQ SCH ×2 (05:38→18:36)
[2019-05-11] MEDS: hydrOXYzine pamoate 25 MG CAPSULE PO SCH ×2 (08:01→21:40)
[2019-05-11] MEDS: Aspirin Enteric Coated 81 MG Tablet PO SCH (08:01)
[2019-05-11] MEDS ORDERED: Aspirin Enteric Coated 81 MG Tablet PO SCH (09:00)
[2019-05-11] MEDS ORDERED: NON-FORMULARY MEDICATION 1 EACH EACH (Fluticasone Propion/Salmeterol [Wixela 250-50 Inhub] IH SCH (09:00)
[2019-05-11] MEDS: Cholecalciferol (D-3) 1,000 UNIT (25MCG) TABLET PO SCH (09:44)
[2019-05-11] MEDS: Budesonide/Formoterol 80/4.5 1 PUFF INH IH SCH ×2 (10:26→22:55)
--- NOTE | 2019-05-11 11:47 | Internal Med Progress Note ---
Hospitalist Progress Note - Encounter Date of Encounter: 05/11/19 Time of Encounter: 11:44 - Subjective Interval History: Georgina Witt is a 64 year old obese woman active smoker with obstructive lung disease, obstructive sleep apnea and coronary artery disease who had one stent placed to her RCA in December 2016 and underwent a repeat LHC in July 2017 due to ongoing chest pain and deemed to have only mild 2 vessel disease presenting to the emergency room complaining of increasing chest discomfort that has been present for the past week but notably worsened today. He describes it as a hurt and pressure that is midsternal in location and radiates to her back accompanied by dyspnea. She has nitroglycerin at home but she has never taken it. Her EKG showed normal sinus rhythm. A dissection protocol CT was done given her description of the pain associated with her hypertensive state and this was revealing of an irregular atherosclerotic plaque at the aortic arch with mild ulceration that seems to have increased in size when compared to previous exam, a mild aneurysmal dilatation of the abdominal aorta 2.9 cm and emphysematous lung changes. She was given a loading dose of aspirin and is admitted for further evaluation. Serial troponin was negative, EKG has no acute ST-T depression/elevation. Echocardiogram showed preserved ejection fraction with LV, severe pulmonary hypertension. A stress test was negative for ischemia or infarction. Patient seen and examined in the room. She reported absence of chest pain, pal pitation, syncope, lightheadedness, or cough. She reported intermittent chest pressure, severe dyspnea on exertion overnight. She does not uses oxygen at home. - Exam Vitals: Temp Pulse Resp BP Pulse Ox 98.2 F 73 18 154/95 96 05/11/19 07:10 05/11/19 07:10 05/11/19 10:26 05/11/19 07:59 05/11/19 10:26 Exam: PHYSICAL EXAMINATION: GENERAL APPEARANCE: The patient is alert, oriented and in no acute distress. HEENT: Head is normocephalic. The sinuses are nontender. Pupils are equal and reactive. The nares are patent. Oropharynx clear without lesions. NECK: Supple without lymphadenopathy. HEART: Regular rate and rhythm. LUNGS: No crackles or wheezes are heard. ABDOMEN: Soft, nontender, nondistended with good bowel sounds heard. Inguinal area is normal. EXTREMITIES: Without cyanosis, clubbing or edema. NEUROLOGICAL: Gross nonfocal. SKIN: Warm and dry without any rash. - Assessment and Plan (1) Chest pain Current Visit: Yes Status: Resolved Assessment and Plan: Serial troponin was negative, EKG has no acute ischemic change, echocardiogram showed preserved LV ejection fraction with severe pulmonary hypertension. Stress test was negative for ischemia or infarct. CTA of chest and abdomen showed aortic arthrosclerosis with mild ulceration, mild abdominal aortic aneurysm, no PE or aortic dissection. Patient chest pain has resolved this morning. (2) COPD (chronic obstructive pulmonary disease) Current Visit: No Status: Chronic Assessment and Plan: She has history of COPD and she is a active smoker. She reported severe dyspnea on exertion with urination. She does not use oxygen at home. She uses CPAP for sleep apnea. She also reported history of anxiety. We will perform a 6 minute walking study. Continue medications for COPD. At this point, there is no evidence for COPD exacerbation. (3) Tobacco abuse Current Visit: No Status: Chronic Assessment and Plan: Smoking cessation educated. (4) Obesity (BMI 35.0-39.9 without comorbidity) Current Visit: No Status: Chronic Assessment and Plan: Weight control discussed with patient. (5) Anxiety Current Visit: No Status: Acute Assessment and Plan: Continue home medication. (6) Abdominal aortic aneurysm Current Visit: Yes Status: Acute Assessment and Plan: Outpatient follow-up. (7) Atherosclerotic plaque Current Visit: Yes Status: Acute Assessment and Plan: currently on aspirin, will increase the dose of statins to high strength. Smoking sensation reiterated. (8) DVT prophylaxis Current Visit: Yes Status: Acute Assessment and Plan: Heparin subcutaneous. - Time Spent with Patient Total time spent is greater than 50% in coordination of care (as documented) at patient's floor/unit and/or counseling patient: Greater than 35 minutes Plan of Care Discussed with: patient Internal Medicine: Result - Labs CBC & Chem 7: 05/09/19 20:53 05/09/19 20:53 - ABG Interpretation ABG results: PT/INR, D-dimer PT 12.5 Seconds (9.4-12.1) H 05/09/19 20:53 - Impressions Impressions Echocardiogram 05/10/19 00:23 Impressions: LVEF 60%. Normal LV chamber size, wall thickness and function. Mild left ventricular diastolic dysfunction. Mildly dilated right ventricle with normal function. Severe pulmonary hypertension. Estimated RVSP 59 mmHg. No significant valvular dysfunction. Left Ventricular Wall Motion: Rest Echo Findings All wall segments showed normal motion. Findings: Study Quality * Technically sub-optimal due to poor echocardiographic windows. ECG Findings * Normal sinus rhythm. Left Ventricle * LVEF 60%. * Normal LV chamber size, wall thickness and function. * Mild left ventricular diastolic dysfunction. Right Ventricle * Mildly dilated right ventricle with normal function. Left Atrium * Mildly dilated left atrium. Right Atrium * Moderately dilated right atrium. Interatrial Septum * Interatrial septum not well evaluated. Aortic Valve * Aortic valve not well visualized. * No aortic regurgitation. * No aortic stenosis. Mitral Valve * Normal mitral valve structure and function. * No mitral regurgitation. * No mitral stenosis. Tricuspid Valve * Normal tricuspid valve structure and function. * Trace tricuspid regurgitation. * Severe pulmonary hypertension. Pulmonic Valve * Normal pulmonic valve structure and function. * No pulmonic regurgitation. Aorta * Normally sized aortic root. Pericardium * The pericardium appears normal. IVC * Normal IVC dimensions and inspiratory collapse. Pulmonary Artery * Normal visualized portions of the main pulmonary artery. Consult Discharge Plan - Plan Referrals: Constanza Keller, [employer] [Primary Care Provider] - (1) Chest pain Qualifiers: Chest pain type: chest pain due to myocardial ischemia Ischemic chest pain type: unspecified angina pectoris type (2) COPD (chronic obstructive pulmonary disease) Qualifiers: COPD type: unspecified COPD Qualified Code(s): J44.9 - Chronic obstructive pulmonary disease, unspecified (6) Abdominal aortic aneurysm Qualifiers: Presence of rupture: without rupture Qualified Code(s): I71.4 - Abdominal aortic aneurysm, without rupture
[2019-05-11] MEDS ORDERED: *HR* Metoprolol 5 MG/5 ML VIAL IVP ONE (21:42)
[2019-05-12] MEDS: Acetaminophen 325 MG TABLET PO PRN (03:19)
[2019-05-12] MEDS: Levalbuterol Neb 1.25 MG/3 ML IH SCH ×4 (03:56→21:18)
[2019-05-12 04:29] LABS: Basophils # 0.1 K/mcL (0.0-0.2); Basophils % 0.9 %; Eosinophils # 0.2 K/mcL (0.0-0.6); Eosinophils % 2.9 %; Hematocrit 36.6 % (35.3-44.9); Immature Granulocytes % 0.6 % (0-4); Lymphocytes # 2.2 K/mcL (0.6-4.6); Lymphocytes % 32.4 %; Mean Corpuscular Hemoglobin 30.2 pg (28.0-33.3); Mean Corpuscular Volume 94.6 fL (83.0-100.0); Mean Platelet Volume 10.8 fL (9.4-12.4); Monocytes # 0.5 K/mcL (0.0-1.3); Monocytes % 6.7 %; Neutrophils # 3.9 K/mcL (1.6-8.9); Platelet Count 181 K/mcL (140-400); Red Blood Count 3.87 M/mcL (3.82-4.97); Red Cell Distribution Width 13.4 % (11.5-14.5); Segmented Neutrophils % 56.5 %; White Blood Count 6.9 K/mcL (4.3-11.1)
[2019-05-12 04:35] LABS: Hemoglobin 11.7 g/dL (11.5-15.4)
[2019-05-12 04:50] LABS: BUN/Creatinine Ratio 23 (6-26); Blood Urea Nitrogen 23 mg/dL (8-23); Calcium 8.6 mg/dL (8.6-10.3); Carbon Dioxide 21 mEq/L (23-29); Chloride 111 mEq/L (98-107); Glucose 96 mg/dL (70-105); Osmolality,Calculated 298 (280-300); Potassium 3.6 mEq/L (3.5-5.1); Sodium 142 mEq/L (136-145); eGFR For African Americans > 60 (> 60); eGFR For Non-African Americans 55 (> 60)
[2019-05-12] MEDS: *HR* Heparin 5,000 UNIT/ML VIAL SQ SCH ×2 (05:46→16:59)
[2019-05-12] MEDS ORDERED: Acetaminophen/Butalbital/CaffeineTABLET PO ONE (07:37)
[2019-05-12] MEDS: Aspirin Enteric Coated 81 MG Tablet PO SCH (08:13)
[2019-05-12] MEDS: Cholecalciferol (D-3) 1,000 UNIT (25MCG) TABLET PO SCH (08:13)
[2019-05-12] MEDS: hydrOXYzine pamoate 25 MG CAPSULE PO SCH ×2 (08:13→19:49)
[2019-05-12] MEDS ORDERED: *HR* Acetaminophen w/Cod 300-30 mg 1 TAB TABLET PO PRN (09:27)
--- NOTE | 2019-05-12 10:36 | Internal Med Progress Note ---
Hospitalist Progress Note - Encounter Date of Encounter: 05/12/19 Time of Encounter: 10:34 - Subjective Interval History: Georgina Witt is a 64 year old obese woman active smoker with obstructive lung disease, obstructive sleep apnea and coronary artery disease who had one stent placed to her RCA in December 2016 and underwent a repeat LHC in July 2017 due to ongoing chest pain and deemed to have only mild 2 vessel disease presenting to the emergency room complaining of increasing chest discomfort that has been present for the past week but notably worsened today. He describes it as a hurt and pressure that is midsternal in location and radiates to her back accompanied by dyspnea. She has nitroglycerin at home but she has never taken it. Her EKG showed normal sinus rhythm. A dissection protocol CT was done given her description of the pain associated with her hypertensive state and this was revealing of an irregular atherosclerotic plaque at the aortic arch with mild ulceration that seems to have increased in size when compared to previous exam, a mild aneurysmal dilatation of the abdominal aorta 2.9 cm and emphysematous lung changes. She was given a loading dose of aspirin and is admitted for further evaluation. Serial troponin was negative, EKG has no acute ST-T depression/elevation. Echocardiogram showed preserved ejection fraction with LV, severe pulmonary hypertension. A stress test was negative for ischemia or infarction. Patient seen and examined in the room. Reported severe headache this morning a nd generalized weakness/malaise. Reported dyspnea on exertion for a week. She reported absence of chest pain, leg swelling, cough with mucus production, or lightheadedness. - Exam Vitals: Temp Pulse Resp BP Pulse Ox 97.6 F 68 16 166/98 93 05/12/19 07:02 05/12/19 07:02 05/12/19 07:02 05/12/19 07:02 05/12/19 07:02 Exam: PHYSICAL EXAMINATION: GENERAL APPEARANCE: The patient is alert, oriented and in no acute distress. HEENT: Head is normocephalic. The sinuses are nontender. Pupils are equal and reactive. The nares are patent. Oropharynx clear without lesions. NECK: Supple without lymphadenopathy. HEART: Regular rate and rhythm. LUNGS: No crackles or wheezes are heard. ABDOMEN: Soft, nontender, nondistended with good bowel sounds heard. Inguinal area is normal. EXTREMITIES: Without cyanosis, clubbing or edema. NEUROLOGICAL: Gross nonfocal. SKIN: Warm and dry without any rash. - Assessment and Plan (1) Chest pain Current Visit: Yes Status: Resolved Assessment and Plan: Serial troponin was negative, EKG has no acute ischemic change, echocardiogram showed preserved LV ejection fraction with severe pulmonary hypertension. Stress test was negative for ischemia or infarct. CTA of chest and abdomen showed aortic arthrosclerosis with mild ulceration, mild abdominal aortic aneurysm, no PE or aortic dissection. Patient chest pain has resolved this morning. (2) COPD (chronic obstructive pulmonary disease) Current Visit: No Status: Chronic Assessment and Plan: She has history of COPD and she is a active smoker. She reported severe dyspnea on exertion with walking. She does not use oxygen at home. She uses CPAP for sleep apnea. She also reported history of anxiety. Continue medications for COPD. At this point, there is no evidence for COPD exacerbation. ECHO reported severe PT, but she does not have clinical manifestation of severe PH such as leg swelling, JVD, or low BP. We will perform a 6 minute walking study. PT/OT consult. (3) Tobacco abuse Current Visit: No Status: Chronic Assessment and Plan: Smoking cessation educated. (4) Obesity (BMI 35.0-39.9 without comorbidity) Current Visit: No Status: Chronic Assessment and Plan: Weight control discussed with patient. (5) Anxiety Current Visit: No Status: Acute Assessment and Plan: Continue home medication. (6) Abdominal aortic aneurysm Current Visit: Yes Status: Acute Assessment and Plan: Outpatient follow-up. (7) Atherosclerotic plaque Current Visit: Yes Status: Acute Assessment and Plan: currently on aspirin and statins in high strength. Smoking sensation reiterated. (8) DVT prophylaxis Current Visit: Yes Status: Acute Assessment and Plan: Heparin subcutaneous. - Time Spent with Patient Total time spent is greater than 50% in coordination of care (as documented) at patient's floor/unit and/or counseling patient: Greater than 35 minutes Plan of Care Discussed with: patient Internal Medicine: Result - Labs CBC & Chem 7: 05/12/19 04:09 05/12/19 04:09 Labs: Short CBC 05/12/19 Range/Units 04:09 WBC 6.9 (4.3-11.1) K/mcL Hgb 11.7 D (11.5-15.4) g/dL Hct 36.6 (35.3-44.9) % Plt Count 181 (140-400) K/mcL Neutrophils # 3.9 (1.6-8.9) K/mcL BMP 05/12/19 04:09 Sodium 142 Potassium 3.6 Chloride 111 H Carbon Dioxide 21 L BUN 23 Creatinine 1.01 Glucose 96 Calcium 8.6 - ABG Interpretation ABG results: PT/INR, D-dimer PT 12.5 Seconds (9.4-12.1) H 05/09/19 20:53 Consult Discharge Plan - Plan Referrals: Constanza Keller, DROP WIRE STRINGER [Primary Care Provider] - (1) Chest pain Qualifiers: Chest pain type: chest pain due to myocardial ischemia Ischemic chest pain type: unspecified angina pectoris type (2) COPD (chronic obstructive pulmonary disease) Qualifiers: COPD type: unspecified COPD Qualified Code(s): J44.9 - Chronic obstructive pulmonary disease, unspecified (6) Abdominal aortic aneurysm Qualifiers: Presence of rupture: without rupture Qualified Code(s): I71.4 - Abdominal aortic aneurysm, without rupture
[2019-05-12] MEDS: Budesonide/Formoterol 80/4.5 1 PUFF INH IH SCH ×2 (10:55→21:18)
[2019-05-12] MEDS: amLODIPine 5 MG TABLET PO SCH (11:37)
[2019-05-12] MEDS ORDERED: Azithromycin 250 MG TABLET PO SCH (14:00)
--- NOTE | 2019-05-12 14:07 | Pulmonology Consult Note ---
<Luciana Kaplan M - Last Filed: 05/12/19 16:35> Date of Encounter: 05/12/19 Medications and Allergies Albuterol Sulfate [Ventolin Hfa] 2 puff IH Q6H PRN 05/10/19 [History] Aspirin [Lo-Dose Aspirin EC] 81 mg PO DAILY 05/10/19 [History] Atorvastatin [Lipitor] 40 mg PO HS 05/10/19 [History] Cholecalciferol (D-3) [Vitamin D] 5,000 unit PO DAILY 05/10/19 [History] Fluticasone Propion/Salmeterol [Wixela 250-50 Inhub] 1 puff IH BID 05/10/19 [History] Lansoprazole [Prevacid] 30 mg PO DAILY 05/10/19 [History] hydrOXYzine HCl [Hydroxyzine HCl] 50 mg PO BID 05/10/19 [History] Allergy/AdvReac Type Severity Reaction Status Date / Time Iodinated Contrast Media Allergy Rash Verified 05/10/19 14:38 All Systems: The remainder of the systems were reviewed and are negative Physical Examination Vital Signs: Vital Signs, Last 4 Hours Temp Pulse Resp BP Pulse Ox 05/12/19 15:26 16 98 05/12/19 14:19 97.9 F 77 16 160/91 96 Results - Laboratory Findings CBC and BMP: 05/12/19 04:09 05/12/19 04:09 PT/INR, D-dimer PT 12.5 Seconds (9.4-12.1) H 05/09/19 20:53 Abnormal lab findings: Abnormal lab results PT 12.5 Seconds (9.4-12.1) H 05/09/19 20:53 APTT 21.8 Seconds (26.0-36.0) L 05/09/19 20:53 Potassium 3.3 mEq/L (3.5-5.1) L 05/09/19 20:53 Chloride 111 mEq/L (98-107) H 05/12/19 04:09 Carbon Dioxide 21 mEq/L (23-29) L 05/12/19 04:09 Est GFR (Non-Af Amer) 55 (> 60) L 05/12/19 04:09 Glucose 109 mg/dL (70-105) H 05/09/19 20:53 - Clinical Findings Intake & Output: Intake & Output 05/12/19 05/12/19 05/12/19 07:59 15:59 23:59 Intake Total 200 / 440 240 / 440 Output Total 350 / 350 Balance -150 / 90 240 / 90 Weight 112.6 kg Consult Discharge Plan - Plan Referrals: Constanza Keller, HOUSE MOVER SUPERVISOR [Primary Care Provider] - - Attending Attestation I examined this patient and my medical decision-making was reviewed with the Resident Physician. I agree with the documented findings, disposition and jose martin tment plan as described except to the extent set forth below. Patient seen and examined. Labs, radiology, chart personally reviewed. 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 Discussed with primary team to treat patient with COPD exacerbation with systemic steroids and empiric antibiotic for now. Patient needs to follow-up as outpatient and the she has not been in the office for about 2 years. Patient has borderline obstructive sleep apnea that needs to be addressed as well. Patient needs to be in lung Cancer screening program which can be done as outpatient. Patient has not been using bronchodilator now in the hospital because she felt sick and they have ex plained to her she needs to use them and hopefully she will tolerate Xopenex better. Cardiovascular: stable GI: Nutrition per dietary and GI prophylaxis per routine Heme: DVT prophylaxis per routine ID: Continue antibiotics and plan to de-escalation Renal; urine out put and renal function reviewed Endorcine: blood glucose is monitored Lines: all lines checked and no evidence of infections Skin: skin care to prevent pressure ulcers per nursing routine care Dispo: 3B and I am hoping she can be discharged in next 1-2 days. Code: Full. Prognosis. Fair <Antelmo Funes M - Last Filed: 05/13/19 06:59> Date of Encounter: 05/13/19 Time of Encounter: 15:00 Assessment and Plan (1) Acute exacerbation of chronic obstructive pulmonary disease (COPD) Current Visit: Yes Status: Acute Patient has known history of COPD 2/2 chronic Tobacco Abuse Presents with progressively worsening exertional dyspnea Patient recently quit smoking roughly 1 month ago Does not use oxygen at home, currently requiring 3L O2 Patient last visit in the pulmonology clinic greater than 2 years ago No documented PFT's on file Patient reports non-compliance with her bronchodilators Admits to some recent cough denies sputum production or significant wheezing Plan: -Systemic steroids -Empiric ABX -Continue with scheduled bronchodilators -Supplemental O2 to maintain SpO2 greater than 88% -O/P follow-up in the pulmonology clinic with PFTs (2) Obstructive sleep apnea Current Visit: Yes Status: Acute Patient has symptoms of moderate-severe MARCO Patient has not had dedicated sleep study Likely contributing to her pulmonary hypertension Plan: -Follow up O/p with sleep study -Will need re-qualified for CPAP at night (3) Pulmonary hypertension Current Visit: Yes Status: Acute 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 Diagnosed on Echo 05/10/19 Severe Pulm HTN with normal Right Ventricular Function No evidence of Right heart Failure HOwever patient does exhibit JVD and mild peripheral edema Plan: -CPAP for MARCO -Treat COPD with scheduled bronchodilators and continued smoking cessation (4) Tobacco abuse Current Visit: No Status: Chronic Counseled on continued smoking cessation History of Present Illness Consult date: 05/12/19 Reason for consult: COPD, pulmonary hypertension Chief complaint: Dyspnea History of present illness: Shante is 64-year-old female with a history of COPD, obstructive sleep apnea, c oronary artery disease S/P stent placement in 2017 who complains of ongoing chest pain and worsening exertional dyspnea. Pulmonology was consulted for recommendations regarding findings of severe pulmonary hypertension and severe exertional dyspnea. Patient describes roughly 1 week of progressively worsening chest pressure, midsternal with radiation to the back and accompanying dyspnea, worse on exertion. She does have nitroglycerin glycerin at home for these symptoms but did not take it. Patient denies leg swelling, cough, mucus production, low blood pressure/syncope/light headedness. Patient is a chronic tobacco user and is actively smoking at this time. Patient is not oxygen dependent, she does have obstructive sleep apnea but reports using her CPAP at night. She reports being compliant with her COPD bronchodilator regimen. Patient was evaluated in the emergency department. Her EKG showed normal sinus rhythm with no evidence of ischemia. Dissection for a CT was done given her presenting symptoms and associated history of hypertension which did reveal an irregular atherosclerotic plaque at the aortic arch with mild ulceration with interval increase in size when compared to previous exam, in addition to a mild aneurysm dilatation of the abdominal aorta 2.[address] image revealed redemonstration of Ramin tests lung changes. Patient's troponins were negative 3. Echocardiogram was obtained which revealed preserved ejection fraction with mild left ventricular diastolic dysfunction, severe pulmonary hypertension but preserved right ventricular function. Stress test was negative for ischemia or infarction. Past Med Surg Social Fam HX - Past Medical History Medical history: asthma, GERD, myocardial infarction, other Psychiatric history: anxiety, depression - Past Surgical History Surgical History: angioplasty/stent Additional surgical history: partial left knee replacement. - Social History Smoking Status: Former smoker Smokeless Tobacco Status: No Alcohol use: none Drug use: none - Family History Father Family Member Ethnicity: Non- Living Status: Cause of : HI Hx Family Cardiac Disorders: Yes (CAD, Stroke, Brain aneurysm) Hx Family Respiratory Disorders: No Hx Family Cancer: No Hx Family GI Disorders: No Hx Family Endocrine Disorder: No Hx Family Musculoskeletal Disorders: No Hx Family Neuromuscular Disorders: No Hx Family Neurologic Disorders: No Hx Family HEENT Disorders: No Hx Family Autoimmune Disorders: No Hx Family Reproductive Disorders: No Hx Family Psychosocial Disorders: No Hx Family Medical Disorders: No Mother Family Member Ethnicity: Non- Living Status: Hx Family Cardiac Disorders: Yes (CVA) Hx Family Respiratory Disorders: No Hx Family Cancer: Yes (colon cancer) Hx Family GI Disorders: No Hx Family Genitourinary Disorders: No Hx Family Endocrine Disorder: No Hx Family Musculoskeletal Disorders: No Hx Family Neuromuscular Disorders: No Hx Family Neurologic Disorders: No Hx Family HEENT Disorders: No Hx Family Autoimmune Disorders: No Hx Family Reproductive Disorders: No Hx Family Psychosocial Disorders: No Hx Family Medical Disorders: No Sister Family Member Ethnicity: Non- Living Status: Still Living Hx Family Cardiac Disorders: No Hx Family Respiratory Disorders: No Hx Family Cancer: Yes (Breast) Hx Family GI Disorders: No Hx Family Genitourinary Disorders: No Hx Family Endocrine Disorder: No Hx Family Musculoskeletal Disorders: No Hx Family Neuromuscular Disorders: No Hx Family Neurologic Disorders: No Hx Family HEENT Disorders: No Hx Family Autoimmune Disorders: No Hx Family Reproductive Disorders: No Hx Family Psychosocial Disorders: No Hx Family Medical Disorders: No Brother History Unknown: Yes Family Member Ethnicity: Non- Living Status: Still Living Hx Family Cardiac Disorders: No Hx Family Respiratory Disorders: No Hx Family Cancer: No Hx Family GI Disorders: No Hx Family Genitourinary Disorders: No Hx Family Endocrine Disorder: No Hx Family Musculoskeletal Disorders: No Hx Family Neuromuscular Disorders: No Hx Family Neurologic Disorders: No Hx Family HEENT Disorders: No Hx Family Autoimmune Disorders: No Hx Family Reproductive Disorders: No Hx Family Psychosocial Disorders: No Hx Family Medical Disorders: No All Systems: The remainder of the systems were reviewed and are negative Physical Examination Vital Signs: Vital Signs, Last 4 Hours Temp Pulse Resp BP Pulse Ox 05/12/19 11:39 94 05/12/19 10:40 97.9 F 69 16 132/85 98 Gen: alert and oriented, NAD, vitals noted Head: atruamatic, normocephalic Eyes: anicteric sclera, EOMI ENT: mucous membranes moist Neck: +JVD, trachea midline CV: RRR, no murmurs gallops rubs Resp: diffuse wheezing, no crackles, occasional rhonchi Abd: soft, nontender, no hepatojugular reflex Ext: +1 pretibial edema, tender, no rashes or cyanosis Results - Laboratory Findings CBC and BMP: 05/12/19 04:09 05/12/19 04:09 PT/INR, D-dimer PT 12.5 Seconds (9.4-12.1) H 05/09/19 20:53 Abnormal lab findings: Abnormal lab results PT 12.5 Seconds (9.4-12.1) H 05/09/19 20:53 APTT 21.8 Seconds (26.0-36.0) L 05/09/19 20:53 Potassium 3.3 mEq/L (3.5-5.1) L 05/09/19 20:53 Chloride 111 mEq/L (98-107) H 05/12/19 04:09 Carbon Dioxide 21 mEq/L (23-29) L 05/12/19 04:09 Est GFR (Non-Af Amer) 55 (> 60) L 05/12/19 04:09 Glucose 109 mg/dL (70-105) H 05/09/19 20:53 - Clinical Findings Intake & Output: Intake & Output 05/11/19 05/12/19 05/12/19 23:59 07:59 15:59 Intake Total 350 / 590 200 / 440 240 / 440 Output Total 350 / 350 Balance 350 / 490 -150 / 90 240 / 90 Weight 112.6 kg
[2019-05-12] MEDS ORDERED: Acetaminophen/Butalbital/CaffeineTABLET PO PRN (16:33)
[2019-05-12] MEDS: methylPREDNISolone 125 MG/2 ML VIAL IVP SCH (17:00)
[2019-05-13] MEDS: Levalbuterol Neb 1.25 MG/3 ML IH SCH ×2 (03:47→10:39)
[2019-05-13] MEDS: *HR* Heparin 5,000 UNIT/ML VIAL SQ SCH (06:00)
[2019-05-13] MEDS: methylPREDNISolone 125 MG/2 ML VIAL IVP SCH (06:01)
[2019-05-13 07:05] VITALS: BP 150/88
[2019-05-13] MEDS: Aspirin Enteric Coated 81 MG Tablet PO SCH (07:53)
[2019-05-13] MEDS: amLODIPine 5 MG TABLET PO SCH (07:53)
[2019-05-13] MEDS: hydrOXYzine pamoate 25 MG CAPSULE PO SCH (07:53)
[2019-05-13] MEDS: Cholecalciferol (D-3) 1,000 UNIT (25MCG) TABLET PO SCH (07:53)
--- NOTE | 2019-05-13 09:52 | Pulmonology Progress Note ---
<Luciana Kaplan - Last Filed: 05/13/19 15:58> Date of Encounter: 05/13/19 Objective PUL Vital signs: Last Vital Signs Temp 97.7 F 05/13/19 07:02 Pulse 79 05/13/19 07:02 Resp 16 05/13/19 07:02 BP 150/88 05/13/19 07:02 Pulse Ox 91 05/13/19 07:02 Results - Laboratory Findings CBC and BMP: 05/12/19 04:09 05/12/19 04:09 PT/INR, D-dimer PT 12.5 Seconds (9.4-12.1) H 05/09/19 20:53 Abnormal lab findings: Abnormal lab results PT 12.5 Seconds (9.4-12.1) H 05/09/19 20:53 APTT 21.8 Seconds (26.0-36.0) L 05/09/19 20:53 Potassium 3.3 mEq/L (3.5-5.1) L 05/09/19 20:53 Chloride 111 mEq/L (98-107) H 05/12/19 04:09 Carbon Dioxide 21 mEq/L (23-29) L 05/12/19 04:09 Est GFR (Non-Af Amer) 55 (> 60) L 05/12/19 04:09 Glucose 109 mg/dL (70-105) H 05/09/19 20:53 - Clinical Findings Intake & Output: Intake & Output 05/12/19 05/13/19 05/13/19 23:59 07:59 15:59 Intake Total 120 / 560 120 / 600 480 / 600 Output Total 200 / 550 300 / 300 Balance -80 / 10 -180 / 300 480 / 300 Weight 111.357 kg Consult Discharge Plan - Plan Instructions: Lisinopril (By mouth), Prednisone (By mouth), Azithromycin (By mouth), Amlodipine (By mouth), Using Oxygen at Home (DC), Using Oxygen at Home (GEN) Additional Instructions: Home oxygen has been set up through [facility]. Call them when you get home to have equipment delivered. #[phone]. Referrals: Luciana Kaplan MD [Partnered Physician] - (Appointment has been requested.) Constanza Keller, CANNON CREWMEMBER [Primary Care Provider] - (Please call the office and make an appt for 7-10 days.) Prescriptions: amLODIPine [Norvasc] 5 mg PO DAILY #30 tablet predniSONE [PredniSONE] 10 mg PO DAILY #30 tablet Lisinopril [Zestril] 5 mg PO DAILY #30 tablet Azithromycin [Zithromax] 500 mg PO Q24H #6 tablet - Attending Attestation I examined this patient and my medical decision-making was reviewed with the Resident Physician. I agree with the documented findings, disposition and treatment plan as described except to the extent set forth below. Patient seen and examined. Labs, radiology, chart personally reviewed. 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 Patient needs to follow-up as outpatient and hopefully she will not need oxygen when she come to the office we will plan for a reassessment with 6 minute walk. All other instructions as outlined yesterday in the pulmonary consult. Patient will be discharged on taper steroid and empiric antibiotic. Thank you for consultation. Cardiovascular: stable <Antelmo Funes - Last Filed: 05/13/19 17:48> Date of Encounter: 05/13/19 Time of Encounter: 09:00 Assessment and Plan (1) Acute exacerbation of chronic obstructive pulmonary disease (COPD) Status: Acute Patient has known history of COPD 2/2 chronic Tobacco Abuse Presents with progressively worsening exertional dyspnea Patient recently quit smoking roughly 1 month ago Does not use oxygen at home, currently requiring 3L O2 Patient last visit in the pulmonology clinic greater than 2 years ago No documented PFT's on file Patient reports non-compliance with her bronchodilators Admits to some recent cough denies sputum production or significant wheezing Plan: -We will sign off at this time, please reconsult if needed -Systemic steroids, may discharge patient with steroid taper -Empiric ABX -Continue with scheduled bronchodilators -Supplemental O2 to maintain SpO2 greater than 88% -O/P follow-up in the pulmonology clinic with PFTs and repeat 6 minute walk test (2) Obstructive sleep apnea Status: Acute Patient has symptoms of moderate-severe MARCO Patient has not had dedicated sleep study Likely contributing to her pulmonary hypertension Plan: -Follow up O/p with sleep study -Will need re-qualified for CPAP at night (3) Pulmonary hypertension Status: Acute 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 Patient is much improved from yesterday. Patient's breathing is better, still requiring 3 L O2, her wheezing has decreased she reports feeling much better. Patient denies any new or wo rsening this time. Objective PUL Vital signs: Last Vital Signs Temp 97.7 F 05/13/19 07:02 Pulse 79 05/13/19 07:02 Resp 16 05/13/19 07:02 BP 150/88 05/13/19 07:02 Pulse Ox 91 05/13/19 07:02 Gen: alert and oriented, NAD, vitals noted Head: atruamatic, normocephalic Eyes: anicteric sclera, EOMI ENT: mucous membranes moist Neck: +JVD, trachea midline CV: RRR, no murmurs gallops rubs Resp: Mild wheezing, much improved from prior exam, no crackles, occasional rhonchi Abd: soft, nontender, no hepatojugular reflex Ext: +1 pretibial edema, tender, no rashes or cyanosis Results - Laboratory Findings CBC and BMP: 05/12/19 04:09 05/12/19 04:09 PT/INR, D-dimer PT 12.5 Seconds (9.4-12.1) H 05/09/19 20:53 Abnormal lab findings: Abnormal lab results PT 12.5 Seconds (9.4-12.1) H 05/09/19 20:53 APTT 21.8 Seconds (26.0-36.0) L 05/09/19 20:53 Potassium 3.3 mEq/L (3.5-5.1) L 05/09/19 20:53 Chloride 111 mEq/L (98-107) H 05/12/19 04:09 Carbon Dioxide 21 mEq/L (23-29) L 05/12/19 04:09 Est GFR (Non-Af Amer) 55 (> 60) L 05/12/19 04:09 Glucose 109 mg/dL (70-105) H 05/09/19 20:53 - Clinical Findings Intake & Output: Intake & Output 05/12/19 05/13/19 05/13/19 23:59 07:59 15:59 Intake Total 120 / 560 120 / 120 Output Total 200 / 550 300 / 300 Balance -80 / 10 -180 / -180 Weight 111.357 kg
--- NOTE | 2019-05-13 10:09 | Discharge Summary ---
- NOTES TO OUTPATIENT PROVIDER Notes to Outpatient Provider: f/u with PCP within a week. f/u with pulm within 2 weeks for PFT. Date of Encounter: 05/13/19 Time of Encounter: 10:07 - Discharge Diagnosis (1) Chest pain Priority: Primary Status: Acute Qualifiers: Chest pain type: chest pain due to myocardial ischemia Ischemic chest pain type: other angina pectoris type (2) COPD (chronic obstructive pulmonary disease) Priority: Primary Status: Chronic Qualifiers: COPD type: unspecified COPD Qualified Code(s): J44.9 - Chronic obstructive pulmonary disease, unspecified (3) Tobacco abuse Priority: Secondary Status: Chronic (4) Obesity (BMI 35.0-39.9 without comorbidity) Priority: Secondary Status: Chronic (5) Anxiety Priority: Secondary Status: Chronic (6) Abdominal aortic aneurysm Priority: Primary Status: Acute Qualifiers: Presence of rupture: without rupture Qualified Code(s): I71.4 - Abdominal aortic aneurysm, without rupture (7) Atherosclerotic plaque Priority: Primary Status: Acute (8) DVT prophylaxis Priority: Primary Status: Acute (9) Pulmonary hypertension Priority: Primary Status: Acute Hospital course: Georgina Witt is a 64 year old obese woman active smoker with obstructive lung disease, obstructive sleep apnea and coronary artery disease who had one stent placed to her RCA in December 2016 and underwent a repeat LHC in July 2017 due to ongoing chest pain and deemed to have only mild 2 vessel disease presenting to the emergency room complaining of increasing chest discomfort that has been present for the past week but notably worsened today. He describes it as a hurt and pressure that is midsternal in location and radiates to her back accompanied by dyspnea. She has nitroglycerin at home but she has never taken it. Her EKG showed normal sinus rhythm. A dissection protocol CT was done given her description of the pain associated with her hypertensive state and this was revealing of an irregular atherosclerotic plaque at the aortic arch with mild ulceration that seems to have increased in size when compared to previous exam, a mild aneurysmal dilatation of the abdominal aorta 2.9 cm and emphysematous lung changes. She was given a loading dose of aspirin and is admitted for further evaluation. Serial troponin was negative, EKG has no acute ST-T change. A nuclear stress test was performed which was negative for ischemia or infarct. Echocardiogram was performed which showed preserved LV ejection fraction, severe pulmonary hypertension. A 6 minute walking study was performed and the patient cannot maintain a satisfactory oxygen saturation without oxygen supplementation. Pulmonology was consulted, recommended starting patient on oral antibiotics and systemic steroids in addition to bronchodilators and inhaled steroids. With the treatment, patient reported her symptoms have improved. On the discharge today, she is stated she was able to walk to the bathroom without oxygen without dyspnea. While in the hospital, patient blood pressure was elevated, Norvasc and lisinopril was prescribed, patient was instructed to continue monitoring BP at home, follow-up with PCP regularly. Patient is discharged home today, oral antibiotics and steroids was prescribed, she will see PCP and pulmonology as scheduled. Discharge discussed with: patient Time spent discussing smoking cessation with patient: more than 10 minutes - Time Spent with Patient Total time spent providing and/or coordinating discharge services: Time spent: Greater than 30 minutes - Discharge Medications Prescriptions: New amLODIPine [Norvasc] 5 mg PO DAILY #30 tablet predniSONE [PredniSONE] 10 mg PO DAILY #30 tablet Lisinopril [Zestril] 5 mg PO DAILY #30 tablet Azithromycin [Zithromax] 500 mg PO Q24H #6 tablet Continued Albuterol Sulfate [Ventolin Hfa] 2 puff IH Q6H PRN PRN Reason: Shortness Of Breath Lansoprazole [Prevacid] 30 mg PO DAILY hydrOXYzine HCl [Hydroxyzine HCl] 50 mg PO BID Fluticasone Propion/Salmeterol [Wixela 250-50 Inhub] 1 puff IH BID Cholecalciferol (D-3) [Vitamin D] 5,000 unit PO DAILY Atorvastatin [Lipitor] 40 mg PO HS Aspirin [Lo-Dose Aspirin EC] 81 mg PO DAILY Home Medications: Albuterol Sulfate [Ventolin Hfa] 2 puff IH Q6H PRN 05/10/19 [History] Aspirin [Lo-Dose Aspirin EC] 81 mg PO DAILY 05/10/19 [History] Atorvastatin [Lipitor] 40 mg PO HS 05/10/19 [History] Cholecalciferol (D-3) [Vitamin D] 5,000 unit PO DAILY 05/10/19 [History] Fluticasone Propion/Salmeterol [Wixela 250-50 Inhub] 1 puff IH BID 05/10/19 [History] Lansoprazole [Prevacid] 30 mg PO DAILY 05/10/19 [History] hydrOXYzine HCl [Hydroxyzine HCl] 50 mg PO BID 05/10/19 [History] Azithromycin [Zithromax] 500 mg PO Q24H #6 tablet 05/13/19 [Rx] Lisinopril [Zestril] 5 mg PO DAILY #30 tablet 05/13/19 [Rx] amLODIPine [Norvasc] 5 mg PO DAILY #30 tablet 05/13/19 [Rx] predniSONE [PredniSONE] 10 mg PO DAILY #30 tablet 05/13/19 [Rx] Allergies/Adverse Reactions: Allergy/AdvReac Type Severity Reaction Status Date / Time Iodinated Contrast Media Allergy Rash Verified 05/10/19 14:38 Date of admission: 05/12/19 15:29 Primary care physician: Constanza Keller CNP Consults: 05/12/19 08:26 Consult to Physical Therapy [CONS] Routine Comment: Evaluate, develop and implement POC Reason for Consult: dc plan Does patient have active BEDREST order?: No Is patient medically & hemodynamically stable?: Yes Patient assessed for mobility or mobilized this visit?: Yes OT [Consult to Occupational Therapy] [CONS] Routine Comment: Evaluate, develop and implement POC Reason for Consult: dc plan Does patient have active BEDREST order?: No Is patient medically & hemodynamically stable?: Yes Patient assessed for mobility or mobilized this visit?: Yes 05/12/19 09:47 Consult to Nurse Navigator [CONS] Routine Comment: COPD 05/12/19 13:41 Consult to Pulmonology [CONS] Routine Consulting Provider: [facility] Reason for Consult: dypnea on exertion, severe pulm HTN Call Completed: Yes Anticipated date of discharge: 05/13/19 - Constitutional Vitals: Temp Pulse Resp BP Pulse Ox 97.7 F 79 16 150/88 91 05/13/19 07:02 05/13/19 07:02 05/13/19 07:02 05/13/19 07:02 05/13/19 07:02 General appearance: Present: A&O X 3 Exam: PHYSICAL EXAMINATION: GENERAL APPEARANCE: The patient is alert, oriented and in no acute distress. HEENT: Head is normocephalic. The sinuses are nontender. Pupils are equal and reactive. The nares are patent. Oropharynx clear without lesions. NECK: Supple without lymphadenopathy. HEART: Regular rate and rhythm. LUNGS: No crackles or wheezes are heard. ABDOMEN: Soft, nontender, nondistended with good bowel sounds heard. Inguinal area is normal. EXTREMITIES: Without cyanosis, clubbing or edema. NEUROLOGICAL: Gross nonfocal. SKIN: Warm and dry without any rash. - Patient Status Disposition: Home, Self-Care Condition: Good Functional capacity at discharge: independent ambulation Overall status at discharge: patient is progressing back to baseline - Discharge Instructions Follow Up With: Constanza Keller, [employer] [Primary Care Provider] - - Diet and Activity Activity: increase activity as tolerated Diet: low fat, low cholesterol, low salt diet
[2019-05-13] MEDS: Budesonide/Formoterol 80/4.5 1 PUFF INH IH SCH (10:39)
--- NOTE | 2019-05-13 10:54 | Electrocardiograph Report ---
[address] [address] Test Date: 2019-05-09 Pat Name: Georgina Witt Department: 104 Room: 3B54 Gender: Pit Recorder: : [id number] Requested By: Jamison Ayala Order Number: [id number] Reading MD: Kumar Sood Measurements Intervals [place] Rate: 90 P: 53 W[place]: 134 QRS: 58 QRSD: 98 T: 52 QT: 357 QTc: 405 Interpretive Statements SINUS RHYTHM POSSIBLE LEFT ATRIAL ENLARGEMENT BASELINE ARTIFACTS Electronically Signed On 05-13-2019 10:52:50 EDT by Kumar Sood
== END 2019-05-13 12:31 | disposition home or self-care (01) | DRG 313 ==
LOC: EMEROOARM 19:16 → 3BNU 19:16
PROVIDERS: ADMIT Internal Medicine; ATTEND Nurse Practitioner Acute Care

== ENCOUNTER 2019-10-28 15:49 | Inpatient (IN) ==
[2019-10-28 16:37] LABS: Basophils # 0.1 K/mcL (0.0-0.2); Basophils % 0.5 %; Eosinophils # 0.4 K/mcL (0.0-0.6); Eosinophils % 3.6 %; Hematocrit 44.3 % (35.3-44.9); Hemoglobin 14.8 g/dL (11.5-15.4); Immature Granulocytes % 1.3 % (0-4); Lymphocytes # 2.6 K/mcL (0.6-4.6); Lymphocytes % 26.7 %; Mean Corpuscular HGB Conc 33.4 g/dL (31.6-35.5); Mean Corpuscular Hemoglobin 30.5 pg (28.0-33.3); Mean Corpuscular Volume 91.3 fL (83.0-100.0); Mean Platelet Volume 10.1 fL (9.4-12.4); Monocytes # 0.6 K/mcL (0.0-1.3); Monocytes % 6.2 %; Platelet Count 206 K/mcL (140-400); Red Blood Count 4.85 M/mcL (3.82-4.97); Red Cell Distribution Width 13.1 % (11.5-14.5); Segmented Neutrophils % 61.7 %; White Blood Count 9.7 K/mcL (4.3-11.1)
[2019-10-28] MEDS ORDERED: Isovue-370 500 ML BOTTLE IVP ONE (16:42)
[2019-10-28 16:46] LABS: BUN/Creatinine Ratio 20 (6-26); Blood Urea Nitrogen 23 mg/dL (8-23); Calcium 9.5 mg/dL (8.6-10.3); Carbon Dioxide 21 mEq/L (23-29); Chloride 109 mEq/L (98-107); Glucose 109 mg/dL (70-105); Osmolality,Calculated 296 (280-300); Sodium 141 mEq/L (136-145); Troponin I < 0.03 ng/mL (< 0.04); eGFR For African Americans 57 (> 60); eGFR For Non-African Americans 47 (> 60)
[2019-10-28] MEDS ORDERED: methylPREDNISolone 125 MG/2 ML VIAL IVP STA (16:51)
[2019-10-28] MEDS ORDERED: 0.9 % Sodium Chloride 500 ML IVC ONE (16:53)
[2019-10-28] MEDS ORDERED: Furosemide 40 MG in 0.9 % Sodium Chloride 50 ML IV ONE (19:55)
[2019-10-28] MEDS ORDERED: Furosemide 40 MG/4 ML VIAL IVP ONE (20:00)
[2019-10-28] MEDS ORDERED: Naloxone 0.4 MG/ML INJ IVP PRN (20:33)
[2019-10-28] MEDS ORDERED: Albuterol 2.5 MG/3 ML NEBULIZER IH PRN (20:44)
[2019-10-28] MEDS: Ipratropium/Albuterol Neb 3 ML IH SCH (22:20)
[2019-10-28] MEDS: MethylPREDNISolone 40 MG/ML VIAL IVP SCH (23:42)
[2019-10-28] MEDS: Nicotine 21 MG PATCH.TD24 TD SCH (23:43)
[2019-10-28] MEDS: Azithromycin 500 MG in D5% in Water 250 ML IVPB SCH (23:43)
[2019-10-29] MEDS: Ipratropium/Albuterol Neb 3 ML IH SCH ×3 (04:02→15:44)
[2019-10-29 05:33] LABS: Hematocrit 42.8 % (35.3-44.9); Mean Corpuscular HGB Conc 32.7 g/dL (31.6-35.5); Mean Corpuscular Hemoglobin 29.6 pg (28.0-33.3); Mean Corpuscular Volume 90.5 fL (83.0-100.0); Mean Platelet Volume 10.4 fL (9.4-12.4); Platelet Count 214 K/mcL (140-400); Red Blood Count 4.73 M/mcL (3.82-4.97); Red Cell Distribution Width 12.8 % (11.5-14.5); White Blood Count 5.9 K/mcL (4.3-11.1)
[2019-10-29 05:50] LABS: Prothrombin Time 11.6 Seconds (9.4-12.1)
[2019-10-29 05:56] LABS: Troponin I < 0.03 ng/mL (< 0.04)
[2019-10-29 06:04] LABS: Alanine Aminotransferase 10 Units/L (7-52); Albumin 3.7 g/dL (3.5-5.7); Albumin/Globulin Ratio 1.3 (1.1-2.2); Alkaline Phosphatase 76 Units/L (34-104); Aspartate Amino Transferase 10 Units/L (13-39); BUN/Creatinine Ratio 21 (6-26); Bilirubin,Total 0.8 mg/dL (0.3-1.0); Blood Urea Nitrogen 29 mg/dL (8-23); Calcium 9.2 mg/dL (8.6-10.3); Chloride 106 mEq/L (98-107); Globulin 2.9 g/dL (2.4-3.5); Glucose 258 mg/dL (70-105); Magnesium 1.9 mg/dL (1.6-2.6); Osmolality,Calculated 299 (280-300); Phosphorous 2.7 mg/dL (2.7-4.5); Potassium 4.2 mEq/L (3.5-5.1); Sodium 137 mEq/L (136-145); Total Protein 6.6 g/dL (6.4-8.9); eGFR For African Americans 47 (> 60); eGFR For Non-African Americans 39 (> 60)
[2019-10-29 06:26] LABS: Carbon Dioxide 20 mEq/L (23-29)
[2019-10-29] MEDS: MethylPREDNISolone 40 MG/ML VIAL IVP SCH ×2 (06:42→11:50)
[2019-10-29] MEDS: *HR* Heparin 5,000 UNIT/ML VIAL SQ SCH ×2 (06:43→17:13)
[2019-10-29] MEDS: Nicotine 21 MG PATCH.TD24 TD SCH (08:13)
[2019-10-29] MEDS: Aspirin Enteric Coated 81 MG Tablet PO SCH (08:13)
[2019-10-29] MEDS ORDERED: Cyanocobalamin (B-12) 1,000 MCG/ML VIAL IM SCH (08:45)
[2019-10-29] MEDS ORDERED: Cholecalciferol (D-3) 1,000 UNIT (25MCG) TABLET PO SCH (09:00)
[2019-10-29] MEDS ORDERED: amLODIPine 5 MG TABLET PO SCH (09:00)
[2019-10-29] MEDS: Fluconazole 100 MG TABLET PO SCH (11:50)
[2019-10-29] MEDS ORDERED: Furosemide 20 MG/2 ML VIAL IVP ONE (15:32)
[2019-10-29] MEDS: Cholecalciferol (D-3) 1,000 UNIT (25MCG) TABLET PO SCH (21:21)
[2019-10-29] MEDS: amLODIPine 5 MG TABLET PO SCH (21:22)
[2019-10-29] MEDS: Azithromycin 500 MG in D5% in Water 250 ML IVPB SCH (21:23)
[2019-10-29] MEDS: Furosemide 20 MG/2 ML VIAL IVP SCH (21:25)
[2019-10-29] MEDS ORDERED: Perflutren Lipid Microsphere 1.3 ML in 0.9 % Sodium Chloride 8.7 ML IVP ONE (21:30)
[2019-10-30] MEDS: Ipratropium/Albuterol Neb 3 ML IH SCH ×4 (00:13→22:00)
[2019-10-30 06:16] LABS: Calcium 9.7 mg/dL (8.6-10.3); Potassium 4.2 mEq/L (3.5-5.1)
[2019-10-30] MEDS: *HR* Heparin 5,000 UNIT/ML VIAL SQ SCH ×2 (07:00→19:20)
[2019-10-30] MEDS: predniSONE 20 MG TABLET PO SCH (11:27)
[2019-10-30] MEDS: Fluconazole 100 MG TABLET PO SCH (11:28)
[2019-10-30] MEDS: Aspirin Enteric Coated 81 MG Tablet PO SCH (11:28)
[2019-10-30] MEDS: Nicotine 21 MG PATCH.TD24 TD SCH (11:28)
[2019-10-30] MEDS: Furosemide 20 MG/2 ML VIAL IVP SCH ×2 (11:33→20:28)
[2019-10-30] MEDS: Cholecalciferol (D-3) 1,000 UNIT (25MCG) TABLET PO SCH (20:26)
[2019-10-30] MEDS: amLODIPine 5 MG TABLET PO SCH (20:27)
[2019-10-30] MEDS: Azithromycin 500 MG in D5% in Water 250 ML IVPB SCH (20:29)
[2019-10-31] MEDS ORDERED: *HR* LORazepam 0.5 MG TABLET PO ONE (00:59)
[2019-10-31 03:49] LABS: Calcium 8.6 mg/dL (8.6-10.3); Potassium 3.7 mEq/L (3.5-5.1)
[2019-10-31] MEDS: *HR* Heparin 5,000 UNIT/ML VIAL SQ SCH ×2 (05:51→18:00)
[2019-10-31] MEDS: Fluconazole 100 MG TABLET PO SCH (08:26)
[2019-10-31] MEDS: Aspirin Enteric Coated 81 MG Tablet PO SCH (08:26)
[2019-10-31] MEDS: Nicotine 21 MG PATCH.TD24 TD SCH (08:27)
[2019-10-31] MEDS: predniSONE 20 MG TABLET PO SCH (08:27)
[2019-10-31] MEDS: Ipratropium/Albuterol Neb 3 ML IH SCH ×2 (10:20→21:38)
[2019-10-31] MEDS ORDERED: *HR* LORazepam 2 MG/ML VIAL IVP PRN (13:08)
[2019-10-31] MEDS ORDERED: *HR* LORazepam 1 MG TABLET PO PRN (14:21)
[2019-10-31] MEDS: Cholecalciferol (D-3) 1,000 UNIT (25MCG) TABLET PO SCH (20:56)
[2019-10-31] MEDS: Azithromycin 500 MG in D5% in Water 250 ML IVPB SCH (20:57)
[2019-10-31] MEDS: amLODIPine 5 MG TABLET PO SCH (21:02)
[2019-11-01 02:08] LABS: Calcium 8.7 mg/dL (8.6-10.3)
[2019-11-01] MEDS: *HR* Heparin 5,000 UNIT/ML VIAL SQ SCH (05:53)
[2019-11-01 07:43] VITALS: BP 116/74
[2019-11-01 08:47] LABS: ABG Base Excess 1 mEq/L (-2 to 3); ABG HCO3 26 mEq/L (21-27); ABG Oxygen Saturation 97 % (95-98); ABG PCO2 39 mmHg (35-45); ABG PH 7.42 pH Units (7.32-7.45); ABG PO2 85 mmHg (85-104); ABG TCO2 27 mEq/L (20-26)
[2019-11-01] MEDS: Fluconazole 100 MG TABLET PO SCH (08:47)
[2019-11-01] MEDS: predniSONE 20 MG TABLET PO SCH (08:47)
[2019-11-01] MEDS: Aspirin Enteric Coated 81 MG Tablet PO SCH (08:47)
[2019-11-01] MEDS: Nicotine 21 MG PATCH.TD24 TD SCH (08:47)
[2019-11-01] MEDS: Ipratropium/Albuterol Neb 3 ML IH SCH (10:38)
== END 2019-11-01 11:16 | disposition home or self-care (01) | DRG 190 ==
LOC: 3BNU 15:49 → EMEROOARM 15:49 → 3BNU 20:44
PROVIDERS: ADMIT Internal Medicine; ATTEND Internal Medicine

== ENCOUNTER 2020-11-08 08:12 | Inpatient (IN) ==
[2020-11-08] MEDS ORDERED: Isovue-370 500 ML BOTTLE IVP ONE (08:25)
[2020-11-08] MEDS ORDERED: 0.9 % Sodium Chloride 1,000 ML IVC ONE (08:29)
[2020-11-08 08:50] LABS: Basophils % 0.4 %; Eosinophils # 0.1 K/mcL (0.0-0.6); Hematocrit 38.6 % (35.3-44.9); Hemoglobin 12.1 g/dL (11.5-15.4); Immature Granulocytes % 0.6 % (0-4); Lymphocytes # 1.6 K/mcL (0.6-4.6); Lymphocytes % 15.3 %; Mean Corpuscular HGB Conc 31.3 g/dL (31.6-35.5); Mean Corpuscular Hemoglobin 29.5 pg (28.0-33.3); Mean Corpuscular Volume 94.1 fL (83.0-100.0); Mean Platelet Volume 10.7 fL (9.4-12.4); Monocytes # 0.4 K/mcL (0.0-1.3); Neutrophils # 8.1 K/mcL (1.6-8.9); Platelet Count 156 K/mcL (140-400); Red Cell Distribution Width 13.9 % (11.5-14.5); Segmented Neutrophils % 78.7 %; White Blood Count 10.2 K/mcL (4.3-11.1)
[2020-11-08 09:16] LABS: Troponin I 0.04 ng/mL (< 0.04)
[2020-11-08] MEDS ORDERED: 0.9 % Sodium Chloride 500 ML ONE (10:08)
[2020-11-08] MEDS ORDERED: *HR* Heparin 5,000 UNIT/ML VIAL IVP ONE (10:44)
[2020-11-08] MEDS ORDERED: *HR* Heparin 5,000 UNIT/ML VIAL IVP PRN ×2 (10:44)
[2020-11-08] MEDS ORDERED: Heparin 25,000UNIT/250ML 1/2NS 25,000 UNIT/250 ML IV.SOLN IVC SCH (10:45)
[2020-11-08 10:50] LABS: Potassium 4.6 mEq/L (3.5-5.1)
[2020-11-08 11:17] LABS: Hematocrit 38.6 % (35.3-44.9); Hemoglobin 11.9 g/dL (11.5-15.4); Mean Corpuscular HGB Conc 30.8 g/dL (31.6-35.5); Mean Corpuscular Hemoglobin 29.5 pg (28.0-33.3); Mean Corpuscular Volume 95.5 fL (83.0-100.0); Mean Platelet Volume 11.5 fL (9.4-12.4); Platelet Count 135 K/mcL (140-400); Red Blood Count 4.04 M/mcL (3.82-4.97); Red Cell Distribution Width 13.9 % (11.5-14.5); White Blood Count 9.1 K/mcL (4.3-11.1)
[2020-11-08 11:28] LABS: INR 1.2; Prothrombin Time 13.4 Seconds (9.4-12.1)
[2020-11-08 11:29] LABS: Heparin anti-factor XA UFH < 0.04 IU/mL (0.30-0.70)
[2020-11-08] MEDS ORDERED: Naloxone 0.4 MG/ML INJ IVP PRN (11:38)
[2020-11-08] MEDS ORDERED: 0.9 % Sodium Chloride 250 ML ONE (13:34)
[2020-11-08] MEDS ORDERED: *HR* Norepinephrine 4 MG/4 ML VIAL IVC ONE (13:34)
[2020-11-08] MEDS ORDERED: Norepinephrine 4 MG/254 ML IV.SOLN IVC SCH (13:45)
[2020-11-08 13:46] LABS: Albumin 3.2 g/dL (3.5-5.7); Albumin/Globulin Ratio 1.3 (1.1-2.2); Bilirubin,Direct 0.2 mg/dL (0.0-0.2); Bilirubin,Indirect 0.6 mg/dL (0.0-1.0); Bilirubin,Total 0.8 mg/dL (0.3-1.0); Globulin 2.5 g/dL (2.4-3.5); Total Protein 5.7 g/dL (6.4-8.9)
[2020-11-08] MEDS ORDERED: Perflutren Lipid Microsphere 1.3 ML in 0.9 % Sodium Chloride 8.7 ML IVP PRN (13:55)
[2020-11-08] MEDS ORDERED: *HR* LORazepam 1 MG TABLET PO PRN (15:00)
[2020-11-08] MEDS: *HR* Heparin 5,000 UNIT/ML VIAL SQ SCH ×2 (15:14→21:11)
[2020-11-08 15:49] LABS: Adenovirus Not Detected (Not Detect); Bordetella Pertussis Not Detected (Not Detect); Chlamydophila pneumoniae Not Detected (Not Detect); Coronavirus 229E Not Detected (Not Detect); Coronavirus HKU1 Not Detected (Not Detect); Coronavirus NL63 Not Detected (Not Detect); Coronavirus OC43 Not Detected (Not Detect); Human Metapneumovirus Not Detected (Not Detect); Human Rhinovirus/Enterovirus Not Detected (Not Detect); Influenza A Subtype 2009 H1 Not Detected (Not Detect); Influenza B Not Detected (Not Detect); Mycoplasma pneumoniae Not Detected (Not Detect); Parainfluenza Virus 1 Not Detected (Not Detect); Parainfluenza Virus 2 Not Detected (Not Detect); Parainfluenza Virus 3 Not Detected (Not Detect); Parainfluenza Virus 4 Not Detected (Not Detect); Respiratory Syncytial Virus Not Detected (Not Detect); SARS-CoV-2 Not Detected (Not Detect)
[2020-11-08] MEDS: Ipratropium/Albuterol Neb 3 ML IH SCH ×3 (16:52→23:29)
[2020-11-08 17:34] LABS: Bacteria,Urine Few per hpf (None-Few); Bilirubin,Urine Negative (Negative); Blood,Urine Negative (Negative); Clarity,Urine Clear (Clear); Color,Urine Yellow (Yellow); Glucose,Urine (UA) Normal (Normal); Ketones,Urine Negative (Negative); Leukocyte Esterase,Urine Negative (Negative); Mucus,Urine Few per lpf (None-Few); Nitrite,Urine Negative (Negative); PH,Urine 5.5 pH Units (5.0-8.0); Protein,Urine 70 mg/dL (Neg-Trace); Specific Gravity,Urine > 1.030 (1.010-1.025); Squamous Epithelial Cell,Urine Few per hpf (None-Few); Urobilinogen,Urine Normal (Normal); WBC,Urine 0-3 per hpf (0-3)
[2020-11-08] MEDS: MethylPREDNISolone 40 MG/ML VIAL IVP SCH (17:38)
[2020-11-08] MEDS: Doxycycline 100 MG in 0.9 % Sodium Chloride Mini Bag 100 ML IVPB SCH (17:38)
[2020-11-09] MEDS ORDERED: Melatonin 3 MG TABLET PO ONE (01:35)
[2020-11-09] MEDS: Ipratropium/Albuterol Neb 3 ML IH SCH ×2 (03:46→07:50)
[2020-11-09 04:49] LABS: Calcium 8.7 mg/dL (8.6-10.3); Magnesium 1.9 mg/dL (1.6-2.6); Potassium 5.6 mEq/L (3.5-5.1)
[2020-11-09] MEDS: Doxycycline 100 MG in 0.9 % Sodium Chloride Mini Bag 100 ML IVPB SCH (05:47)
[2020-11-09] MEDS: *HR* Heparin 5,000 UNIT/ML VIAL SQ SCH (05:47)
[2020-11-09] MEDS: MethylPREDNISolone 40 MG/ML VIAL IVP SCH (05:47)
[2020-11-09 06:14] LABS: Basophils % 0.1 %; Hematocrit 35.4 % (35.3-44.9); Immature Granulocytes % 0.5 % (0-4); Lymphocytes # 0.7 K/mcL (0.6-4.6); Lymphocytes % 8.2 %; Mean Corpuscular HGB Conc 31.1 g/dL (31.6-35.5); Mean Corpuscular Hemoglobin 29.4 pg (28.0-33.3); Mean Corpuscular Volume 94.7 fL (83.0-100.0); Mean Platelet Volume 11.5 fL (9.4-12.4); Monocytes # 0.2 K/mcL (0.0-1.3); Monocytes % 1.8 %; Neutrophils # 7.6 K/mcL (1.6-8.9); Platelet Count 154 K/mcL (140-400); Red Blood Count 3.74 M/mcL (3.82-4.97); Red Cell Distribution Width 14.1 % (11.5-14.5); Segmented Neutrophils % 89.4 %; White Blood Count 8.5 K/mcL (4.3-11.1)
[2020-11-09 06:33] VITALS: BP 116/80
[2020-11-09] MEDS ORDERED: Aspirin Enteric Coated 81 MG Tablet PO SCH (09:00)
== END 2020-11-09 08:08 | disposition short-term general hospital (02) | DRG 280 ==
LOC: EMEROOARM 08:12 → ICNU 13:00
PROVIDERS: ADMIT Internal Medicine; ATTEND Internal Medicine

== ENCOUNTER 2021-04-24 07:31 | Inpatient (IN) ==
[2021-04-24] MEDS ORDERED: 0.9 % Sodium Chloride 500 ML IVC ONE (07:53)
[2021-04-24] MEDS ORDERED: Aspirin 81 MG TAB.CHEW PO ONE (07:53)
[2021-04-24 08:17] LABS: Basophils # 0.1 K/mcL (0.0-0.2); Basophils % 0.8 %; Eosinophils # 0.3 K/mcL (0.0-0.6); Eosinophils % 3.9 %; Hematocrit 32.5 % (35.3-44.9); Hemoglobin 10.4 g/dL (11.5-15.4); Immature Granulocytes % 1.1 % (0-4); Lymphocytes # 1.5 K/mcL (0.6-4.6); Lymphocytes % 21.8 %; Mean Corpuscular Hemoglobin 28.8 pg (28.0-33.3); Mean Platelet Volume 10.8 fL (9.4-12.4); Monocytes # 0.4 K/mcL (0.0-1.3); Monocytes % 6.6 %; Neutrophils # 4.4 K/mcL (1.6-8.9); Platelet Count 210 K/mcL (140-400); Red Blood Count 3.61 M/mcL (3.82-4.97); Red Cell Distribution Width 13.5 % (11.5-14.5); Segmented Neutrophils % 65.8 %; White Blood Count 6.7 K/mcL (4.3-11.1)
[2021-04-24] MEDS ORDERED: Isovue-370 500 ML BOTTLE IVP ONE (08:20)
[2021-04-24] MEDS ORDERED: MethylPREDNISolone 40 MG/ML VIAL IVP ONE (08:26)
[2021-04-24 08:40] LABS: Albumin 3.4 g/dL (3.5-5.7); Albumin/Globulin Ratio 1.1 (1.1-2.2); Bilirubin,Indirect 0.6 mg/dL (0.0-1.0); Bilirubin,Total 0.6 mg/dL (0.3-1.0); Potassium 3.8 mEq/L (3.5-5.1); Total Protein 6.4 g/dL (6.4-8.9)
[2021-04-24 09:10] LABS: Troponin I 0.03 ng/mL (< 0.04)
[2021-04-24 09:18] LABS: Adenovirus Not Detected (Not Detect); Bordetella Pertussis Not Detected (Not Detect); Chlamydophila pneumoniae Not Detected (Not Detect); Coronavirus 229E Not Detected (Not Detect); Coronavirus HKU1 Not Detected (Not Detect); Coronavirus NL63 Not Detected (Not Detect); Coronavirus OC43 Not Detected (Not Detect); Human Metapneumovirus Not Detected (Not Detect); Human Rhinovirus/Enterovirus Not Detected (Not Detect); Influenza A Subtype 2009 H1 Not Detected (Not Detect); Influenza B Not Detected (Not Detect); Mycoplasma pneumoniae Not Detected (Not Detect); Parainfluenza Virus 1 Not Detected (Not Detect); Parainfluenza Virus 2 Not Detected (Not Detect); Parainfluenza Virus 3 Not Detected (Not Detect); Parainfluenza Virus 4 Not Detected (Not Detect); Respiratory Syncytial Virus Not Detected (Not Detect); SARS-CoV-2 Not Detected (Not Detect)
[2021-04-24 09:26] LABS: INR 1.1; Prothrombin Time 12.9 Seconds (9.4-12.1)
[2021-04-24 09:28] LABS: Activated Partial Thrombo Time 30.6 Seconds (26.0-36.0)
[2021-04-24] MEDS ORDERED: Perflutren Lipid Microsphere 1.3 ML in 0.9 % Sodium Chloride 8.7 ML IVP PRN ×3 (10:34→11:56)
[2021-04-24] MEDS ORDERED: *HR* Heparin 5,000 UNIT/ML VIAL IVP ONE (10:36)
[2021-04-24] MEDS ORDERED: *HR* Heparin 5,000 UNIT/ML VIAL IVP PRN ×2 (10:36)
[2021-04-24] MEDS ORDERED: Heparin 25,000UNIT/250ML 1/2NS 25,000 UNIT/250 ML IV.SOLN IVC SCH (10:45)
[2021-04-24] MEDS ORDERED: Naloxone 0.4 MG/ML INJ IVP PRN (11:16)
[2021-04-24] MEDS ORDERED: *HR* OxyCODONE Immed Rel 5 MG TABLET PO PRN (11:16)
[2021-04-24] MEDS ORDERED: Melatonin 3 MG TABLET PO PRN (11:16)
[2021-04-24] MEDS ORDERED: Acetaminophen 325 MG TABLET PO PRN (11:16)
[2021-04-24] MEDS ORDERED: *HR* HYDROcodone/Acet 5/325 mg TABLET PO PRN (11:16)
[2021-04-24] MEDS ORDERED: Ondansetron 4 MG/2 ML VIAL IVP PRN (11:16)
[2021-04-24] MEDS: Ipratropium/Albuterol Neb 3 ML IH SCH ×3 (12:12→19:36)
[2021-04-24] MEDS ORDERED: Heparin 1,000 UNITS/500 mL 500 ML ONE (13:05)
[2021-04-24] MEDS ORDERED: ISOVUE-370 200 ML INFUS..BTL ONE (13:05)
[2021-04-24] MEDS ORDERED: *HR* Heparin 10,000 UNIT/10 ML VIAL ONE (13:05)
[2021-04-24] MEDS ORDERED: Nitroglycerin 1,000 MCG/5 ML VIAL IV ONE (13:05)
[2021-04-24] MEDS ORDERED: 0.9 % Sodium Chloride 2,000 ML ONE (13:05)
[2021-04-24 13:29] LABS: Heparin anti-factor XA UFH < 0.04 IU/mL (0.30-0.70)
[2021-04-24] MEDS ORDERED: *HR* Midazolam HCl 2 MG/2 ML VIAL ONE (13:33)
[2021-04-24] MEDS ORDERED: *HR* FentaNYL (PF) 100 MCG/2 ML VIAL ONE (13:34)
[2021-04-24] MEDS ORDERED: methylPREDNISolone 125 MG/2 ML VIAL ONE ×2 (13:34→13:43)
[2021-04-24] MEDS: Budesonide/Formoterol 160/4.5 1 PUFF INH IH SCH (19:36)
[2021-04-24] MEDS: tiZANidine 4 MG TABLET PO SCH (21:37)
[2021-04-24] MEDS: *HR* Heparin 5,000 UNIT/ML VIAL SQ SCH (22:52)
[2021-04-25] MEDS: Ipratropium/Albuterol Neb 3 ML IH SCH ×6 (00:03→20:38)
[2021-04-25 02:17] LABS: Hematocrit 29.6 % (35.3-44.9); Hemoglobin 9.7 g/dL (11.5-15.4); Mean Corpuscular HGB Conc 32.8 g/dL (31.6-35.5); Mean Corpuscular Hemoglobin 29.1 pg (28.0-33.3); Mean Corpuscular Volume 88.9 fL (83.0-100.0); Mean Platelet Volume 11.3 fL (9.4-12.4); Platelet Count 200 K/mcL (140-400); Red Blood Count 3.33 M/mcL (3.82-4.97); Red Cell Distribution Width 13.7 % (11.5-14.5)
[2021-04-25 02:33] LABS: Calcium 8.7 mg/dL (8.6-10.3); Magnesium 1.8 mg/dL (1.6-2.6); Phosphorous 2.9 mg/dL (2.7-4.5); Potassium 3.9 mEq/L (3.5-5.1)
[2021-04-25 02:52] LABS: Iron 40 mcg/dL (50-170)
[2021-04-25 02:54] LABS: Ferritin 108 ng/mL (10-120)
[2021-04-25 02:56] LABS: % Iron Saturation 15 % (15-50); Transferrin 197 mg/dL (203-362)
[2021-04-25 02:59] LABS: Folate 9.3 ng/mL (3.0-16.0)
[2021-04-25] MEDS: *HR* Heparin 5,000 UNIT/ML VIAL SQ SCH ×2 (05:12→13:22)
[2021-04-25] MEDS: Budesonide/Formoterol 160/4.5 1 PUFF INH IH SCH ×2 (07:17→20:11)
[2021-04-25] MEDS: RIOCIGUAT 2 MG PO SCH ×3 (07:48→23:25)
[2021-04-25] MEDS: TREPROSTINIL DIOLAMINE 1 MG PO SCH ×3 (07:52→23:43)
[2021-04-25] MEDS: Aspirin Enteric Coated 81 MG Tablet PO SCH (07:54)
[2021-04-25] MEDS: tiZANidine 4 MG TABLET PO SCH ×2 (07:54→23:23)
[2021-04-25] MEDS: QUEtiapine Fumarate 25 MG TABLET PO SCH (07:55)
[2021-04-25] MEDS: Cyanocobalamin (B-12) 1,000 MCG TABLET PO SCH (07:56)
[2021-04-25] MEDS: Folic Acid 1 MG TABLET PO SCH (07:57)
[2021-04-25] MEDS: Cholecalciferol (D-3) 1,000 UNIT (25MCG) TABLET PO SCH (07:57)
[2021-04-25] MEDS: predniSONE 20 MG TABLET PO SCH (07:57)
[2021-04-25] MEDS: Gabapentin 100 MG CAPSULE PO SCH ×2 (07:57→13:23)
[2021-04-25] MEDS: Multivit/Ca/Min/Fe/FA 1 TAB TABLET PO SCH (07:57)
[2021-04-25] MEDS ORDERED: TREPROSTINIL DIOLAMINE PO SCH (09:00)
[2021-04-25] MEDS ORDERED: TREPROSTINIL DIOLAMINE 0.125 MG PO SCH (09:00)
[2021-04-25] MEDS ORDERED: TREPROSTINIL DIOLAMINE 2.5 MG PO SCH (09:00)
[2021-04-25] MEDS ORDERED: Furosemide 20 MG/2 ML VIAL IVP SCH (09:00)
[2021-04-25] MEDS ORDERED: QUEtiapine Fumarate 25 MG TABLET PO SCH (09:00)
[2021-04-25] MEDS ORDERED: Losartan/HCTZ 50-12.5 TABLET PO SCH (09:00)
[2021-04-25] MEDS ORDERED: 0.9 % Sodium Chloride 1,000 ML ONE (11:09)
[2021-04-25] MEDS ORDERED: 0.9 % Sodium Chloride 500 ML ONE (13:18)
[2021-04-25] MEDS ORDERED: TREPROSTINIL DIOLAMINE 1 MG PO ONE (21:00)
[2021-04-25] MEDS ORDERED: Ringers Solution, Lactated 500 ML IVC ONE (23:15)
[2021-04-26 00:30] LABS: Hematocrit 29.3 % (35.3-44.9); Hemoglobin 9.3 g/dL (11.5-15.4)
[2021-04-26] MEDS: Ipratropium/Albuterol Neb 3 ML IH SCH ×8 (00:32→23:52)
[2021-04-26] MEDS: *HR* Heparin 5,000 UNIT/ML VIAL SQ SCH ×4 (01:31→20:33)
[2021-04-26 04:35] LABS: Basophils % 0.1 %; Hematocrit 28.1 % (35.3-44.9); Immature Granulocytes % 1.2 % (0-4); Lymphocytes # 1.2 K/mcL (0.6-4.6); Lymphocytes % 16.2 %; Mean Corpuscular Volume 90.6 fL (83.0-100.0); Mean Platelet Volume 10.1 fL (9.4-12.4); Monocytes # 0.5 K/mcL (0.0-1.3); Neutrophils # 5.7 K/mcL (1.6-8.9); Platelet Count 193 K/mcL (140-400); Red Cell Distribution Width 14.4 % (11.5-14.5); Segmented Neutrophils % 76.5 %
[2021-04-26 04:40] LABS: White Blood Count 7.5 K/mcL (4.3-11.1)
[2021-04-26 04:52] LABS: Albumin 3.2 g/dL (3.5-5.7); Albumin/Globulin Ratio 1.2 (1.1-2.2); Bilirubin,Total 0.3 mg/dL (0.3-1.0); Calcium 8.6 mg/dL (8.6-10.3); Globulin 2.7 g/dL (2.4-3.5); Potassium 3.9 mEq/L (3.5-5.1); Total Protein 5.9 g/dL (6.4-8.9)
[2021-04-26] MEDS: Doxycycline 100 MG in 0.9 % Sodium Chloride Mini Bag 100 ML IVPB SCH ×2 (05:50→17:09)
[2021-04-26] MEDS ORDERED: Ringers Solution, Lactated 500 ML IVC ONE (06:08)
[2021-04-26] MEDS: Budesonide/Formoterol 160/4.5 1 PUFF INH IH SCH ×2 (07:28→20:24)
[2021-04-26] MEDS ORDERED: Cefepime HCl 2,000 MG in Water for inj. (sterile) 20 ML IVP SCH (08:00)
[2021-04-26] MEDS: Albumin 25% 25gram/100mL 25 GM/100 ML IV.SOLN IVC SCH ×2 (08:12→09:53)
[2021-04-26] MEDS: Folic Acid 1 MG TABLET PO SCH (08:13)
[2021-04-26] MEDS: Multivit/Ca/Min/Fe/FA 1 TAB TABLET PO SCH (08:13)
[2021-04-26] MEDS: Cholecalciferol (D-3) 1,000 UNIT (25MCG) TABLET PO SCH (08:13)
[2021-04-26] MEDS: Cyanocobalamin (B-12) 1,000 MCG TABLET PO SCH (08:13)
[2021-04-26] MEDS: Aspirin Enteric Coated 81 MG Tablet PO SCH (08:13)
[2021-04-26] MEDS: RIOCIGUAT 2 MG PO SCH ×3 (08:16→20:35)
[2021-04-26] MEDS: QUEtiapine Fumarate 25 MG TABLET PO SCH (08:19)
[2021-04-26] MEDS: TREPROSTINIL DIOLAMINE 1 MG PO SCH ×3 (08:19→20:36)
[2021-04-26] MEDS: TREPROSTINIL DIOLAMINE 0.125 MG PO SCH ×3 (08:19→20:36)
[2021-04-26] MEDS: tiZANidine 4 MG TABLET PO SCH ×2 (08:21→20:33)
[2021-04-26] MEDS: predniSONE 20 MG TABLET PO SCH (08:22)
[2021-04-26] MEDS: Norepinephrine 4 MG/254 ML IV.SOLN IVC SCH (10:45)
[2021-04-26] MEDS: *HR* LORazepam 0.5 MG TABLET PO PRN (14:12)
[2021-04-26] MEDS: Gabapentin 100 MG CAPSULE PO SCH ×2 (16:24→20:32)
[2021-04-26] MEDS: Cefepime HCl 2,000 MG in Water for inj. (sterile) 20 ML IVP SCH (17:08)
[2021-04-26] MEDS ORDERED: Gabapentin 100 MG CAPSULE PO SCH (21:00)
[2021-04-26] MEDS ORDERED: QUEtiapine Fumarate 25 MG TABLET PO SCH (21:00)
[2021-04-27] MEDS: Ipratropium/Albuterol Neb 3 ML IH SCH ×7 (04:10→23:40)
[2021-04-27] MEDS: *HR* Heparin 5,000 UNIT/ML VIAL SQ SCH ×3 (05:38→20:24)
[2021-04-27] MEDS: Norepinephrine 4 MG/254 ML IV.SOLN IVC SCH (05:38)
[2021-04-27] MEDS: Doxycycline 100 MG in 0.9 % Sodium Chloride Mini Bag 100 ML IVPB SCH ×2 (05:38→18:25)
[2021-04-27] MEDS: *HR* LORazepam 0.5 MG TABLET PO PRN ×2 (05:39→21:42)
[2021-04-27] MEDS: Cefepime HCl 2,000 MG in Water for inj. (sterile) 20 ML IVP SCH ×2 (05:39→18:25)
[2021-04-27 06:51] LABS: Basophils % 0.2 %; Eosinophils % 0.3 %; Hematocrit 28.7 % (35.3-44.9); Hemoglobin 9.1 g/dL (11.5-15.4); Immature Granulocytes % 1.9 % (0-4); Lymphocytes # 1.5 K/mcL (0.6-4.6); Lymphocytes % 23.9 %; Mean Corpuscular HGB Conc 31.7 g/dL (31.6-35.5); Mean Corpuscular Hemoglobin 29.3 pg (28.0-33.3); Mean Corpuscular Volume 92.3 fL (83.0-100.0); Mean Platelet Volume 10.7 fL (9.4-12.4); Monocytes # 0.4 K/mcL (0.0-1.3); Monocytes % 6.7 %; Neutrophils # 4.3 K/mcL (1.6-8.9); Platelet Count 212 K/mcL (140-400); Red Blood Count 3.11 M/mcL (3.82-4.97); Red Cell Distribution Width 14.6 % (11.5-14.5); White Blood Count 6.5 K/mcL (4.3-11.1)
[2021-04-27 07:09] LABS: Calcium 8.9 mg/dL (8.6-10.3); Potassium 3.9 mEq/L (3.5-5.1)
[2021-04-27] MEDS: Budesonide/Formoterol 160/4.5 1 PUFF INH IH SCH ×3 (07:25→19:24)
[2021-04-27] MEDS: Aspirin Enteric Coated 81 MG Tablet PO SCH (07:42)
[2021-04-27] MEDS: predniSONE 20 MG TABLET PO SCH (07:42)
[2021-04-27] MEDS: Cholecalciferol (D-3) 1,000 UNIT (25MCG) TABLET PO SCH (07:42)
[2021-04-27] MEDS: Multivit/Ca/Min/Fe/FA 1 TAB TABLET PO SCH (07:42)
[2021-04-27] MEDS: tiZANidine 4 MG TABLET PO SCH ×2 (07:43→19:56)
[2021-04-27] MEDS: Folic Acid 1 MG TABLET PO SCH (07:43)
[2021-04-27] MEDS: TREPROSTINIL DIOLAMINE 1 MG PO SCH (07:43)
[2021-04-27] MEDS: Cyanocobalamin (B-12) 1,000 MCG TABLET PO SCH (07:43)
[2021-04-27] MEDS: Gabapentin 100 MG CAPSULE PO SCH ×3 (07:43→19:57)
[2021-04-27] MEDS: RIOCIGUAT 2 MG PO SCH (07:44)
[2021-04-27] MEDS: TREPROSTINIL DIOLAMINE 0.125 MG PO SCH (07:44)
[2021-04-27] MEDS ORDERED: Naloxone 0.4 MG/ML INJ IVP PRN (11:42)
[2021-04-27] MEDS ORDERED: Acetaminophen 325 MG TABLET PO PRN (11:42)
[2021-04-27] MEDS ORDERED: Melatonin 3 MG TABLET PO PRN (11:42)
[2021-04-27] MEDS ORDERED: Ondansetron 4 MG/2 ML VIAL IVP PRN (11:42)
[2021-04-27] MEDS: Patient Taking Own Medication 1 EACH PO SCH ×6 (14:36→20:01)
[2021-04-27] MEDS: QUEtiapine Fumarate 25 MG TABLET PO SCH (19:57)
[2021-04-28] MEDS: Ipratropium/Albuterol Neb 3 ML IH SCH ×5 (03:43→19:59)
[2021-04-28] MEDS: Cefepime HCl 2,000 MG in Water for inj. (sterile) 20 ML IVP SCH ×2 (05:33→17:13)
[2021-04-28] MEDS: *HR* Heparin 5,000 UNIT/ML VIAL SQ SCH ×3 (05:34→22:25)
[2021-04-28 05:38] LABS: Basophils % 0.5 %; Eosinophils % 0.2 %; Hematocrit 30.3 % (35.3-44.9); Hemoglobin 9.4 g/dL (11.5-15.4); Immature Granulocytes % 2.6 % (0-4); Lymphocytes # 1.3 K/mcL (0.6-4.6); Lymphocytes % 20.4 %; Mean Corpuscular Hemoglobin 28.7 pg (28.0-33.3); Mean Corpuscular Volume 92.7 fL (83.0-100.0); Mean Platelet Volume 10.1 fL (9.4-12.4); Monocytes # 0.5 K/mcL (0.0-1.3); Monocytes % 7.6 %; Neutrophils # 4.3 K/mcL (1.6-8.9); Platelet Count 219 K/mcL (140-400); Red Blood Count 3.27 M/mcL (3.82-4.97); Red Cell Distribution Width 14.7 % (11.5-14.5); Segmented Neutrophils % 68.7 %; White Blood Count 6.2 K/mcL (4.3-11.1)
[2021-04-28] MEDS: Doxycycline 100 MG in 0.9 % Sodium Chloride Mini Bag 100 ML IVPB SCH (05:39)
[2021-04-28 05:53] LABS: Albumin 3.3 g/dL (3.5-5.7); Albumin/Globulin Ratio 1.3 (1.1-2.2); Bilirubin,Total 0.5 mg/dL (0.3-1.0); Globulin 2.5 g/dL (2.4-3.5); Magnesium 1.8 mg/dL (1.6-2.6); Phosphorous 2.5 mg/dL (2.7-4.5); Potassium 3.7 mEq/L (3.5-5.1); Total Protein 5.8 g/dL (6.4-8.9)
[2021-04-28 05:55] LABS: VBG Ionized Calcium 1.23 mmol/L (1.15-1.35)
[2021-04-28] MEDS: Budesonide/Formoterol 160/4.5 1 PUFF INH IH SCH ×2 (08:02→19:59)
[2021-04-28] MEDS: Cholecalciferol (D-3) 1,000 UNIT (25MCG) TABLET PO SCH (09:43)
[2021-04-28] MEDS: Aspirin Enteric Coated 81 MG Tablet PO SCH (09:43)
[2021-04-28] MEDS: predniSONE 20 MG TABLET PO SCH (09:43)
[2021-04-28] MEDS: Cyanocobalamin (B-12) 1,000 MCG TABLET PO SCH (09:44)
[2021-04-28] MEDS: Multivit/Ca/Min/Fe/FA 1 TAB TABLET PO SCH (09:44)
[2021-04-28] MEDS: Gabapentin 100 MG CAPSULE PO SCH ×3 (09:44→22:25)
[2021-04-28] MEDS: Folic Acid 1 MG TABLET PO SCH (09:44)
[2021-04-28] MEDS: tiZANidine 4 MG TABLET PO SCH ×2 (09:45→22:24)
[2021-04-28] MEDS: Patient Taking Own Medication 1 EACH PO SCH ×13 (09:53→22:29)
[2021-04-28] MEDS: *HR* LORazepam 0.5 MG TABLET PO PRN (15:58)
[2021-04-28] MEDS: Doxycycline 100 MG CAPSULE PO SCH (17:13)
[2021-04-28] MEDS: QUEtiapine Fumarate 25 MG TABLET PO SCH (22:24)
[2021-04-29] MEDS: Ipratropium/Albuterol Neb 3 ML IH SCH ×6 (00:25→19:46)
[2021-04-29] MEDS: Doxycycline 100 MG CAPSULE PO SCH ×2 (05:16→17:39)
[2021-04-29] MEDS: *HR* Heparin 5,000 UNIT/ML VIAL SQ SCH ×3 (05:16→22:32)
[2021-04-29] MEDS: Cefepime HCl 2,000 MG in Water for inj. (sterile) 20 ML IVP SCH ×2 (05:23→17:38)
[2021-04-29] MEDS: Budesonide/Formoterol 160/4.5 1 PUFF INH IH SCH ×2 (07:30→19:45)
[2021-04-29] MEDS: *HR* LORazepam 0.5 MG TABLET PO PRN (09:20)
[2021-04-29] MEDS: Folic Acid 1 MG TABLET PO SCH (09:21)
[2021-04-29] MEDS: Cholecalciferol (D-3) 1,000 UNIT (25MCG) TABLET PO SCH (09:21)
[2021-04-29] MEDS: Aspirin Enteric Coated 81 MG Tablet PO SCH (09:21)
[2021-04-29] MEDS: tiZANidine 4 MG TABLET PO SCH ×2 (09:21→22:31)
[2021-04-29] MEDS: Multivit/Ca/Min/Fe/FA 1 TAB TABLET PO SCH (09:21)
[2021-04-29] MEDS: predniSONE 20 MG TABLET PO SCH (09:22)
[2021-04-29] MEDS: Gabapentin 100 MG CAPSULE PO SCH ×3 (09:22→22:30)
[2021-04-29] MEDS: Patient Taking Own Medication 1 EACH PO SCH ×15 (09:25→22:31)
[2021-04-29] MEDS: Cyanocobalamin (B-12) 1,000 MCG TABLET PO SCH (09:29)
[2021-04-29 19:35] VITALS: BP 127/65; PULSE 83; TEMP 97.8; O2SAT 95
[2021-04-29] MEDS: QUEtiapine Fumarate 25 MG TABLET PO SCH (22:31)
== END 2021-04-29 22:35 | DRG 286 ==
LOC: CDU 07:31 → EMEROOARM 07:31 → SUATTDRO 10:39 → CDU 12:32 → 2NENU 22:42 → ICNU 04-26 06:55 → 2ANU 04-28 13:03
PROVIDERS: ADMIT Internal Medicine; ATTEND Internal Medicine

== ENCOUNTER 2021-04-30 09:48 | Observation (INO) ==
[2021-04-30] MEDS ORDERED: Piperacillin/Tazobactam 3.375 GM in Water for inj. (sterile) 20 ML IVP ONE (10:24)
[2021-04-30] MEDS ORDERED: levoFLOXacin 750 MG/150 ML 750 MG/150 ML BAG IVPB ONE (10:24)
[2021-04-30] MEDS ORDERED: *HR* OxyCODONE/APAP 10/325 TABLET PO ONE (10:30)
[2021-04-30] MEDS ORDERED: Ibuprofen 600 MG TABLET PO ONE (10:31)
[2021-04-30] MEDS ORDERED: Vancomycin 1,500 MG/265 ML IV.SOLN IVPB ONE (11:00)
[2021-04-30 11:12] LABS: VBG HCO3 22 mEq/L (21-27); VBG PCO2 34 mmHg (41-51); VBG PO2 49 mmHg (25-50)
[2021-04-30 11:14] LABS: Basophils % 0.5 %; Eosinophils % 0.4 %; Hematocrit 30.9 % (35.3-44.9); Immature Granulocytes % 3.7 % (0-4); Lymphocytes # 0.8 K/mcL (0.6-4.6); Lymphocytes % 10.3 %; Mean Corpuscular HGB Conc 32.4 g/dL (31.6-35.5); Mean Corpuscular Hemoglobin 29.7 pg (28.0-33.3); Mean Corpuscular Volume 91.7 fL (83.0-100.0); Monocytes # 0.5 K/mcL (0.0-1.3); Monocytes % 5.7 %; Neutrophils # 6.3 K/mcL (1.6-8.9); Platelet Count 189 K/mcL (140-400); Red Blood Count 3.37 M/mcL (3.82-4.97); Red Cell Distribution Width 15.5 % (11.5-14.5); Segmented Neutrophils % 79.4 %; White Blood Count 7.9 K/mcL (4.3-11.1)
[2021-04-30 11:23] LABS: INR 1.1; Prothrombin Time 12.7 Seconds (9.4-12.1)
[2021-04-30 11:26] LABS: Activated Partial Thrombo Time 26.1 Seconds (26.0-36.0)
[2021-04-30 11:29] LABS: Bacteria,Urine Few per hpf (None-Few); Bilirubin,Urine Negative (Negative); Blood,Urine Small (Negative); Clarity,Urine Clear (Clear); Color,Urine Light-Yellow (Yellow); Glucose,Urine (UA) Normal (Normal); Ketones,Urine Negative (Negative); Leukocyte Esterase,Urine Negative (Negative); Mucus,Urine Few per lpf (None-Few); Nitrite,Urine Negative (Negative); Protein,Urine 50 mg/dL (Neg-Trace); RBC,Urine 0-3 per hpf (0-3); Specific Gravity,Urine 1.015 (1.010-1.025); Squamous Epithelial Cell,Urine Few per hpf (None-Few); Urobilinogen,Urine Normal (Normal); WBC,Urine 0-3 per hpf (0-3)
[2021-04-30 11:34] LABS: Albumin 4.1 g/dL (3.5-5.7); Albumin/Globulin Ratio 1.6 (1.1-2.2); Bilirubin,Direct 0.2 mg/dL (0.0-0.2); Bilirubin,Indirect 0.5 mg/dL (0.0-1.0); Bilirubin,Total 0.7 mg/dL (0.3-1.0); Globulin 2.6 g/dL (2.4-3.5); Magnesium 1.6 mg/dL (1.6-2.6); Phosphorous 2.2 mg/dL (2.7-4.5); Potassium 3.7 mEq/L (3.5-5.1); Total Protein 6.7 g/dL (6.4-8.9)
[2021-04-30 11:44] LABS: Troponin I 0.04 ng/mL (< 0.04)
[2021-04-30 12:34] LABS: Calcium 9.3 mg/dL (8.6-10.3)
[2021-04-30 14:18] LABS: Adenovirus Not Detected (Not Detect); Coronavirus 229E Not Detected (Not Detect); Coronavirus HKU1 Not Detected (Not Detect); Coronavirus NL63 Not Detected (Not Detect); Coronavirus OC43 Not Detected (Not Detect)
[2021-04-30 14:19] LABS: Bordetella Pertussis Not Detected (Not Detect); Chlamydophila pneumoniae Not Detected (Not Detect); Human Metapneumovirus Not Detected (Not Detect); Human Rhinovirus/Enterovirus Not Detected (Not Detect); Influenza A Subtype 2009 H1 Not Detected (Not Detect); Influenza B Not Detected (Not Detect); Mycoplasma pneumoniae Not Detected (Not Detect); Parainfluenza Virus 1 Not Detected (Not Detect); Parainfluenza Virus 2 Not Detected (Not Detect); Parainfluenza Virus 3 Not Detected (Not Detect); Parainfluenza Virus 4 Not Detected (Not Detect); Respiratory Syncytial Virus Not Detected (Not Detect); SARS-CoV-2 DETECTED (Not Detect)
[2021-04-30] MEDS ORDERED: Naloxone 0.4 MG/ML INJ IVP PRN (15:57)
[2021-04-30] MEDS ORDERED: Ondansetron 4 MG/2 ML VIAL IVP PRN (18:14)
[2021-04-30] MEDS ORDERED: Acetaminophen 325 MG TABLET PO PRN (18:16)
[2021-04-30] MEDS ORDERED: TREPROSTINIL DIOLAMINE 0.125 MG PO SCH (21:00)
[2021-04-30] MEDS ORDERED: TREPROSTINIL DIOLAMINE PO SCH (21:00)
[2021-04-30] MEDS ORDERED: RIOCIGUAT 2 MG PO SCH (21:00)
[2021-04-30] MEDS ORDERED: tiZANidine 4 MG TABLET PO SCH (21:00)
[2021-04-30] MEDS ORDERED: TREPROSTINIL DIOLAMINE 1 MG PO SCH (21:00)
[2021-04-30] MEDS ORDERED: Gabapentin 100 MG CAPSULE PO SCH (21:00)
[2021-04-30] MEDS ORDERED: TREPROSTINIL DIOLAMINE 2.5 MG PO SCH (21:00)
[2021-04-30] MEDS ORDERED: *HR* LORazepam 2 MG/ML VIAL IVP ONE (21:19)
[2021-04-30] MEDS ORDERED: Furosemide 40 MG/4 ML VIAL IVP ONE (23:11)
[2021-05-01 02:28] LABS: Basophils % 0.3 %; Eosinophils # 0.1 K/mcL (0.0-0.6); Eosinophils % 0.8 %; Hemoglobin 9.3 g/dL (11.5-15.4); Immature Granulocytes % 4.4 % (0-4); Lymphocytes # 0.3 K/mcL (0.6-4.6); Lymphocytes % 5.4 %; Mean Corpuscular HGB Conc 32.1 g/dL (31.6-35.5); Mean Corpuscular Hemoglobin 29.3 pg (28.0-33.3); Mean Corpuscular Volume 91.5 fL (83.0-100.0); Mean Platelet Volume 10.7 fL (9.4-12.4); Monocytes # 0.4 K/mcL (0.0-1.3); Monocytes % 7.2 %; Neutrophils # 4.9 K/mcL (1.6-8.9); Platelet Count 141 K/mcL (140-400); Red Blood Count 3.17 M/mcL (3.82-4.97); Red Cell Distribution Width 15.4 % (11.5-14.5); Segmented Neutrophils % 81.9 %
[2021-05-01 02:37] LABS: Calcium 8.8 mg/dL (8.6-10.3); Potassium 3.9 mEq/L (3.5-5.1)
[2021-05-01 04:05] VITALS: BP 93/56; PULSE 79; TEMP 97.5; O2SAT 97
[2021-05-01] MEDS ORDERED: Ringers Solution, Lactated 1,000 ML ONE (04:20)
[2021-05-01] MEDS ORDERED: Ringers Solution, Lactated 250 ML IVC PRN (05:04)
[2021-05-01] MEDS ORDERED: Aspirin Enteric Coated 81 MG Tablet PO SCH (09:00)
[2021-05-01] MEDS ORDERED: QUEtiapine Fumarate 25 MG TABLET PO SCH (09:00)
== END 2021-05-01 05:03 | disposition short-term general hospital (02) ==
LOC: EMEROOARM 09:48 → 2ANU 09:48
PROVIDERS: ADMIT General Practice; ATTEND General Practice